=== PATIENT | female | born 1960 | race Caucasian/White ===

== ENCOUNTER 2016-07-31 13:51 | Observation (INO) | payer OTHER ==
[~2016-07-31] VITALS: Ht 160 cm; Wt 66.9 kg
[2016-07-31] MEDS ORDERED: SODIUM CHLORIDE 0.9% 1000ML 1,000 ML IV ONE (15:33)
[2016-07-31] MEDS ORDERED: [UNRECOGNIZED DRUG - CODE] TOP (15:42)
[2016-07-31] MEDS ORDERED: ESTVR2 VAGRING (15:42)
[2016-07-31] MEDS ORDERED: FLUO20CA35 PO (15:42)
[2016-07-31] MEDS ORDERED: ASTN (15:42)
[2016-07-31] MEDS ORDERED: SYN88 PO (15:42)
[2016-07-31] MEDS ORDERED: IBUP-1050 PO (15:42)
[2016-07-31] MEDS ORDERED: DIPH1TAB PO (15:43)
[2016-07-31 16:05] LABS: URINE APPEARANCE CLEAR (CLEAR); URINE BILIRUBIN NEG (NEG); URINE COLOR YELLOW; URINE NITRITE NEG (NEG); URINE PH 6.5 (4.5-7.5); URINE SPECIFIC GRAVITY 1.004 (1.000-1.030); UROBILINOGEN NEG (NEG); ZZUR CULT IF INDIC CLEAN CATCH NO
[2016-07-31 16:10] LABS: MANUAL MICROSCOPIC REQUIRED? NO; REVIEW REQ? YES
--- NOTE | 2016-07-31 16:16 | EMERGENCY ROOM VISIT NOTE ---
History Report prepared by Iraj: Arturo Washington Under the Supervision of: Dr. Denny Box D.O. First contact with patient: 15:24 Chief Complaint: FEVER Stated Complaint: FEVER THIS AM - PATIENT HAS NO SPLEEN History of Present Illness The patient is a 56 year old female who presents to the Emergency Room with complaints of an intermittent fever starting last night. 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 This morning, her highest temperature was 101.8. She also reports chills and diaphoresis. She took Motrin with some relief. For the past week, the patient has been having a cough, runny nose, and sore throat. She received a flu shot this year. The patient denies any lower extremity swelling/ erythema, urinary symptoms, diarrhea, or any other complaints. She has a history of Hodgkin's disease and hypothyroidism. She denies any history of cancer. Her daughter had a fever last week. Source of History: patient Onset: last night Position: other (global) Quality: other (fever) Modifying Factors (Relieving): other (Motrin with some relief) Associated Symptoms: + chills, + cough, + diaphoresis, + sorethroat, No diarrhea, No urinary symptoms Review of Systems See HPI for pertinent positives & negatives. A total of 10 systems reviewed and were otherwise negative. Past Medical & Surgical Medical Problems: (1) Anxiety (2) Chronic rhinitis (3) Hodgkin's disease (4) Hypothyroidism (5) Influenza A (6) Spleen absent Surgical Problems: (1) H/O mastectomy (2) H/O: hysterectomy (3) History of splenectomy (4) Hx of removal of ovary (5) S/P BSO (bilateral salpingo-oophorectomy) (6) S/P hysterectomy (7) S/P mastectomy, bilateral (8) S/P rhinoplasty (9) S/P splenectomy Family History Patient reports no known family medical history. Social History Smoking Status: Never Smoker Marital Status: Occupation Status: employed Current/Historical Medications Scheduled Azelastine Hcl (Astelin Nasal [place]), 2 SPRAYS NA BID Azithromycin (Azithromycin), 250 MG PO DAILY@2000 Clindamycin Hcl (Cleocin), 4 CAP PO UD Estradiol (Vivelle-Dot), 0.375 MG TOP DIRECTED Estradiol (Estring), 2 MG VAGRING [id number] Fluoxetine (Prozac), 20 MG PO QAM Levothyroxine Sodium (Synthroid), 88 MCG PO QAM Oseltamivir Phosphate (Tamiflu), 75 MG PO BID Scheduled PRN Diphenhydramine Hcl (Benadryl Allergy), 25 MG PO HS PRN for Sleep Ibuprofen (Advil), 200-600 MG PO Q4H PRN for Fever Lorazepam (Ativan), 0.5 MG PO BID PRN for Anxiety Allergies Coded Allergies: Penicillins (Verified Allergy, Mild, RASH, ITCHING, 07/31/16) Physical Exam Vital Signs Date Time Temp Pulse Resp B/P Pulse Ox O2 Delivery O2 Flow Rate FiO2 07/31/16 16:15 95 18 95/58 100 Room Air 07/31/16 16:06 100 Room Air 07/31/16 14:00 36.9 122 20 136/79 97 Room Air Physical Exam GENERAL: Patient is awake, alert, and in no acute distress. Patient is resting comfortably and showing no signs of anxiety EYES: Bilateral conjunctival injection noted. PERRL. EOMI. EARS, NOSE, MOUTH AND THROAT: The nose is without any evidence of any deformity. Mucous membranes are moist tongue is midline NECK: Left sided cervical adenopathy noted, no tenderness or firmness. RESPIRATORY: Normal respiratory effort is noted there is no evidence of wheezing rhonchi or rales CARDIOVASCULAR: Tachycardic rate and regular rhythm noted there no murmurs rubs or gallops normal S1 normal S2 GASTROINTESTINAL: The abdomen is soft. Bowel sounds are present in all quadrants. Abdomen is nontender MUSCULOSKELETAL/EXTREMITIES: There is no evidence of gross deformity full range of motion is noted in the hips and shoulders SKIN: There is no obvious evidence of any rash. There are no petechiae, pallor or cyanosis noted. NEUROLOGIC: Patient is awake alert and oriented x3 strength is symmetric patellar reflexes are 2+ bilaterally Medical Decision & Procedures ER Provider Diagnostic Interpretation: X-ray results as stated below per interpretation by me and the radiologist. CHEST ONE VIEW PORTABLE CLINICAL HISTORY: Sepsis FEVER COMPARISON STUDY: No previous studies for comparison. FINDINGS: There are surgical clips within the upper central abdomen and left upper quadrant. There are surgical clips project over the right breast and right axilla. Heart is normal in size. There is no failure. There are no pleural effusions. There is no focal pulmonary consolidation.[ Increased markings superior to the left aortic knob, likely representing a summation. IMPRESSION: AP portable study. No acute findings. Electronically signed by: Fredy Perry M.D. 07/31/2016 4:18 PM Dictated Date/Time: 07/31/2016 4:16 PM Laboratory Results Test 07/31/16 15:50 07/31/16 16:00 07/31/16 16:10 Urine Color YELLOW Urine Appearance CLEAR (CLEAR) Urine pH 6.5 (4.5-7.5) Urine Specific [place] 1.004 (1.000-1.030) Urine Protein NEG (NEG) Urine Glucose (UA) NEG (NEG) Urine Ketones NEG (NEG) Urine Occult Blood NEG (NEG) Urine Nitrite NEG (NEG) Urine Bilirubin NEG (NEG) Urine Urobilinogen NEG (NEG) Urine Leukocyte Esterase TRACE (NEG) Urine WBC (Auto) 1-5 /hpf (0-5) Urine RBC (Auto) 0-4 /hpf (0-4) Urine Hyaline Casts (Auto) 0 /lpf (0-5) Urine Epithelial Cells (Auto) >30 /lpf (0-5) Urine Bacteria (Auto) NEG (NEG) Influenza Type A (RT-PCR) POS for Influ A (NEG) Influenza Type A Antigen POS for Influ A (NEG) Influenza Type B Antigen Neg for Influ B (NEG) Influenza Type B (RT-PCR) Neg for Influ B (NEG) Immature Granulocyte % (Auto) 0.1 % White Blood Count 11.94 K/uL (4.8-10.8) Red Blood Count 4.90 M/uL (4.2-5.4) Hemoglobin 14.8 g/dL (12.0-16.0) Hematocrit 43.1 % (37-47) Mean Corpuscular Volume 88.0 fL (80-100) Mean Corpuscular Hemoglobin 30.2 pg (25-34) Mean Corpuscular Hemoglobin Concent 34.3 g/dl (32-36) Platelet Count 399 K/uL (130-400) Mean Platelet Volume 12.1 fL (7.4-10.4) Neutrophils (%) (Auto) 64.1 % Lymphocytes (%) (Auto) 13.8 % Monocytes (%) (Auto) 16.7 % Eosinophils (%) (Auto) 4.2 % Basophils (%) (Auto) 1.1 % Neutrophils # (Auto) 7.66 K/uL (1.4-6.5) Lymphocytes # (Auto) 1.65 K/uL (1.2-3.4) Monocytes # (Auto) 1.99 K/uL (0.11-0.59) Eosinophils # (Auto) 0.50 K/uL (0-0.5) Basophils # (Auto) 0.13 K/uL (0-0.2) Immature Granulocyte # (Auto) 0.01 K/uL (0.00-0.02) Erythrocyte Sedimentation Rate 21 mm/hr (0-21) Prothrombin Time 10.7 SECONDS (9.0-12.0) Prothromb Time International Ratio 1.0 (0.9-1.1) Activated Partial Thromboplast Time 32.0 SECONDS (21.0-31.0) Partial Thromboplastin Ratio 1.2 Magnesium Level 2.1 mg/dl (1.8-2.4) Total Bilirubin 0.3 mg/dl (0.2-1) Aspartate Amino Transf (AST/SGOT) 18 U/L (15-37) Alanine Aminotransferase (ALT/SGPT) 26 U/L (12-78) Alkaline Phosphatase 108 U/L (45-117) C-Reactive Protein 4.10 mg/dl (0-0.29) Total Protein 7.8 gm/dl (6.4-8.2) Albumin 3.8 gm/dl (3.4-5.0) Globulin 4.0 gm/dl (2.5-4.0) Albumin/Globulin Ratio 1.0 (0.9-2) Bedside Lactic Acid Venous 1.51 mmol/L (0.90-1.70) Laboratory results per my review. Medications Administered Medications (Trade) Dose Ordered Sig/Nannette Route Start Time Stop Time Status Last Admin Dose Admin Sodium Chloride 1,000 ml @ 999 mls/hr Q1H1M ONCE IV 07/31/16 15:33 07/31/16 16:33 DC 07/31/16 15:33 999 MLS/HR Sodium Chloride (Nss 1000ml) 1,000 ml @ 999 mls/hr Q1H1M STAT IV 07/31/16 16:36 07/31/16 17:36 DC 07/31/16 16:36 999 MLS/HR Oseltamivir Phosphate (Tamiflu Cap) 75 mg ONE STAT PO 07/31/16 16:36 07/31/16 16:37 DC 07/31/16 16:36 75 MG ED Course 1524: The patient was evaluated in room B11B. A complete history and physical examination were performed. 1533: Sodium Chloride 1000 ml @ 999 mls/hr IV 1636: Tamiflu Cap 75 mg PO, Sodium Chloride 1000 ml @ 999 mls/hr IV 1732: Upon reevaluation, the patient is resting comfortably. I discussed results and treatment plan with her. She verbalizes agreement and understanding. I spoke with Dr. [facility]. The patient will be evaluated for further management and care. Medical Decision Differential diagnosis: Etiologies such as viral syndrome, otitis, pharyngitis, pneumonia, influenza, meningitis, urinary tract infection, sepsis, bacteremia, as well as others were entertained. Nursing notes reviewed. The patient is a 56-year-old female who presented to the emergency department for an evaluation of fever. The patient's had fever as well as upper respiratory symptoms. Unfortunate patient has a history of splenectomy. She had very significant fever prior to arrival. She also had a few episodes of hypotension with responded nicely to IV hydration. I discussed the patient's laboratory radiographic studies with her. She was started on Tamiflu. Because of her history of having no spleen I also discussed his case with the on-call [facility] hospitalist group. They have agreed to evaluate the patient in the emergency apartment for further management and disposition. I will defer empiric antibiotic treatment to the admitting team. Consults Time Called: [phone] Consulting Physician: Dr. Campbell of the [facility] Hospitalist Service Returned Call: [phone] Campbell of the [facility]. Impression Primary Impression: Fever Additional Impressions: Influenza Transient hypotension Tachycardia History of splenectomy Scribe Attestation The scribe's documentation has been prepared under my direction and personally reviewed by me in its entirety. I confirm that the note above accurately reflects all work, treatment, procedures, and medical decision making performed by me. Departure Information Dispostion Being Evaluated By Hospitalist Prescriptions Oseltamivir Phosphate (Tamiflu) 75 Mg Cap 75 MG PO BID for 4 Days, #8 CAP take first dose at home 08/01 evening Prov: Santa Dinero CRNP 08/01/16 Azithromycin (Azithromycin) 250 Mg Tab 250 MG PO DAILY@1999 for 4 Days, #4 TAB take first dose at home on 08/01 evening Prov: Sanat Dinero CRNP 08/01/16 Referrals Bran Coughlin M.D.(JASON) (PCP) Patient Instructions My [facility] Problem Qualifiers
--- NOTE | 2016-07-31 16:19 | DIAGNOSTIC IMAGING REPORT ---
CHEST ONE VIEW PORTABLE CLINICAL HISTORY: Sepsis FEVER COMPARISON STUDY: No previous studies for comparison. FINDINGS: There are surgical clips within the upper central abdomen and left upper quadrant. There are surgical clips project over the right breast and right axilla. Heart is normal in size. There is no failure. There are no pleural effusions. There is no focal pulmonary consolidation.[ Increased markings superior to the left aortic knob, likely representing a summation. IMPRESSION: AP portable study. No acute findings. Electronically signed by: Fredy Perry M.D. 07/31/2016 4:18 PM Dictated Date/Time: 07/31/2016 4:16 PM
[2016-07-31 16:21] LABS: URINE EPITHELIAL CELL AUTO >30 /lpf (0-5)
[2016-07-31 16:22] LABS: BASO % 1.1 %; BASO ABS # 0.13 K/uL (0-0.2); COMPLETE YES; EOS % 4.2 %; HEMATOCRIT 43.1 % (37-47); IG% 0.1 %; LYMPH % 13.8 %; LYMPH ABS # 1.65 K/uL (1.2-3.4); MEAN CORPUSCULAR HEMOGLOBIN 30.2 pg (25-34); MEAN CORPUSCULAR HGB CONC 34.3 g/dl (32-36); MEAN PLATELET VOLUME 12.1 fL (7.4-10.4); MONO % 16.7 %; NEUT % 64.1 %; PLATELET COUNT 399 K/uL (130-400); WHITE BLOOD COUNT 11.94 K/uL (4.8-10.8)
[2016-07-31 16:31] LABS: PARTIAL THROMBOPLASTIN RATIO 1.2; PROTHROMBIN TIME (PATIENT) 10.7 SECONDS (9.0-12.0)
[2016-07-31] MEDS ORDERED: OSELTAMIVIR PHOSPHATE 75 MG CAP PO STA (16:36)
[2016-07-31] MEDS ORDERED: SODIUM CHLORIDE 0.9% 1000ML 1,000 ML IV STA (16:36)
[2016-07-31 16:47] LABS: BUN/CREATININE RATIO 14.2 (10-20); C-REACTIVE PROTEIN 4.1 mg/dl (0-0.29); MAGNESIUM 2.1 mg/dl (1.8-2.4); POTASSIUM 3.6 mmol/L (3.5-5.1)
[2016-07-31 17:50] LABS: INFLUENZA A PCR POS for Influ A (NEG); INFLUENZA B PCR Neg for Influ B (NEG)
[2016-07-31] MEDS ORDERED: LORAZEPAM 0.5 MG TAB PO PRN (18:00)
[2016-07-31] MEDS ORDERED: MAGNESIUM HYDROXIDE SUSP 30 ML UDC PO PRN (18:00)
[2016-07-31] MEDS ORDERED: ONDANSETRON INJ 2 MG/ML 2 ML VIAL IV PRN (18:00)
[2016-07-31] MEDS ORDERED: ESTRADIOL 2 MG VAGRING SCH (18:00)
[2016-07-31] MEDS ORDERED: POLYETHYLENE (MIRALAX) 17 GM PACK PO PRN (18:00)
[2016-07-31] MEDS ORDERED: IBUPROFEN 200 MG TAB PO PRN (18:00)
[2016-07-31] MEDS ORDERED: ALUMINUM/MAGNESIUM/SIMETH (MAALOX MAX) 30 ML UDC PO PRN (18:00)
[2016-07-31] MEDS ORDERED: ZOLPIDEM TARTRATE 5 MG TAB PO PRN (18:00)
[2016-07-31] MEDS ORDERED: LORA-741 PO (18:06)
[2016-07-31] MEDS ORDERED: CLIN150C PO (18:06)
--- NOTE | 2016-07-31 18:56 | History and Physical ---
History & Physical Date & Time of Service: Jul 31, 2016 at 18:07 Chief Complaint: Fever This Am - Patient Has No Spleen Primary Care Physician: Bran Coughlin M.D.(JASON) History of Present Illness Source: patient, spouse ( at bedside who is a physician), clinic records This is a 56 year old female with PMH of Hodgkin's disease s/p radiation and splenectomy, hypothyroidism, and other problems listed below who presents to the ED with fever. Patient states she became ill 5 days ago with laryngitis like symptoms with loss of her voice for a few days. Since that time she also has rhinorrhea and mildly productive cough, intermittent headache. Then yesterday she developed low grade fever of 99 F for which she took ibuprofen. She awoke with chills overnight and took another dose. Then at 10 am she was feeling feverish so took 400 mg of ibuprofen, but 1 hour later had fever of 101.8, so took additional 200 mg. In the ER she has been afebrile. She had appetite loss with her fever but now feels hungry again. She denies chest pain, SOB, abdominal pain, N/V/D, dysuria, myalgias. Patient's daughter was ill with fever last week. Patient had a seasonal influenza vaccine on 04/29/2016. Past Medical/Surgical History Medical Problems: (1) Chronic rhinitis Status: Chronic (2) Hodgkin's disease Permanent Comment: s/p radiation, in remission Status: Chronic (3) Spleen absent Status: Resolved Surgical Problems: (1) H/O mastectomy Status: Resolved (2) H/O: hysterectomy Status: Resolved (3) History of splenectomy Status: Chronic (4) Hx of removal of ovary Status: Resolved (5) S/P BSO (bilateral salpingo-oophorectomy) Status: Chronic (6) S/P hysterectomy Status: Chronic (7) S/P mastectomy, bilateral Status: Chronic (8) S/P rhinoplasty Status: Chronic (9) S/P splenectomy Status: Chronic Family History Cardiac disorder GRANDFATHER GRANDMOTHER Hypertension FATHER Social History Smoking Status: Never Smoker Alcohol Use: none Marital Status: Housing status: lives with family Immunizations History of Influenza Vaccine: Yes Influenza Vaccine Date: Apr 29, 2016 History of Tetanus Vaccine?: Unknown History of Pneumococcal: Unknown Multi-Drug Resistant Organisms History of MDRO: No Allergies Coded Allergies: Penicillins (Verified Allergy, Mild, RASH, ITCHING, 07/31/16) Home Medications Scheduled Azelastine Hcl (Astelin Nasal [place]), 2 SPRAYS NA BID Azithromycin (Azithromycin), 250 MG PO DAILY@2000 Clindamycin Hcl (Cleocin), 4 CAP PO UD Estradiol (Vivelle-Dot), 0.375 MG TOP DIRECTED Estradiol (Estring), 2 MG VAGRING [id number] Fluoxetine (Prozac), 20 MG PO QAM Levothyroxine Sodium (Synthroid), 88 MCG PO QAM Oseltamivir Phosphate (Tamiflu), 75 MG PO BID Scheduled PRN Diphenhydramine Hcl (Benadryl Allergy), 25 MG PO HS PRN for Sleep Ibuprofen (Advil), 200-600 MG PO Q4H PRN for Fever Lorazepam (Ativan), 0.5 MG PO BID PRN for Anxiety Review of Systems Ten point review of systems performed with pertinent positives and negatives noted in HPI. Physical Exam Vital Signs Date Time Temp Pulse Resp B/P Pulse Ox O2 Delivery O2 Flow Rate FiO2 07/31/16 17:57 36.2 07/31/16 16:15 95 18 95/58 100 Room Air 07/31/16 16:06 100 Room Air 07/31/16 14:00 36.9 122 20 136/79 97 Room Air General Appearance: WD/WN, no apparent distress, + pertinent finding (very pleasant 56 year old female, at bedside) Head: normocephalic, atraumatic Eyes: normal inspection, PERRL, EOMI, sclerae normal ENT: hearing grossly normal, TMs normal, pharynx normal, + nasal congestion Neck: supple, trachea midline Respiratory/Chest: lungs clear, normal breath sounds, no respiratory distress, no accessory muscle use Cardiovascular: regular rate, rhythm, no murmur Abdomen/GI: normal bowel sounds, non tender, soft Extremities/Musculoskelatal: normal inspection, no calf tenderness, no pedal edema Neurologic/Psych: alert, normal mood/affect, oriented x 3 Skin: normal color, warm/dry Diagnostics Laboratory Results Results Past 24 Hours Test 07/31/16 15:50 07/31/16 16:00 07/31/16 16:10 Range/Units Urine Color YELLOW Urine Appearance CLEAR CLEAR Urine pH 6.5 4.5-7.5 Urine Specific [place] 1.004 1.000-1.030 Urine Protein NEG NEG Urine Glucose (UA) NEG NEG Urine Ketones NEG NEG Urine Occult Blood NEG NEG Urine Nitrite NEG NEG Urine Bilirubin NEG NEG Urine Urobilinogen NEG NEG Urine Leukocyte Esterase TRACE NEG Urine WBC (Auto) 1-5 0-5 /hpf Urine RBC (Auto) 0-4 0-4 /hpf Urine Hyaline Casts (Auto) 0 0-5 /lpf Urine Epithelial Cells (Auto) >30 0-5 /lpf Urine Bacteria (Auto) NEG NEG Influenza Type A (RT-PCR) POS for Influ A NEG Influenza Type A Antigen POS for Influ A NEG Influenza Type B Antigen Neg for Influ B NEG Influenza Type B (RT-PCR) Neg for Influ B NEG White Blood Count 11.94 4.8-10.8 K/uL Red Blood Count 4.90 4.2-5.4 M/uL Hemoglobin 14.8 12.0-16.0 g/dL Hematocrit 43.1 37-47 % Mean Corpuscular Volume 88.0 80-100 fL Mean Corpuscular Hemoglobin 30.2 25-34 pg Mean Corpuscular Hemoglobin Concent 34.3 32-36 g/dl Platelet Count 399 130-400 K/uL Mean Platelet Volume 12.1 7.4-10.4 fL Neutrophils (%) (Auto) 64.1 % Lymphocytes (%) (Auto) 13.8 % Monocytes (%) (Auto) 16.7 % Eosinophils (%) (Auto) 4.2 % Basophils (%) (Auto) 1.1 % Neutrophils # (Auto) 7.66 1.4-6.5 K/uL Lymphocytes # (Auto) 1.65 1.2-3.4 K/uL Monocytes # (Auto) 1.99 0.11-0.59 K/uL Eosinophils # (Auto) 0.50 0-0.5 K/uL Basophils # (Auto) 0.13 0-0.2 K/uL RDW Standard Deviation 46.8 36.4-46.3 fL RDW Coefficient of Variation 14.5 11.5-14.5 % Immature Granulocyte % (Auto) 0.1 % Immature Granulocyte # (Auto) 0.01 0.00-0.02 K/uL Erythrocyte Sedimentation Rate 21 0-21 mm/hr Prothrombin Time 10.7 9.0-12.0 SECONDS Prothromb Time International Ratio 1.0 0.9-1.1 Activated Partial Thromboplast Time 32.0 21.0-31.0 SECONDS Partial Thromboplastin Ratio 1.2 Sodium Level 139 136-145 mmol/L Potassium Level 3.6 3.5-5.1 mmol/L Chloride Level 101 98-107 mmol/L Carbon Dioxide Level 29 21-32 mmol/L Anion Gap 9.0 3-11 mmol/L Blood Urea Nitrogen 14 7-18 mg/dl Creatinine 1.00 0.60-1.20 mg/dl Est Creatinine Clear Calc Drug Dose 57.7 ml/min Estimated GFR () 72.9 Estimated GFR (Non- 62.9 BUN/Creatinine Ratio 14.2 10-20 Random Glucose 80 70-99 mg/dl Calcium Level 9.0 8.5-10.1 mg/dl Magnesium Level 2.1 1.8-2.4 mg/dl Total Bilirubin 0.3 0.2-1 mg/dl Aspartate Amino Transf (AST/SGOT) 18 15-37 U/L Alanine Aminotransferase (ALT/SGPT) 26 12-78 U/L Alkaline Phosphatase 108 45-117 U/L C-Reactive Protein 4.10 0-0.29 mg/dl Total Protein 7.8 6.4-8.2 gm/dl Albumin 3.8 3.4-5.0 gm/dl Globulin 4.0 2.5-4.0 gm/dl Albumin/Globulin Ratio 1.0 0.9-2 Bedside Lactic Acid Venous 1.51 0.90-1.70 mmol/L Microbiology Results 07/31/16 Blood Culture, Received Pending 07/31/16 Blood Culture, Received Pending Diagnostic Radiology CHEST ONE VIEW PORTABLE CLINICAL HISTORY: Sepsis FEVER COMPARISON STUDY: No previous studies for comparison. FINDINGS: There are surgical clips within the upper central abdomen and left upper quadrant. There are surgical clips project over the right breast and right axilla. Heart is normal in size. There is no failure. There are no pleural effusions. There is no focal pulmonary consolidation.[ Increased markings superior to the left aortic knob, likely representing a summation. IMPRESSION: AP portable study. No acute findings. Impression Assessment and Plan UPPER RESPIRATORY INFECTION Afebrile; +leukocytosis (WBC 11.9); + tachycardia; BP 90s-100s/50's; lactic acid 1.5 Influenza A positive CXR- no infiltrate Blood cultures pending Given Tamiflu and IVF's in ER Continue Tamiflu Add azithromycin to cover for possible superimposed acute bacterial bronchitis Continue IV fluids, PRN antipyretics Droplet precautions HODGKIN'S DISEASE S/p radiation and splenectomy; in remission HYPOTHYROIDISM Continue levothyroxine ANXIETY Stable; continue fluoxetine and PRN lorazepam DVT PROPHYLAXIS SCD's DISPOSITION Observation to med/ surg Follows with Dr. Coughlin for primary care Patient seen in collaboration with Dr. Campbell. Please see her addendum. ATTENDING NOTE : pt seen and examined, in agreement with above H&P 56 yo F with past medical hx of NHL s/p splenectomy presented with fever , chills , URI symptom Influenza A + ve P/E: gen : no sign of distress HEENT: sclera nonicteric Lungs: CTA HT: regular S1/S2 abdomen; soft, non tender ext : no lower ext edema Neuro: no focal deficit A/P : Influenza A : no evidence of sepsis Tamiflu PO for 5 days UTI ; possible due to above will order empiric abx with Zithromax increased risk for superimposed bacterial infection due to immunocompromised status -s/p splenectomy VTE Prophylaxis VTE Risk Assessment Done? Y/N: Yes Risk Level: Moderate
[2016-07-31 19:15] VITALS: BP 134/78; PULSE 105; TEMP 37.6; O2SAT 96
[2016-07-31] MEDS ORDERED: AZITHROMYCIN 250 MG TAB PO ONE (20:00)
[2016-07-31] MEDS: SODIUM CHLORIDE 0.9% 1000ML 1,000 ML IV SCH (21:02)
[2016-07-31] MEDS: OSELTAMIVIR PHOSPHATE 75 MG CAP PO SCH (21:04)
[2016-07-31 21:57] VITALS: BP 134/78; PULSE 105; TEMP 37.6; O2SAT 96; Ht 160 cm; Wt 66.9 kg
[2016-07-31 23:59] VITALS: BP 106/63; PULSE 111; TEMP 38.7; O2SAT 93
[2016-08-01] MEDS: ACETAMINOPHEN 325 MG TAB PO PRN ×2 (00:01→09:07)
[2016-08-01 01:09] VITALS: TEMP 37.5
[2016-08-01] MEDS: SODIUM CHLORIDE 0.9% 1000ML 1,000 ML IV SCH (04:30)
[2016-08-01 04:33] VITALS: TEMP 36.7
[2016-08-01] MEDS ORDERED: LEVOTHYROXINE 88 MCG TAB PO SCH (06:30)
[2016-08-01 07:10] VITALS: BP 101/63; PULSE 84; TEMP 36.8; O2SAT 93
[2016-08-01 07:15] LABS: HEMATOCRIT 38.7 % (37-47); MEAN CORPUSCULAR HEMOGLOBIN 29.8 pg (25-34); MEAN CORPUSCULAR HGB CONC 33.9 g/dl (32-36); MEAN PLATELET VOLUME 11.8 fL (7.4-10.4); PLATELET COUNT 361 K/uL (130-400); WHITE BLOOD COUNT 8.35 K/uL (4.8-10.8)
[2016-08-01 07:39] LABS: BUN/CREATININE RATIO 13.1 (10-20); CALCIUM 8.3 mg/dl (8.5-10.1); CREATININE 0.85 mg/dl (0.60-1.20)
[2016-08-01 08:00] VITALS: O2SAT 93
[2016-08-01] MEDS ORDERED: FLUOXETINE HCL 20 MG CAP PO SCH (08:00)
[2016-08-01] MEDS ORDERED: PANTOprazole SOD 40 MG TAB PO SCH (08:00)
[2016-08-01] MEDS: OSELTAMIVIR PHOSPHATE 75 MG CAP PO SCH (09:02)
--- NOTE | 2016-08-01 10:58 | Hospitalist Progress Note ---
Hospitalist Progress Note Date of Service Aug 01, 2016. Subjective Patient seen and examined Feeling much better this AM Cough is productive at time, feels it is due to post nasal drip Afebrile overnight, denies feeling feverish or chills No chest pain, shortness of breath, abdominal pain, nausea, lightheadedness, or dizziness Objective Vital Signs Date Time Temp Pulse Resp B/P Pulse Ox O2 Delivery O2 Flow Rate FiO2 08/01/16 08:00 93 Room Air 08/01/16 07:10 36.8 84 18 101/63 93 Room Air 08/01/16 04:33 36.7 08/01/16 01:09 37.5 08/01/16 00:00 Room Air 07/31/16 23:59 38.7 111 20 106/63 93 Room Air 07/31/16 23:59 38.7 07/31/16 21:57 37.6 105 20 134/78 96 Room Air 07/31/16 19:15 37.6 105 20 134/78 96 Room Air 07/31/16 18:17 101 18 107/57 99 Room Air 07/31/16 17:57 36.2 07/31/16 16:15 95 18 95/58 100 Room Air 07/31/16 16:06 100 Room Air 07/31/16 14:00 36.9 122 20 136/79 97 Room Air Physical Exam General Appearance: no apparent distress Eyes: normal inspection ENT: hearing grossly normal Neck: supple, no JVD Respiratory/Chest: lungs clear, normal breath sounds, no respiratory distress Cardiovascular: regular rate, rhythm, no edema Abdomen: normal bowel sounds, non tender, soft Neurologic/Psychiatric: no motor/sensory deficits, alert, normal mood/affect, oriented x 3 Skin: normal color, warm/dry Laboratory Results Last 24 Hours Test 07/31/16 15:50 07/31/16 16:00 07/31/16 16:10 08/01/16 06:35 Urine Color YELLOW Urine Appearance CLEAR Urine pH 6.5 Urine Specific [place] 1.004 Urine Protein NEG Urine Glucose (UA) NEG Urine Ketones NEG Urine Occult Blood NEG Urine Nitrite NEG Urine Bilirubin NEG Urine Urobilinogen NEG Urine Leukocyte Esterase TRACE Urine WBC (Auto) 1-5 /hpf Urine RBC (Auto) 0-4 /hpf Urine Hyaline Casts (Auto) 0 /lpf Urine Epithelial Cells (Auto) >30 /lpf Urine Bacteria (Auto) NEG Influenza Type A (RT-PCR) POS for Influ A Influenza Type A Antigen POS for Influ A Influenza Type B Antigen Neg for Influ B Influenza Type B (RT-PCR) Neg for Influ B White Blood Count 11.94 K/uL 8.35 K/uL Red Blood Count 4.90 M/uL 4.40 M/uL Hemoglobin 14.8 g/dL 13.1 g/dL Hematocrit 43.1 % 38.7 % Mean Corpuscular Volume 88.0 fL 88.0 fL Mean Corpuscular Hemoglobin 30.2 pg 29.8 pg Mean Corpuscular Hemoglobin Concent 34.3 g/dl 33.9 g/dl Platelet Count 399 K/uL 361 K/uL Mean Platelet Volume 12.1 fL 11.8 fL Neutrophils (%) (Auto) 64.1 % Lymphocytes (%) (Auto) 13.8 % Monocytes (%) (Auto) 16.7 % Eosinophils (%) (Auto) 4.2 % Basophils (%) (Auto) 1.1 % Neutrophils # (Auto) 7.66 K/uL Lymphocytes # (Auto) 1.65 K/uL Monocytes # (Auto) 1.99 K/uL Eosinophils # (Auto) 0.50 K/uL Basophils # (Auto) 0.13 K/uL RDW Standard Deviation 46.8 fL 48.0 fL RDW Coefficient of Variation 14.5 % 14.9 % Immature Granulocyte % (Auto) 0.1 % Immature Granulocyte # (Auto) 0.01 K/uL Erythrocyte Sedimentation Rate 21 mm/hr Prothrombin Time 10.7 SECONDS Prothromb Time International Ratio 1.0 Activated Partial Thromboplast Time 32.0 SECONDS Partial Thromboplastin Ratio 1.2 Sodium Level 139 mmol/L 145 mmol/L Potassium Level 3.6 mmol/L 4.0 mmol/L Chloride Level 101 mmol/L 112 mmol/L Carbon Dioxide Level 29 mmol/L 23 mmol/L Anion Gap 9.0 mmol/L 10.0 mmol/L Blood Urea Nitrogen 14 mg/dl 11 mg/dl Creatinine 1.00 mg/dl 0.85 mg/dl Est Creatinine Clear Calc Drug Dose 57.7 ml/min 67.9 ml/min Estimated GFR () 72.9 88.8 Estimated GFR (Non- 62.9 76.6 BUN/Creatinine Ratio 14.2 13.1 Random Glucose 80 mg/dl 85 mg/dl Calcium Level 9.0 mg/dl 8.3 mg/dl Magnesium Level 2.1 mg/dl Total Bilirubin 0.3 mg/dl Aspartate Amino Transf (AST/SGOT) 18 U/L Alanine Aminotransferase (ALT/SGPT) 26 U/L Alkaline Phosphatase 108 U/L C-Reactive Protein 4.10 mg/dl Total Protein 7.8 gm/dl Albumin 3.8 gm/dl Globulin 4.0 gm/dl Albumin/Globulin Ratio 1.0 Bedside Lactic Acid Venous 1.51 mmol/L Assessment and Plan INFLUENZA A / URI - patient presenting with 5 days laryngitis and rhinorrhea, fever x 1 day - in the ER, patient afebrile with mild leukocytosis, tachycardia; BP stable, negative lactic acid - WBC normalized today - spiked fever last night around midnight - improved with Tylenol/Motrin - no further fevers - no infiltrate on CXR, blood cultures pending - continue Tamiflu - will d/c IVF today - PO intake is good - empiric azithromycin for possible superimposed bacterial bronchitis - noted patient immunocompromised due to hx splenectomy HODGKIN'S DISEASE - s/p radiation and splenectomy; in remission HYPOTHYROIDISM - continue levothyroxine ANXIETY - continue fluoxetine and PRN lorazepam DVT PROPHYLAXIS - SCD's DISPOSITION - possible d/c later today
[2016-08-01 14:47] VITALS: BP 101/65; PULSE 85; TEMP 37; O2SAT 96
[2016-08-01] MEDS ORDERED: TMF75 PO (14:55)
[2016-08-01] MEDS ORDERED: ZTHM250 PO (14:55)
--- NOTE | 2016-08-01 15:04 | Discharge Instructions ---
Discharge Instructions Admission Reason for Admission: Influenza A Discharge Discharge Diagnosis / Problem: Influenza, Upper Respiratory Infection Discharge Goals Goal(s): Decrease discomfort, Improve function Activity Recommendations Activity Limitations: resume your previous activity . Instructions / Follow-Up Instructions / Follow-Up Follow up with Dr. Coughlin on SundayAugust 07 at 9:10 You were admitted to the hospital for influenza A. You were started on an antiviral called Tamiflu. You will need to take this medicine twice a day for a total of 5 days - you received this medicine while you were in the hospital and will complete the course at home You will take your first home dose of Tamiflu tonight. 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 You were started on an antibiotic called Zithromax (azithromycin) to cover any possible bacterial infection as well. You will need to take this medicine daily for a total of 5 days - you received this medicine while you were in the hospital and will complete the course at home You will take your first home dose of Zithromax (azithromycin) tonight. Continue to take your other medicines as prescribed. Current Hospital Diet Patient's current hospital diet: Regular Diet Discharge Diet Recommended Diet: Regular Diet Pending Studies Studies pending at discharge: yes List of pending studies: blood cultures Medical Emergencies . Who to Call and When: Medical Emergencies: If at any time you feel your situation is an emergency, please call 911 immediately. . Non-Emergent Contact Non-Emergency issues call your: Primary Care Provider Call Non-Emergent contact if: you have a fever, your pain is worsening, you have any medication questions . . "Provider Documentation" section prepared by Santa Dinero. VTE Core Measure Inpt VTE Proph given/why not?: SCD's
[2016-08-01 15:55] VITALS: BP 101/65; PULSE 85; TEMP 37; O2SAT 96
--- NOTE | 2016-08-01 17:38 | Discharge Summary ---
Discharge Summary Admission Date: Jul 31, 2016 at 17:46 Discharge Date: Aug 01, 2016 Discharge Disposition: Home Principal Diagnosis: INFLUENZA A Secondary Diagnoses/Problems: HX HODGKIN'S DISEASE HYPOTHYROIDISM ANXIETY Procedures: CXR IMPRESSION: AP portable study. No acute findings. Pending Studies/Follow-Up: Blood Cultures pending Medication Reconciliation New Medications: Azithromycin (Azithromycin) 250 Mg Tab 250 MG PO DAILY@2000 for 4 Days, #4 TAB take first dose at home on 08/01 evening Oseltamivir Phosphate (Tamiflu) 75 Mg Cap 75 MG PO BID for 4 Days, #8 CAP take first dose at home 08/01 evening Continued Medications: Azelastine Hcl (Astelin Nasal Citronelle) 200 Sprays/30 Ml Citronelle 2 SPRAYS NA BID, BTL Clindamycin Hcl (Cleocin) 150 Mg Cap 4 CAP PO UD for 10 Days, CAP 4 capsules by mouth 1 hour prior to dental work Diphenhydramine Hcl (Benadryl Allergy) 25 Mg Tab 25 MG PO HS PRN for Sleep Estradiol (Vivelle-Dot) 1 Patch Tdsy 0.375 MG TOP DIRECTED CHANGE TWICE A WEEK Estradiol (Estring) 2 Mg Vagring 2 MG VAGRING [id number] Fluoxetine (Prozac) 20 Mg Cap 20 MG PO QAM, CAP Ibuprofen (Advil) 200 Mg Tab 200-600 MG PO Q4H PRN for Fever, TAB Levothyroxine Sodium (Synthroid) 88 Mcg Tab 88 MCG PO QAM Lorazepam (Ativan) 0.5 Mg Tab 0.5 MG PO BID PRN for Anxiety, TAB Admission Information HPI (per Admitting provider): This is a 56 year old female with PMH of Hodgkin's disease s/p radiation and splenectomy, hypothyroidism, and other problems listed below who presents to the ED with fever. Patient states she became ill 5 days ago with laryngitis like symptoms with loss of her voice for a few days. Since that time she also has rhinorrhea and mildly productive cough, intermittent headache. Then yesterday she developed low grade fever of 99 F for which she took ibuprofen. She awoke with chills overnight and took another dose. Then at 10 am she was feeling feverish so took 400 mg of ibuprofen, but 1 hour later had fever of 101.8, so took additional 200 mg. In the ER she has been afebrile. She had appetite loss with her fever but now feels hungry again. She denies chest pain, SOB, abdominal pain, N/V/D, dysuria, myalgias. Patient's daughter was ill with fever last week. Patient had a seasonal influenza vaccine on 04/29/2016. Physical Exam (per Admitting): General Appearance: WD/WN, no apparent distress, + pertinent finding Head: normocephalic, atraumatic Eyes: normal inspection, PERRL, EOMI, sclerae normal ENT: hearing grossly normal, TMs normal, pharynx normal, + nasal congestion Neck: supple, trachea midline Respiratory/Chest: lungs clear, normal breath sounds, no respiratory distress, no accessory muscle use Cardiovascular: regular rate, rhythm, no murmur Abdomen/GI: normal bowel sounds, non tender, soft Extremities/Musculoskelatal: normal inspection, no calf tenderness, no pedal edema Neurologic/Psych: alert, normal mood/affect, oriented x 3 Skin: normal color, warm/dry Hospital Course INFLUENZA A / URI - patient presenting with 5 days laryngitis and rhinorrhea, fever x 1 day - in the ER, patient afebrile with mild leukocytosis, tachycardia; BP stable, negative lactic acid - + influenza A - WBC normalized today - spiked fever x 1 while hospitalized - improved with Tylenol/Motrin - no infiltrate on CXR, blood cultures pending - continue Tamiflu to complete 5 day course - empiric azithromycin for possible superimposed bacterial bronchitis - to complete 5 day course - noted patient immunocompromised due to hx splenectomy HODGKIN'S DISEASE - s/p radiation and splenectomy; in remission HYPOTHYROIDISM - continue levothyroxine ANXIETY - continue fluoxetine and PRN lorazepam Total time spent on discharge = 30 minutes This includes examination of the patient, discharge planning, medication reconciliation, and communication with other providers. Discharge Instructions Discharge Instructions Admission Reason for Admission: Influenza A Discharge Discharge Diagnosis / Problem: Influenza, Upper Respiratory Infection Discharge Goals Goal(s): Decrease discomfort, Improve function Activity Recommendations Activity Limitations: resume your previous activity . Instructions / Follow-Up Instructions / Follow-Up Follow up with Dr. Coughlin on SundayAugust 07 at 9:10 You were admitted to the hospital for influenza A. You were started on an antiviral called Tamiflu. You will need to take this medicine twice a day for a total of 5 days - you received this medicine while you were in the hospital and will complete the course at home You will take your first home dose of Tamiflu tonight. 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 You were started on an antibiotic called Zithromax (azithromycin) to cover any possible bacterial infection as well. You will need to take this medicine daily for a total of 5 days - you received this medicine while you were in the hospital and will complete the course at home You will take your first home dose of Zithromax (azithromycin) tonight. Continue to take your other medicines as prescribed. Current Hospital Diet Patient's current hospital diet: Regular Diet Discharge Diet Recommended Diet: Regular Diet Pending Studies Studies pending at discharge: yes List of pending studies: blood cultures Medical Emergencies . Who to Call and When: Medical Emergencies: If at any time you feel your situation is an emergency, please call 911 immediately. . Non-Emergent Contact Non-Emergency issues call your: Primary Care Provider Call Non-Emergent contact if: you have a fever, your pain is worsening, you have any medication questions . . "Provider Documentation" section prepared by Santa Dinero. VTE Core Measure Inpt VTE Proph given/why not?: SCD's Additional Copies To Bran Coughlin M.D.(JASON)
[2016-08-01] MEDS ORDERED: AZITHROMYCIN 250 MG TAB PO SCH (20:00)
== END 2016-08-01 17:17 | disposition home or self-care (01) ==
LOC: ENRESERVTM → ENRESERVDT → C.EDB 13:54 → C.MS4W 17:46
PROVIDERS: ADMIT Hospitalist; ATTEND Internal Medicine
DX: J09.X2 Influenza due to identified novel influenza A virus with other respiratory manifestations (principal); J06.9 Acute upper respiratory infection, unspecified; E03.9 Hypothyroidism, unspecified; F41.9 Anxiety disorder, unspecified; Z92.3 Personal history of irradiation; Z85.71 Personal history of Hodgkin lymphoma; Z90.710 Acquired absence of both cervix and uterus; Z90.81 Acquired absence of spleen; Z90.721 Acquired absence of ovaries, unilateral; Z90.79 Acquired absence of other genital organ(s); Z90.13 Acquired absence of bilateral breasts and nipples; Z88.0 Allergy status to penicillin; Z82.49 Family history of ischemic heart disease and other diseases of the circulatory system; I95.9 Hypotension, unspecified

== ENCOUNTER → 2018-02-20 | Outpatient (CLI) | payer OTHER ==
[~2018-02-20] MED LIST: ASTN; AZIT-57 PO; CLIN150C PO; DIPH1TAB87 PO; ESTVR2 VAGRING; FLUO20CA35 PO; IBUP-1050 PO; LORA-741 PO; SYN88 PO; TMF75 PO; [UNRECOGNIZED DRUG - CODE] TOP
[2018-02-20 09:38] LABS: HEMATOCRIT 42.2 % (37-47); HEMOGLOBIN 14.2 g/dL (12.0-16.0); MEAN CELL VOLUME 89.4 fL (80-100); MEAN CORPUSCULAR HEMOGLOBIN 30.1 pg (25-34); MEAN CORPUSCULAR HGB CONC 33.6 g/dl (32-36); MEAN PLATELET VOLUME 12.1 fL (7.4-10.4); PLATELET COUNT 423 K/uL (130-400); RED CELL DISTRIBUTION WIDTH CV 14.8 % (11.5-14.5); RED CELL DISTRIBUTION WIDTH SD 48.1 fL (36.4-46.3); WHITE BLOOD COUNT 7.29 K/uL (4.8-10.8)
[2018-02-20 10:04] LABS: BLOOD UREA NITROGEN 23 mg/dl (7-18); CALCIUM 9.4 mg/dl (8.5-10.1); CARBON DIOXIDE 30 mmol/L (21-32); CHOLESTEROL 210 mg/dl (0-200); CREATININE 0.89 mg/dl (0.60-1.20); GLUCOSE 93 mg/dl (70-99); GLUCOSE,FASTING 93 mg/dl (70-99); LDL CHOLESTEROL CALCULATED 99 mg/dl; POTASSIUM 4.3 mmol/L (3.5-5.1); SODIUM 140 mmol/L (136-145)
== END | disposition home or self-care (01) ==
LOC: C.LAB 08:29
PROVIDERS: ATTEND Family Medicine
DX: Z00.00 Encounter for general adult medical examination without abnormal findings (principal); C81.10 Nodular sclerosis Hodgkin lymphoma, unspecified site; Z11.59 Encounter for screening for other viral diseases; E03.9 Hypothyroidism, unspecified

== ENCOUNTER 2023-05-26 21:53 | Inpatient (IN) ==
--- OUTSIDE RECORDS SUMMARY | 2023-05-26 22:06 | External Medical Summary | Summary of Care ---
Author Name Unknown Organization [facility] Address [address] [facility] [place] [address] Phone [phone] Care Team Providers Care Bilingual Inside Sales Representative Name Role Phone Edwin Dupont Primary Care Provider Reason for Visit * Reason Comments Nurse Documentation Encounter Details Date Type Department Care Team (Late st Contact Info) Description 05/25/2023 10:30 AM EST Immunization/I njection Ancillary [facility] [address] [place] [address] [facility] [address] [place] [address] Need for vaccination for zoster* Allergies Active Allergy Reactions Criticality Noted Date Comments Penicillins 08/02/2000 itching documented as of this encounter (statuses as of 05/25/2023) Medications Medication Sig Dispensed Refills Start Date End Date Status ASTELIN 137 MCG/SPRAY NA SOLN 2 sprays each nostril BID 1 5 12/26/2004 Active propranolol (INDERAL) 20 MG Tablet TAKE 1 TABLET TWICE A DAY NEEDED PALPITATIONS 12 09/03/2016 Active clindamycin (CLEOCIN) 150 MG CapsuleIndications :SBE (subacute bacterial endocarditis) prophylaxis candidate 4 capsules one hour prior to dental work. 4 Cap 0 02/10/2019 Active Additional Information Patient not taking.Reported on 10/10/2022 Albuterol Sulfate (VENTOLIN HFA) 108 (90 Base) MCG/ACT AERS Inhale 2 Puffs by mouth every 4 hours as needed for Wheezing. 18 g 3 02/12/2020 Active Vitamin B 12 500 MCG Oral Tablet Take by mouth as needed. 0 Active Polyethylene Glycol 3350 Powder Use 17 g as directed in the morning. 0 Active Estring 2 MG Vaginal Ring (Estradiol)Indicat ions:Postmenopausa l atrophic vaginitis change 2 months 3 Each 3 11/26/2020 Active Clindamycin HCl 300 MG Oral Capsule TAKE 2 CAPSULES BY MOUTH 1 HOUR PRIOR TO APPOINTMENT 0 08/18/2021 Active Vitamin D3 25 MCG (1000 UT) Oral Tablet Take 1 Tablet by mouth in the morning. 0 Active FLUoxetine HCl 20 MG Oral Capsule (PROzac)Indication s:Adjustment disorder with depressed mood TAKE 1 CAPSULE BY MOUTH IN THE MORNING 90 Capsule 3 11/07/2022 Active LORazepam 0.5 MG Oral Tablet (Ativan)Indication s:Insomnia, unspecified type Take 1 Tablet by mouth every 6 hours as needed for Insomnia. 30 Tablet 0 04/17/2023 Active Doxepin HCl 10 MG Oral Capsule (SINEquan)Indicati ons:Insomnia, unspecified type Take 1 Capsule by mouth at bedtime as needed for Insomnia. 30 Capsule 11 04/17/2023 Active Levothyroxine Sodium 88 MCG Oral Tablet (Levoxyl)Indicatio ns:Hypothyroidism, unspecified type TAKE 1 TABLET BY MOUTH DAILY WITH A GLASS OF WATER 90 Tablet 3 04/20/2023 Active documented as of this encounter (statuses as of 05/25/2023) Active Problems Problem Noted Date Diagnosed Date Somatic dysfunction of pelvic region 10/04/2021 Hypovitaminosis D 10/04/2021 History of splenectomy 08/07/2016 ADVANCE DIRECTIVE INFORMATION 06/06/2006 Overview: Yes-advised to bring copy in to be scanned into EMR. SBE (subacute bacterial endocarditis) prophylaxi s candidate 12/26/2004 HODG NODUL SCLERO -IA Mantle XRT 1981 06/09/2002 Overview: needs yearly CBC, platelets, ESR, BMP, TSH, mammogram, CXR for post cancer treatment surveillance. Needs pneumovax and meningitis vaccine every 5-7 years. needs yearly influenza vaccine. Cancer guidelines from www.nccn.org Http://www.nccn.org/professionals/physician_gls/PDF/hodgkins.pdf From Journal of National cancer institute, vol 97, no apr 05, 2005 pg 0235- 1439 Greater than 25% risk of breast cancer Chronic rhinitis 06/09/2002 Hypothyroidism 06/09/2002 BENIGN NEOPLASM SKIN -Dysplastic nevi 06/09/2002 documented as of this encounter (statuses as of 05/25/2023) Resolved Problems Problem Noted Date Diagnosed Date Resolved Date H/O splenomegaly 09/17/2015 10/04/2021 Uterine leiomyoma 02/21/2005 07/12/2006 Excessive menstruation 02/21/200507/12 documented as of this encounter (statuses as of 05/25/2023) Immunizations Name Administration Dates Next Due COVID-19 mRNA, LNP-s, No Pre serve, 2-Dose Series (Haofangtong) 04/13/2021,08/26/2020,08/05/2020 COVID-19, LNP-s, No Preserve , Wallace-sucrose, Ages 12+ (Haofangtong) 11/04/2021 COVID-19, MRNA-LNP, 23-24, P F, 30 MCG/0.3 mL, 12 YRS AND ABOVE, IM (Bellco-Comirnaty) 04/19/2023 Covid-19, Mrna, Lnp-s, Pf, B ivalent, 30 Mcg, IM, 12 yrs and above (Haofangtong) 04/25/2022 HIB PRP-OMP, 3 dose (Pedvax) 09/27/2016 Meningococcal B, 2/3-Dose Se johnie (TRUMENBA) 09/13/2020,02/12/2020 Meningococcal Conjugate Vacc ine (Menactra/Menveo) 08/07/2016,08/31/2008 Pneumococcal Conjugate Vacc, 13 Valent (Prevnar) 09/27/2016 Pneumococcal Conjugate Vacci ne, 7 Valent 08/28/2007 Pneumococcal Polysaccharide PPV23 (Pneumovax) 04/13/2022,08/07/2016 SEASONAL INFLUENZA, PF, 6 M & Above, IM , (FLULAVAL or FLUZONE) 04/07/2023,04/08/2022,03/19/2021,03/12,05/01/2019,05/02/2018,04/02/2017 Seasonal Influenza, Quadriva lent, No Preserve, IM 04/29/2016,04/07/2015 Seasonal Influenza, Split, I IV3, With Preserve, Inj 04/02/2014,04/16/2013,05/10/2012,03/29 TDAP (age 10 and older)(Boostrix) 02/10/2019 TDAP (age 11 and older)(Adacel) 01/29/2008 Zoster Vaccine Recombinant (Shingrix) 05/25/2023 ,10/10/2022 documented as of this encounter Social History Tobacco Use Types Packs/Day Years Used Date Smoking Tobacco: Never Passive Smoke Exposure: Never Smokeless Tobacco: Never Comments:no passive smoke Alcohol Use Standard Drinks/Week Comments Yes 0 (1 standard drink = 0.6 oz pur e alcohol) occ wine PHQ-2 Answer Date Recorded PHQ Adult Total Score 0 04/17/2023 Hunger Vital Sign Answer Date Recorded Within the past 12 months, y ou worried that your food would run out before you got the money to buy more. Never true 04/17/20 23 Within the past 12 months, t he food you bought just didn't last and you didn't have money to get more. Never true 04/17/2023 Sex and Gender Information Value Date Recorded Sex Assigned at Female 04/10/2022 7:23 PM EDT Gender Identity Female 04/10/2022 7:23 PM EDT Sexual Orientation Straight 04/10/2022 7: 23 PM EDT Job Start Date Occupation Industry Not on file Not on file Not on file documented as of this encounter Plan of Treatment Upcoming Encounters Date Type Department Care Team (Late st Contact Info) Description 10/08/2023 10:45 AM EDT Office Visit Dermatology [facility] [place] [address] [place] [address] Augie Loredo MD [address] [place] [address] 10/24/2023 9:40 AM EDT Office Visit Family Practice [facility] [address] [place] [id number] Edwin Dupont DO [address] [place] [address] Scheduled Procedures Name Priority Associated Diagnoses Date/Ti me COLONOSCOPY FLEXIBLE PROXIMAL DIAGNOSTIC Recall Screen for colon cancer Health Maintenance Due Date Last Done Comments Cologuard 01/12/2005 Fecal Occult Blood Test 01/12/2005 09/09/2001 Sigmoidoscopy 01/12/2005 MENINGOCOCCAL (MENACTRA/MENVEO) (3 - Risk 2-dose series) 08/07/2021 08/07/2016, 08/31/2008, 07/29/2001 Meningitis B Vaccine (Bexsero/Trumemba) (3 of 4 - Increased Risk Trumenba 3-dose series) 09/13/2021 09/13/2020, 02/12/2020 TSH 12/03/2022 12/03/2021, 03/2021, 04/09/2021, Additional history exists Depression Screening 04/17/2024 04/17/2023 Diabetes Screening 12/03/2024 12/03/2021, 0 12/03/2021, 04/09/2021, Additional history exists Lipid Panel 12/03/2026 12/03/2021, 03/2021, 04/09/2021, Additional history exists Pneumococcal Vaccine: Pediatrics (0 to 5 Years) and At-Risk Patients (6 to 64 Years) (4 - PPSV23 or PCV20) 04/13/2027 04/13/2022, 09/27/2016, 08/07/2016 DTaP,Tdap,and Td Vaccines (3 - Td or Tdap) 02/10/2029 02/10/2019, 01/29/2008 Colonoscopy 11/12/2030 11/12/2020, 10/30, 01/10/2011 Colorectal Cancer Screening 11/12/2030 Influenza Vaccine (FLU shot) Completed 12/2022, 04/08/2022, 03/19/2021, Additional history exists COVID-19 Vaccine Completed 04/19/2023, , 11/04/2021, Additional history exists Zoster Vaccines Completed 05/25/2023, 10/10/2022 GARDASIL-HPV IMMUNIZATION SERIES Aged Out No longer eligible based on patient's age to complete this topic Hepatitis B Aged Out No longer eligi ble based on patient's age to complete this topic documented as of this encounter Medical Devices Not on filedocumented as of this encounter Visit Diagnoses Diagnosis Need for vaccination for zoster- Primary Need for prophylactic vaccination and inoculation against other viral diseases documented in this encounter Additional Health Concerns Infection Onset Date Last Indicated Resolved Time COVID-19 (confirmed) 11/14/2021 11/14/2021 documented as of this encounter Care Teams Bilingual Inside Sales Representative Relationship Specialty Start Date End Date Edwin Dupont DO [address] [place] [address] PCP - General Family Medicine 10/14/20 documented as of this encounter
--- OUTSIDE RECORDS SUMMARY | 2023-05-26 22:06 | External Medical Summary | Summary of Care ---
Author Name Unknown Organization [facility] Address [address] [place] [address] Phone [phone] Care Team Providers Care Acoustics Teacher Name Role Phone Edwin Dupont DO Primary Care Provider Encounter Details Date Type Department Care Team Description 01/01/2023 Orders Only Outcomes Research Department [address] [place] [address] Omaira Boucher CHRA [employer] Other*[id number] Allergies Active Allergy Reactions Severity Noted Date Comments Penicillins 08/02/2000 itching documented as of this encounter (statuses as of 01/01/2023) Medications Medication Sig Dispensed Refills Start Date [...] for Wheezing. 18 g 3 02/12/2020 Active Hydrocortisone Acetate 25 MG Rectal Suppository (Anusol HC) PLACE 1 SUPPOSITORY RECTALLY TWICE A DAY DIRECTED 0 08/21/2020 Active Vitamin B 12 500 MCG Oral [...] D3 25 MCG (1000 UT) Oral Tablet (Vitamin D3) Take 1 Tablet by mouth in the morning. 0 Active LORazepam 0.5 MG Oral Tablet (Ativan)Indication s:Insomnia, unspecified type Take 1 Tablet by mouth every 6 hours as needed for Insomnia. 30 Tablet 0 10/10/2022 Active Levothyroxine Sodium 88 MCG Oral Tablet (Levoxyl)Indicatio ns:Hypothyroidism, unspecified type TAKE 1 TABLET BY MOUTH DAILY WITH A GLASS OF WATER 90 Tablet 1 10/28/2022 Active FLUoxetine HCl 20 MG Oral Capsule (PROzac)Indication s:Adjustment disorder with depressed mood TAKE 1 CAPSULE BY MOUTH IN THE MORNING 90 Capsule 3 11/07/2022 Active documented as of this encounter (statuses as of 01/01/2023) Active Problems Problem Noted Date Somatic dysfunction of pelvic region 10/2021 Hypovitaminosis D 10/04/2021 History of splenectomy 08/07/2016 ADVANCE DIRECTIVE INFORMATION 06/06/2006 Overview: Yes-advised to bring copy in to be scanned into EMR. SBE (subacute bacterial endocarditis) pr ophylaxis candidate 12/26/2004 HODG NODUL SCLERO -IA Mantle XRT 1981 Overview: needs yearly CBC, platelets, ESR, BMP, TSH, mammogram, CXR for post cancer treatment surveillance. Needs pneumovax and meningitis vaccine every 5-7 years. needs yearly influenza vaccine. Cancer guidelines from www.nccn.org Http://www.nccn.org/professionals/physician_gls/PDF/hodgkins.pdf From Journal of National cancer institute, vol 97, no apr 05, 2005 pg 1421- 143 Greater than 25% risk of breast cancer Chronic rhinitis 06/09/2002 Hypothyroidism 06/09/2002 BENIGN NEOPLASM SKIN -Dysplastic nevi documented as of this encounter (statuses as of 01/01/2023) Resolved Problems Problem Noted Date Resolved Date H/O splenomegaly 09/17/2015 10/04/2021 Uterine leiomyoma 02/21/2005 07/12/2006 Excessive menstruation 02/21/2005 7 documented as of this encounter (statuses as of 01/01/2023) Immunizations Name Administration Dates Next Due COVID-19 mRNA, LNP-s, No Pre serve, 2-Dose Series (Agitar) 04/13/2021,08/26/2020,08/05/2020 COVID-19, LNP-s, No Preserve , Wallace-sucrose, Ages 12+ (Pfizer) 11/04/2021 Covid-19, Mrna, Lnp-s, Pf, B ivalent, 30 Mcg, IM, 12 yrs and above (Pfizer) 04/25/2022 HIB 3 dose (Pedvax) 09/27/2016 Meningococcal B, 2/3-Dose Se johnie (TRUMENBA) 09/13/2020,02/12/2020 Meningococcal Conjugate Vacc ine (Menactra/Menveo) 08/07/2016,08/31/2008 Pneumococcal Conjugate Vacc, 13 Valent (Prevnar) 09/27/2016 Pneumococcal Conjugate Vacci ne, 7 Valent 08/28/2007 Pneumococcal Polysaccharide PPV23 (Pneumovax) 04/13/2022,08/07/2016 Seasonal Influenza, Quadriva lent, No Preserve, 6 Mons & Above, IM 04/08/2022,03/19/2021,03/12/2020,05/01,05/02/2018,04/02/2017 Seasonal Influenza, Quadriva lent, No Preserve, IM 04/29/2016,04/07/2015 Seasonal Influenza, Split, I IV3, With Preserve, Inj 04/02/2014,04/16/2013,05/10/2012,03/29 TDAP (age 10 and older)(Boostrix) 02/10/2019 TDAP (age 11 and older)(Adacel) 01/29/2008 Zoster Vaccine Recombinant (Shingrix) 10/10/2022 documented as of this encounter Social History Tobacco Use Types Packs/Day Years Used Date Smoking Tobacco: Never Passive Smoke Exposure: Never Smokeless Tobacco: Never Comments:no passive smoke Alcohol Use Standard Drinks/Week Comments Yes 0 (1 standard drink = 0.6 oz pur e alcohol) occ wine Food Insecurity Answer Date Recorded Within the past 12 months, y ou worried that your food would run out before you got money to buy more. Never true 04/10/2022 Within the past 12 months, t he food you bought just didn't last and you didn't have money to get more. Never true 04/10/2022 Sex Assigned at Date Recorded Female 04/10/2022 7:23 PM E DT Job Start Date Occupation Industry Not on file Not on file Not on file documented as of this encounter Plan of Treatment Upcoming Encounters Date Type Specialty Care Team Description 04/17/2023 Office Visit Family Medicine Edwin Dupont, [address] [place] [address] 10/03/2023 Office Visit Dermatology Korina Acuna MD Scheduled Orders Name Type Priority Associated Diagnoses Orde r Schedule MYCODE INITIAL ADULT Lab Routine [employer] Other*[id number] Expected: 01/01/2023 (Approximate), Expires: 01/21/2024 Scheduled Procedures Name Priority Associated Diagnoses Date/Ti me COLONOSCOPY FLEXIBLE PROXIMAL DIAGNOSTIC Recall Screen for colon cancer Health Maintenance Due Date Last Done Comments Cologuard 01/12/2005 Fecal Occult Blood Test 01/12/2005 09/09/2001 Sigmoidoscopy 01/12/2005 MENINGOCOCCAL (MENACTRA/MENVEO) (3 - Risk 2-dose series) 08/07/2021 08/07/2016, 08/31/2008, 07/29/2001 Meningitis B Vaccine (Bexsero/Trumemba) (3 of 4 - Increased Risk Trumenba 3-dose series) 09/13/2021 09/13/2020, 02/12/2020 Depression Screening, Annual for Pts 12 and Over 10/04/2022 10/04/2021 TSH 12/03/2022 12/03/2021, 10/0 03/2021, 04/09/2021, Additional history exists Zoster Vaccines (2 of 2) 12/05/2022 10/10/2022 Diabetes Screening 12/03/2024 12/03/2021, 0 12/03/2021, 04/09/2021, Additional history exists Lipid Panel 12/03/2026 12/03/2021, 03/2021, 04/09/2021, Additional history exists Pneumococcal Vaccine: Pediatrics (0 to 5 Years) and At-Risk Patients (6 to 64 Years) (4 - PPSV23 if available, else PCV20) 04/13/2027 04/13/2022, 09/27/2016, 08/07/2016 DTaP,Tdap,and Td Vaccines (3 - Td or Tdap) 02/10/2029 02/10/2019, 01/29/2008 Colonoscopy 11/12/2030 11/12/2020, 10/30, 01/10/2011 Colorectal Cancer Screening 11/12/2030 Influenza Vaccine (FLU shot) Completed 01/2022, 03/19/2021, 03/12/2020, Additional history exists COVID-19 Vaccine Completed 04/25/2022, 11/2021, 04/13/2021, Additional history exists GARDASIL-HPV IMMUNIZATION SERIES Aged Out No longer eligible based on patient's age to complete this topic Hepatitis B Aged Out No longer eligi ble based on patient's age to complete this topic documented as of this encounter Medical Devices Not on filedocumented as of this encounter Visit Diagnoses Diagnosis [employer] Other*[id number] documented in this encounter Additional Health Concerns Infection Onset Date Last Indicated Resolved Time COVID-19 (confirmed) 11/14/2021 11/14/2021 documented as of this encounter Care Teams Acoustics Teacher Relationship Specialty Start Date End Date Edwin Dupont DO [address] [place] [address] PCP - General Family Medicine 10/14/20 documented as of this encounter
--- OUTSIDE RECORDS SUMMARY | 2023-05-26 22:06 | External Medical Summary | Summary of Care ---
Author Name Unknown Organization [facility] Address [address] [facility] [place] [address] Phone [phone] Care Team Providers Care Endoscope Technician Name Role Phone Edwin Dupont DO Primary Care Provider Reason for Visit * Reason Comments Return Visit Pt here for 6 mo ret urn. Discuss stress echo results from 06/2022. Encounter Details Date Type Department Care Team Description 04/17/2023 Office Visit [facility] [address] [facility] [address] [facility] [place] [address] Hypothyroidism, unspecified type*; Encounter for long-term (current) use of medications; History of radiation exposure; Hypovitaminosis D; Dyslipidemia, goal LDL below 130; Insomnia, unspecified type Allergies Active Allergy Reactions Severity Noted Date Comments Penicillins 08/02/2000 itching documented as of this encounter (statuses as of 04/17/2023) Medications Medication Sig Dispensed Refills Start Date End Date Status ASTELIN 137 MCG/SPRAY NA SOLN 2 sprays each nostril BID 1 5 12/26/2004 Active propranolol (INDERAL) 20 MG Tablet TAKE 1 TABLET TWICE A DAY NEEDED PALPITATIONS 12 09/03/2016 Active clindamycin (CLEOCIN) 150 MG CapsuleIndication s:SBE (subacute bacterial endocarditis) prophylaxis candidate 4 capsules [...] 0 Active Estring 2 MG Vaginal Ring (Estradiol)Indica tions:Postmenopau shant atrophic vaginitis change 2 months 3 Each 3 11/26/2020 Active Clindamycin HCl 300 MG Oral Capsule TAKE 2 CAPSULES BY MOUTH 1 HOUR PRIOR TO APPOINTMENT 0 08/18/2021 Active Vitamin D3 25 MCG (1000 UT) Oral Tablet Take 1 Tablet by mouth in the morning. 0 Active Levothyroxine Sodium 88 MCG Oral Tablet (Levoxyl)Indicati ons:Hypothyroidis m, unspecified type TAKE 1 TABLET BY MOUTH DAILY WITH A GLASS OF WATER 90 Tablet 1 10/28/2022 Active FLUoxetine HCl 20 MG Oral Capsule (PROzac)Indicatio ns:Adjustment disorder with depressed mood TAKE 1 CAPSULE BY MOUTH IN THE MORNING 90 Capsule 3 11/07/2022 Active LORazepam 0.5 MG Oral Tablet (Ativan)Indicatio ns:Insomnia, unspecified type Take 1 Tablet by mouth every 6 hours as needed for Insomnia. 30 Tablet 0 04/17/2023 Active Doxepin HCl 10 MG Oral Capsule (SINEquan)Indicat ions:Insomnia, unspecified type Take 1 Capsule by mouth at bedtime as needed for Insomnia. 30 Capsule 11 04/17/2023 Active Hydrocortisone Acetate 25 MG Rectal Suppository (Anusol HC) PLACE 1 SUPPOSITORY RECTALLY TWICE A DAY DIRECTED 0 08/21/2020 3 Discontinue d(Medicatio n List Clean Up) LORazepam 0.5 MG Oral Tablet (Ativan)Indicatio ns:Insomnia, unspecified type Take 1 Tablet by mouth every 6 hours as needed for Insomnia. 30 Tablet 0 10/10/2022 3 Discontinue d(Refill) documented as of this encounter (statuses as of 04/17/2023) Active Problems Problem Noted Date Somatic dysfunction [...] of National cancer institute, vol 97, no 19 apr 05, 2005 pg 8338- 7694 Greater than 25% risk of breast cancer Chronic rhinitis 06/09/2002 Hypothyroidism 06/09/2002 BENIGN NEOPLASM SKIN -Dysplastic nevi documented as of this encounter (statuses as of 04/17/2023) Resolved Problems Problem Noted Date Resolved Date H/O splenomegaly 09/17/2015 10/04/2021 Uterine leiomyoma 02/21/2005 07/12/2006 Excessive menstruation 02/21/2005 7 documented as of this encounter (statuses as of 04/17/2023) Immunizations Name Administration Dates Next Due COVID-19 mRNA, LNP-s, No Pre serve, 2-Dose Series ([employer]) 04/13/2021,08/26/2020,08/05/2020 COVID-19, LNP-s, No Preserve , Wallace-sucrose, Ages 12+ ([employer]) 11/04/2021 Covid-19, Mrna, Lnp-s, Pf, B ivalent, 30 Mcg, IM, 12 yrs and above ([employer]) 04/25/2022 HIB PRP-OMP, 3 dose (Pedvax) 09/27/2016 Meningococcal B, 2/3-Dose Se johnie (TRUMENBA) 09/13/2020,02/12/2020 Meningococcal Conjugate Vaccine 07/29/2001 Meningococcal Conjugate Vacc ine (Menactra/Menveo) 08/07/2016,08/31/2008 Pneumococcal Conjugate Vacc, 13 Valent (Prevnar) 09/27/2016 Pneumococcal Conjugate Vacci ne, 7 Valent 08/28/2007,09/08/2000 Pneumococcal Polysaccharide PPV23 (Pneumovax) 04/13/2022,08/07/2016 SEASONAL INFLUENZA, PF, 6 M & Above, IM , (FLULAVAL or FLUZONE) 04/07/2023,04/08/2022,03/19/2021,03/12,05/01/2019,05/02/2018,04/02/2017 Seasonal Influenza, Quadriva lent, No Preserve, IM 04/29/2016,04/07/2015 Seasonal Influenza, Split, I IV3, With Preserve, Inj 04/02/2014,04/16/2013,05/10/2012,03/29,06/14/2005,07/17/2001 TDAP (age 10 and older)(Boostrix) 02/10/2019 TDAP [...] got money to buy more. Never true 04/17/2023 Within the past 12 months, t he food you bought just didn't last and you didn't have money to get more. Never true 04/17/2023 Sex Assigned at Date Recorded Female 04/10/2022 7:23 PM E DT Job Start Date Occupation Industry Not on file Not on file Not on file documented as of this encounter Last Filed Vital Signs Vital Sign Reading Time Taken Comments Blood Pressure 134/74 04/17/2023 9:43 AM EDT Pulse 79 04/17/2023 9:43 AM EDT Temperature 36.4 C (97.5 F) 04/17/2023 9:43 AM ED T Respiratory Rate 16 04/17/2023 9:43 AM EDT Oxygen Saturation 97% 04/17/2023 9:43 AM EDT Inhaled Oxygen Concentration - - Weight 69.5 kg (153 lb 3 oz) 04/17/2023 9:43 AM EDT Height - - Body Mass Index 27.14 10/10/2022 11:48 AM EDT documented in this encounter Progress Notes * Edwin Dupont DO - 04/17/2023 9:45 AM EDT Images from the original note were not included. Assessment and Plan Hypothyroidism, unspecified type TSH stable Will recheck again this year Encounter for long-term (current) use of medications - CBC WITH WBC DIFFERENTIAL - HEMOGLOBIN A1C History of radiation exposure - CT CHEST WO CONTRAST Hypovitaminosis D - 25-HYDROXY VITAMIN D Dyslipidemia, goal LDL below 130 - COMPREHENSIVE METABOLIC PANEL - LIPID PANEL WITH DIRECT LDL IF TG IS HIGH Insomnia, unspecified type Will trial on doxepin instead of ativan Use PRN - LORazepam 0.5 MG Oral Tablet (Ativan); Take 1 Tablet by mouth every 6 hours as needed for Insomnia. - Doxepin HCl 10 MG Oral Capsule (SINEquan); Take 1 Capsule by mouth at bedtime as needed for Insomnia. History of Present Illness Barbara Aguilera is a 63 year old female that presents for Return Visit (Pt here for 6 mo return. Discuss stress echo results from 06/2022.) Physical Exam Vitals: 04/17/23 0943 Temp: 36.4 C (97.5 F) Pulse: 79 Resp: 16 SpO2: 97% BP: 134/74 Wrap-Up Follow Up: Return in about 1 year (around 04/17/2024). Time: Total time today was 28 minutes excluding any time spent in the performance of separately billed services. documented in this encounter Plan of Treatment Upcoming Encounters Date Type Specialty Care Team Description 04/19/2023 Immunization Pace, Covid19 Vaccine [facility] [address] [place] [address] 10/03/2023 Office Visit Dermatology Korina Acuna MD 10/24/2023 Office Visit Family Medicine Edwin Dupont DO [address] [place] [address] Scheduled Orders Name Type Priority Associated Diagnoses Orde r Schedule CT CHEST WO CONTRAST Medical Imaging Routine History of radiation exposure Ordered: 04/17/2023 CBC WITH WBC DIFFERENTIAL Lab Routine Encounter for long-term (current) use of medications Ordered: 04/17/2023 COMPREHENSIVE METABOLIC PANEL Lab Routine Dyslipidemia, goal LDL below 130 Ordered: 04/17/2023 HEMOGLOBIN A1C Lab Routine Encounter for long-term (current) use of medications Ordered: 04/17/2023 LIPID PANEL WITH DIRECT LDL IF TG IS HIGH Lab Routine Dyslipidemia, goal LDL below 130 Ordered: 04/17/2023 25-HYDROXY VITAMIN D Lab Routine Hypovitaminosis D Ordered: 04/17/2023 Scheduled Procedures Name Priority Associated Diagnoses Date/Ti me COLONOSCOPY FLEXIBLE PROXIMAL DIAGNOSTIC Recall Screen for colon cancer Health Maintenance Due Date Last Done Comments Cologuard 01/12/2005 Fecal Occult Blood Test 01/12/2005 09/09/2001 Sigmoidoscopy 01/12/2005 MENINGOCOCCAL (MENACTRA/MENVEO) (3 - Risk 2-dose series) 08/07/2021 08/07/2016, 08/31/2008, 07/29/2001 Meningitis B Vaccine (Bexsero/Trumemba) (3 of 4 - Increased Risk Trumenba 3-dose series) 09/13/2021 09/13/2020, 02/12/2020 Depression Screening 10/04/2022 10/04/2021 TSH 12/03/2022 12/03/2021, 03/2021, 04/09/2021, Additional history exists Zoster Vaccines (2 of 2) 12/05/2022 10/10/2022 COVID-19 Vaccine ( season) 2023 04/25/2022, 11/04/2021, 04/13/2021, Additional history exists Diabetes Screening 12/03/2024 12/03/2021, 0 12/03/2021, 04/09/2021, [...] Completed 12/2022, 04/08/2022, 03/19/2021, Additional history exists GARDASIL-HPV IMMUNIZATION SERIES Aged Out No longer eligible based on patient's age to complete this topic Hepatitis B Aged Out No longer eligi ble based on patient's age to complete this topic documented as of this encounter Medical Devices Not on filedocumented as of this encounter Visit Diagnoses Diagnosis Hypothyroidism, unspecified type- Primary Encounter for long-term (current) use of medications Encounter for long-term (current) use of other medications History of radiation exposure Personal history of irradiation, presenting hazards to health Hypovitaminosis D Unspecified vitamin D deficiency Dyslipidemia, goal LDL below 130 Other and unspecified hyperlipidemia Insomnia, unspecified type documented in this encounter Additional Health Concerns Infection Onset Date Last Indicated Resolved Time COVID-19 (confirmed) 11/14/2021 11/14/2021 documented as of this encounter Care Teams Endoscope Technician Relationship Specialty Start Date End Date Edwin Dupont, [address] [place] [address] PCP - General Family Medicine 10/14/20 documented as of this encounter
--- OUTSIDE RECORDS SUMMARY | 2023-05-26 22:06 | External Medical Summary | Summary of Care ---
Author Name Unknown Organization [facility] Address [address] [place] [address] Phone [phone] Care Team Providers Care Loftsman/Woman Name Role Phone Cresencio Edwin Arauzrizwan Primary Care Provider Encounter Details Date Type Department Care Team Description 04/07/2023 Immunization Ancillary [facility] [address] [place] [address] [facility] [address] [place] [address] Arrived Allergies Active Allergy Reactions Severity Noted Date Comments Penicillins 08/02/2000 itching documented as of this encounter (statuses as of 04/07/2023) Medications Medication Sig Dispensed Refills Start Date [...] as of this encounter (statuses as of 04/07/2023) Active Problems Problem Noted Date Somatic dysfunction [...] 97, no 19 apr 05, 2005 pg 0404- 5555 Greater than 25% risk of breast cancer Chronic rhinitis 06/09/2002 Hypothyroidism 06/09/2002 BENIGN NEOPLASM SKIN -Dysplastic nevi documented as of this encounter (statuses as of 04/07/2023) Resolved Problems Problem Noted Date Resolved Date H/O splenomegaly 09/17/2015 10/04/2021 Uterine leiomyoma 02/21/2005 07/12/2006 Excessive menstruation 02/21/2005 7 documented as of this encounter (statuses as of 04/07/2023) Immunizations Name Administration Dates Next Due COVID-19 mRNA, LNP-s, No Pre serve, 2-Dose Series ([employer]) 04/13/2021,08/26/2020,08/05/2020 COVID-19, LNP-s, No Preserve , Wallace-sucrose, Ages 12+ ([employer]) 11/04/2021 Covid-19, Mrna, Lnp-s, Pf, B ivalent, 30 Mcg, IM, 12 yrs and above ([employer]) 04/25/2022 HIB PRP-OMP, 3 dose (Pedvax) 09/27/2016 [...] Description 04/17/2023 Office Visit Family Medicine Edwin Dupont DO [address] [place] [address] 10/03/2023 Office Visit Dermatology Korina Acuna MD Scheduled Procedures Name Priority Associated Diagnoses Date/Ti [...] Depression Screening 10/04/2022 10/04/2021 TSH 12/03/2022 12/03/2021, 1003/2021, 04/09/2021, Additional history exists Zoster Vaccines (2 of 2) 12/05/2022 10/10/2022 COVID-19 Vaccine ( season) 2023 04/25/2022, 11/04/2021, 04/13/2021, Additional history exists Influenza Vaccine (FLU shot) (#1) 2023 04/07/2023, 04/08/2022, 03/19/2021, Additional history exists Diabetes Screening 12/03/2024 12/03/2021, [...] 11/12/2020, 10/30, 01/10/2011 Colorectal Cancer Screening 11/12/2030 GARDASIL-HPV IMMUNIZATION SERIES Aged Out No longer eligible based on patient's age to complete this topic Hepatitis B Aged Out No longer eligi ble based on patient's age to complete this topic documented as of this encounter Medical Devices Not on filedocumented as of this encounter Additional Health Concerns Infection Onset Date Last Indicated Resolved Time COVID-19 (confirmed) 11/14/2021 11/14/2021 documented as of this encounter Care Teams Loftsman/Woman Relationship Specialty Start Date End Date Edwin Dupont DO [address] [place] [address] PCP - General Family Medicine 10/14/20 documented as of this encounter
--- OUTSIDE RECORDS SUMMARY | 2023-05-26 22:06 | External Medical Summary | Summary of Care ---
Author Name Unknown Organization [facility] Address [address] [facility] [address] Phone [phone] Care Team Providers Care Molecular Physicist Name Role Phone Edwin Dupont DO Primary Care Provider Reason for Visit * Reason Comments Return Visit Pt here for 6 mo ret urn. Discuss stress echo results from 06/2022. Encounter Details Date Type Department Care Team Description 04/17/2023 Office Visit [facility] [address] [facility] [address] [facility] [place] [address] Hypothyroidism, unspecified type*; Encounter [...] 97, no 19 apr 05, 2005 pg 8485- [phone] Greater than 25% risk of breast cancer [...] mRNA, LNP-s, No Pre serve, 2-Dose Series ([employer]) 04/13/2021,08/26/2020,08/05/2020 COVID-19, LNP-s, No Preserve , Wallace-sucrose, Ages 12+ ([employer]) 11/04/2021 Covid-19, Mrna, Lnp-s, Pf, B ivalent, 30 Mcg, IM, 12 yrs and above ([employer]) 04/25/2022 HIB PRP-OMP, 3 dose (Pedvax) 09/27/2016 [...] IF TG IS HIGH Insomnia, unspecified type - LORazepam 0.5 MG Oral Tablet (Ativan); [...] Covid19 Vaccine [facility] [address] [place] [address] 10/03/2023 Office Visit Dermatology Korina Acuna MD 10/24/2023 Office Visit Family Medicine Edwin Dupont DO [address] [place] [address] Scheduled Orders Name Type Priority Associated Diagnoses [...] documented as of this encounter Care Teams Molecular Physicist Relationship Specialty Start Date End Date Edwin Dupont DO [address] [place] [address] PCP - General Family Medicine 10/14/20 documented as of this encounter
--- OUTSIDE RECORDS SUMMARY | 2023-05-26 22:06 | External Medical Summary | Summary of Care ---
Author Name Unknown Organization [facility] Address [address] [facility] [place] [address] Phone [phone] Care Team Providers Care Nurse Infection Control Name Role Phone Lauren Dupont DO Primary Care Provider Reason for Visit * Reason Comments eRx-Medication Refill Encounter Details Date Type Department Care Team Description 04/20/2023 Refill Family Practice [facility] [address] [place] [id number] Lauren Dupont DO [address] [place] [address] Hypothyroidism, unspecified type Allergies Active Allergy Reactions Severity Noted Date Comments Penicillins 08/02/2000 itching documented as of this encounter (statuses as of 04/20/2023) Medications Medication Sig Dispensed Refills Start Date End Date Status ASTELIN 137 MCG/SPRAY NA SOLN 2 sprays each nostril BID 1 5 12/26/2004 Active propranolol (INDERAL) 20 MG Tablet TAKE 1 TABLET TWICE A DAY NEEDED PALPITATIONS 12 09/03/2016 Active clindamycin (CLEOCIN) 150 MG CapsuleIndicatio ns:SBE (subacute bacterial endocarditis) prophylaxis candidate 4 capsules [...] 0 Active Estring 2 MG Vaginal Ring (Estradiol)Indic ations:Postmenop ausal atrophic vaginitis change 2 months 3 Each 3 11/26/2020 Active Clindamycin HCl 300 MG Oral Capsule TAKE 2 CAPSULES BY MOUTH 1 HOUR PRIOR TO APPOINTMENT 0 08/18/2021 Active Vitamin D3 25 MCG (1000 UT) Oral Tablet Take 1 Tablet by mouth in the morning. 0 Active FLUoxetine HCl 20 MG Oral Capsule (PROzac)Indicati ons:Adjustment disorder with depressed mood TAKE 1 CAPSULE BY MOUTH IN THE MORNING 90 Capsule 3 11/07/2022 Active LORazepam 0.5 MG Oral Tablet (Ativan)Indicati ons:Insomnia, unspecified type Take 1 Tablet by mouth every 6 hours as needed for Insomnia. 30 Tablet 0 04/17/2023 Active Doxepin HCl 10 MG Oral Capsule (SINEquan)Indica tions:Insomnia, unspecified type Take 1 Capsule by mouth at bedtime as needed for Insomnia. 30 Capsule 11 04/17/2023 Active Levothyroxine Sodium 88 MCG Oral Tablet (Levoxyl)Indicat ions:Hypothyroid ism, unspecified type TAKE 1 TABLET BY MOUTH DAILY WITH A GLASS OF WATER 90 Tablet 3 04/20/2023 Active Levothyroxine Sodium 88 MCG Oral Tablet (Levoxyl)Indicat ions:Hypothyroid ism, unspecified type TAKE 1 TABLET BY MOUTH DAILY WITH A GLASS OF WATER 90 Tablet 1 10/28/2022 04/20/20 23 Discontinued documented as of this encounter (statuses as of 04/20/2023) Active Problems Problem Noted Date Somatic dysfunction [...] vol 97, no apr 05, 2005 pg 1423- 1435 Greater than 25% risk of breast cancer Chronic rhinitis 06/09/2002 Hypothyroidism 06/09/2002 BENIGN NEOPLASM SKIN -Dysplastic nevi documented as of this encounter (statuses as of 04/20/2023) Resolved Problems Problem Noted Date Resolved Date H/O splenomegaly 09/17/2015 10/04/2021 Uterine leiomyoma 02/21/2005 07/12/2006 Excessive menstruation 02/21/2005 7 documented as of this encounter (statuses as of 04/20/2023) Immunizations Name Administration Dates Next Due COVID-19 mRNA, LNP-s, No Pre serve, 2-Dose Series ([employer]) 04/13/2021,08/26/2020,08/05/2020 COVID-19, LNP-s, No Preserve , Wallace-sucrose, Ages 12+ ([employer]) 11/04/2021 COVID-19, MRNA-LNP, 23-24, P F, 30 MCG/0.3 mL, 12 YRS AND ABOVE, IM ([facility] 04/19/2023 Covid-19, Mrna, Lnp-s, Pf, B ivalent, 30 Mcg, IM, 12 yrs and above ([employer]) 04/25/2022 HIB PRP-OMP, 3 dose (Pedvax) 09/27/2016 [...] on file documented as of this encounter Miscellaneous Notes * Telephone Encounter - Kenny Hernandez RPh - 04/20/2023 10:44 AM EDT Signed Prescriptions: Disp Refills Levothyroxine Sodium 88 MCG Oral Tablet (L*90 Tab*3 Sig: TAKE 1 TABLET BY MOUTH DAILY WITH A GLASS OF WATERAuthorizing Provider: LAUREN DUPONT User: KENNY HERNANDEZ documented in this encounter Plan of Treatment Upcoming Encounters Date Type Specialty Care Team Description 10/08/2023 Office Visit Dermatology Augie Loredo MD [address] [place] [place] [address] 10/24/2023 Office Visit Family Medicine Lauren Dupont DO [address] [place] [address] Scheduled Procedures Name Priority Associated Diagnoses Date/Ti [...] Zoster Vaccines (2 of 2) 12/05/2022 10/10/2022 Depression Screening 04/17/2024 04/17/2023 Diabetes Screening 12/03/2024 12/03/2021, 0 12/03/2021, 04/09/2021, Additional history exists Lipid Panel 12/03/2026 12/03/2021, 100 03/2021, 04/09/2021, Additional history exists Pneumococcal Vaccine: [...] Completed 04/19/2023, , 11/04/2021, Additional history exists GARDASIL-HPV IMMUNIZATION SERIES Aged Out No longer eligible based on patient's age to complete this topic Hepatitis B Aged Out No longer eligi ble based on patient's age to complete this topic documented as of this encounter Medical Devices Not on filedocumented as of this encounter Visit Diagnoses Diagnosis Hypothyroidism, unspecified type documented in this encounter Additional Health Concerns Infection Onset Date Last Indicated Resolved Time COVID-19 (confirmed) 11/14/2021 11/14/2021 documented as of this encounter Care Teams Nurse Infection Control Relationship Specialty Start Date End Date Lauren Dupont DO [address] [place] [address] PCP - General Family Medicine 10/14/20 documented as of this encounter
[2023-05-26] MEDS ORDERED: cefTRIAXone SODIUM 2,000 MG/50 ML BAG IV STA (22:13)
[2023-05-26] MEDS ORDERED: SODIUM CHLORIDE 0.9% 1,000 ML IV SCH (22:15)
--- NOTE | 2023-05-26 22:26 | Emergency Department Note ---
History of Present Illness General Chief complaint: Fever Stated complaint: FEVER (HX SPLENECTOMY) Time Seen by Provider: 05/26/23 22:13 History of Present Illness Maximum Pain Intensity: 2 This 63-year-old female had a splenectomy back in the 80s from Hodgkin's disease presents the ER for fever for the past 24 hours. Patient had her second shingles vaccine yesterday. She took Tylenol prior to arrival. Tmax 102. Patient complains of fever, chills, body aches and pains and a headache. Patient denies chest pain, dyspnea, abdominal pain, sore throat, cough, congestion, vomiting, diarrhea, urinary symptoms. Patient was concerned about the fever and not having a spleen so came in. Patient recently had shockwave therapy to her right foot. No signs of infection. Home Medications Medication Instructions Recorded Confirmed Type fluoxetine 20 mg capsule 20 mg PO DAILY 02/08/21 05/27/23 History lorazepam 0.5 mg tablet 0.5 mg PO DAILY PRN Anxiety 02/08/21 05/27/23 History clindamycin HCl 300 mg capsule 600 mg (2 x 300 mg) PO ONCE PRN 11/11/21 05/27/23 Rx prophylaxis #14 caps propranolol 20 mg tablet 20 mg PO TID PRN palpitations #60 03/28/22 05/27/23 Rx tabs azelastine 137 mcg (0.1 %) nasal 2 spray intranasal BID #90 mL 07/18/22 05/27/23 Rx spray aerosol Estring 2 mg (7.5 mcg/24 hour) 1 vag ring vaginal Q90D #1 ea 03/06/23 05/27/23 Rx vaginal ring (estradiol) cholecalciferol (vitamin D3) 25 25 mcg PO DAILY 05/27/23 05/27/23 History mcg (1,000 unit) tablet levothyroxine 88 mcg tablet 88 mcg PO DAILYBB 05/27/23 05/27/23 History Allergies Allergy/AdvReac Type Severity Reaction Status Date / Time Penicillins Allergy Mild RASH, Verified 05/27/23 01:09 ITCHING Past Med/Surg History Medical History COVID-19 (~12/2021) Hypothyroidism Anxiety Influenza A Hodgkin's disease "s/p radiation, in remission" Surgical History S/P rhinoplasty S/P mastectomy, bilateral S/P BSO (bilateral salpingo-oophorectomy) S/P hysterectomy supracervical hyst for fibroids S/P splenectomy Family History Other Hypertension Osteoporosis Denies family history of Ovarian cancer Breast cancer Colorectal cancer Uterine cancer Social History Smoking Status: Never smoker Do You Dip or Chew Tobacco: No; Hx Alcohol Use: Yes Hx Substance Use: No Preferred Language: Zimbabwean marital status: Current Living Situation: Spouse 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 How many Children do You have: 2 How many Children do You have Comment: son autistic - kicked out of [employer] now at home Feels Safe at Home: Yes Diet: regular Review of Systems A total of 10 systems reviewed and were otherwise negative Physical Exam Vital Signs Vital Signs - 24 hr 05/26/23 21:57 05/26/23 23:39 05/26/23 23:39 Temperature 37.4 C 37.2 C Temperature Source Oral Oral Pulse Rate 136 H 98 H Pulse Rate [Right Finger] 98 H Pulse Rhythm Regular Pulse Rhythm [Right Finger] Regular Pulse Strength [Right Finger] Normal Respiratory Rate 18 16 16 Respiratory Effort / Characteristics Non-Labored Spontaneous Respiratory Depth Normal Respiratory Pattern Regular Blood Pressure 111/61 Blood Pressure [Right Arm] 131/77 Blood Pressure Mean 77 Blood Pressure Mean [Right Arm] 95 Blood Pressure Position [Right Arm] Lying Pulse Oximetry 94 95 96 Oxygen Delivery Method Room Air Room Air Room Air Sepsis Recent Fever Within 48 Hours Yes Sepsis New/Unexplained Change in Mental Status No Sepsis Action Taken by Nursing No Action Required VITALS: Vitals are noted on the nurse's note and reviewed by myself. Vital signs stable. GENERAL: Pleasant female, in no acute distress, nondiaphoretic, well-developed well-nourished. SKIN: The skin was without rashes, erythema, edema, or bruising. There is no tenting of the skin. Capillary reflex less than 2 seconds. HEAD: Normocephalic atraumatic. EARS: External auditory canals clear, tympanic membranes pearly petersen without erythema or effusion bilaterally. EYES: Pupils equal round and reactive to light and accommodation. Conjunctivae without injection, sclerae without icterus. Extraocular movements intact. NOSE: Patent, turbinates without inflammation or discharge. No sinus tenderness. MOUTH: Mucous membranes moist. Pharynx without erythema or exudate. Uvula midline. Airway patent. Tongue does not deviate. NECK: Supple without nuchal rigidity. No lymphadenopathy. No thyromegaly. Cervical spine is nontender. No JVD. HEART: Regular rate and rhythm LUNGS: Clear to auscultation bilaterally without wheezes, rales or rhonchi. No retractions or accessory muscle use. ABDOMEN: Positive bowel sounds x 4. Normal tympanic percussion. Soft, nontender, without masses or organomegaly. Major sign negative. No guarding or rebound tenderness. No CVA tenderness MUSCULOSKELETAL: No muscle atrophy, erythema, or edema noted. NEURO: Patient was alert and oriented to person place and time. Normal sensation to light and sharp touch. No focal neurological deficits. Course Administered Medications Discontinued Medications Sodium Chloride (Nss) 1,000 mls @ 999 mls/hr IV .Q1H1M KARSTEN Stop: 05/26/23 23:15 Last Infusion: 05/26/23 23:48 Dose: Infused Documented By: Admin: 05/26/23 22:38 Dose: 999 mls/hr Documented By: VIN Ceftriaxone Sodium (Rocephin) 2,000 mg in 50 mls @ 100 mls/hr IV NOW STA Stop: 05/26/23 22:42 Last Infusion: 05/27/23 01:00 Dose: Infused Documented By: Admin: 05/27/23 00:25 Dose: 100 mls/hr Documented By: RAMOS Medical Decision Making Medical Records Attestation: I reviewed the patient's medical records. Home Medications Current Medication List: was personally reviewed by me Laboratory Data Attestation: I reviewed the patient's lab results. 05/26/23 22:40 05/26/23 22:40 Lab Results 05/26/23 05/26/23 Range/Units 22:40 23:47 WBC 15.41 H (4.8-10.8) K/ul RBC 4.94 (4.20-5.40) M/uL Hgb 14.5 (12.0-16.0) g/dl Hct 42.0 (37.0-47.0) % MCV 85.0 (80.0-100.0) fL MCH 29.4 (25.0-34.0) pg MCHC 34.5 (32.0-36.0) g/dL RDW Std Deviation 46.4 H (36.4-46.3) fL RDW Coeff of Cathy 14.8 H (11.5-14.5) % Plt Count 545 H (130-400) K/uL MPV 11.0 (9.4-12.4) fL Immature Gran % (Auto) 0.6 % Neut % (Auto) 62.1 % Lymph % (Auto) 21.5 % [place] % (Auto) 12.9 % Eos % (Auto) 2.1 % Baso % (Auto) 0.8 % Neut # (Auto) 9.57 H (1.40-6.50) K/uL Lymph # (Auto) 3.31 (1.20-3.40) K/uL [place] # (Auto) 1.99 H (0.11-0.59) K/uL Eos # (Auto) 0.32 (0.00-0.50) K/uL Baso # (Auto) 0.13 (0.00-0.20) K/uL Immature Gran # (Auto) 0.09 (0.01-0.20) K/uL PT 10.4 (9.0-12.0) Seconds INR 0.9 (0.9-1.1) APTT 30.5 (21.0-31.0) Seconds PTT Ratio 1.1 Sodium 132 L (136-145) mmol/L Potassium 3.7 (3.5-5.1) mmol/L Chloride 99 (98-107) mmol/L Carbon Dioxide 24 (21-32) mmol/L Anion Gap 9 (3-11) BUN 18 (6-23) mg/dl Creatinine 0.88 (0.6-1.2) mg/dl Est Cr Clr Drug Dosing 60.9 ml/min Est GFR ( Amer) 81.0 ml/min Est GFR (Non-Af Amer) 69.9 ml/min BUN/Creatinine Ratio 20.5 H (10-20) Glucose 117 H (70-99(Fasting)) mg/dl Lactate 1.1 (0.4-2.0) mmol/L Calcium 9.6 (8.6-10.3) mg/dl Magnesium 1.7 (1.7-2.4) mg/dl Total Bilirubin 0.3 (0.2-1.0) mg/dl Direct Bilirubin 0.0 (0-0.2) mg/dl AST 21 (13-39) U/L ALT 17 (7-52) U/L Alkaline Phosphatase 101 (34-104) U/L Troponin I High Sens 21.4 H (0-14) pg/ml Total Protein 7.7 (6.0-8.3) gm/dl Albumin 4.2 (3.4-5.0) gm/dl Procalcitonin 0.30 (0-0.5) ng/ml Urine Color Yellow Urine Appearance Clear (Clear) Urine pH 6.5 (4.5-7.5) Ur Specific [place] 1.005 (1.000-1.030) Urine Protein Negative (Negative) Urine Glucose (UA) Negative (Negative) Urine Ketones Negative (Negative) Urine Blood Negative (Negative) Urine Nitrite Negative (Negative) Urine Bilirubin Negative (Negative) Urine Urobilinogen Negative (Negative) Ur Leukocyte Esterase 2+ H (Negative) Urine WBC (Auto) 10-30 H (0-5) /hpf Urine RBC (Auto) 0-4 (0-4) /hpf U Hyaline Cast (Auto) 1-5 (0-5) /lpf U Epithel Cells (Auto) 20-30 H (0-5) /lpf Urine Bacteria (Auto) Negative (Negative) Adenovirus (PCR) Not Detected (NotDetected) B. pertussis DNA (PCR) Not Detected (NotDetected) B.parapertussis DNA PCR Not Detected (NotDetected) C. pneumoniae DNA (PCR) Not Detected (NotDetected) Coronavirus OC43 (PCR) Not Detected (NotDetected) Coronavirus HKU1 (PCR) Not Detected (NotDetected) Coronavirus 229E (PCR) Not Detected (NotDetected) SARS-CoV-2 (PCR) Not Detected (NotDetected) Coronavirus NL63 (PCR) Not Detected (NotDetected) Human Metapneumovir PCR Not Detected (NotDetected) Influenza Type A (PCR) Not Detected (NotDetected) Influenza Type B (PCR) Not Detected (NotDetected) M. pneumoniae (PCR) Not Detected (NotDetected) Parainfluenza 1 (PCR) Not Detected (NotDetected) Parainfluenza 2 (PCR) Not Detected (NotDetected) Parainfluenza 3 (PCR) Not Detected (NotDetected) Parainfluenza 4 (PCR) Not Detected (NotDetected) RSV (PCR) Not Detected (NotDetected) Entero/Rhino (PCR) Not Detected (NotDetected) Imaging Data Attestation: I personally reviewed and interpreted this imaging study as follows: MDM Narrative Prior records/ancillary studies reviewed. Triage Nursing notes reviewed. Additional history obtained from nursing. The patient's history was concerning for fever and an asplenic patient. Differential diagnosis: Etiologies such as side effect of the shingles vaccine, viral syndrome, otitis, pharyngitis, pneumonia, influenza, meningitis, urinary tract infection, sepsis, bacteremia, as well as others were entertained. Physical examination: Patient is well-appearing ER treatment provided: An order was placed for continuous cardiac monitoring. The monitor shows a rate of 60-1 40 with a sinus rhythm per my interpretation. IV fluids, Rocephin On reassessment the patient felt better. Diagnostics interpreted by me: ECG: Ordered for tachycardia EKG: Normal sinus, normal intervals, no acute ST-T wave changes. Impression sinus tachycardia rate of 100 independently interpreted by myself I think arrhythmia is unlikely. EKG shows normal sinus rhythm with no interval abnormalities such as QT prolongation or WPW. There are no findings to suggest Brugada syndrome. Cardiac monitoring in the emergency department reveals no tachycardic or bradycardic dysrhythmia. Hypertrophic cardiomyopathy was considered but there are no clear historical elements pointing toward this. EKG is not suggestive. The QRS voltage is not extremely large and there are no suggestive Q waves. The labs Independently Interpreted by myself revealed leukocytosis, negative lactic Blood cultures pending Negative urine Minimally elevated troponin. Nonischemic EKG. negative [employer] Imaging studies: Chest x-ray with no acute consolidation, pneumothorax or free air per my independent or potation Consultation: A consultation was placed with hospitalist. The case was discussed and diagnostics were reviewed. The patient was evaluated in the ER for further treatment. This appears to be consistent with asplenic fever. Patient did have a moderate white count. No obvious source of infection. This could be related to your recent second shingles vaccine though. Patient was started on antibiotics. Medicine was consulted blood cultures are pending. Patient is agreeable treatment plan of admission.. By the evaluation outlined above emergent etiologies such as otitis, pharyngitis, pneumonia, meningitis, urinary tract infection, as well as others were deemed relatively unlikely. The pt informed about the findings as listed above. All questions were answered and pleased with the treatment. The chart was completed utilizing [employer] Speech voice recognition software. Grammatical errors, random word insertions, pronoun errors, and incomplete sentences are an occassional consequence of this system due to software limitations, ambient noise, and hardware issues. Any formal questions or concerns about the content, text, or information contained within the body of this dictation should be directly addressed to the physician technical services assistant for clarification. Impression & Plan Asplenia, Fever, Leukocytosis Discharge Plan Visit Data Chief Complaint: Fever Stated Complaint: FEVER (HX SPLENECTOMY) ED Provider: Ej Cervantes ED Midlevel Provider: Omaira Larios Discharge Problem: Asplenia, Fever, Leukocytosis Patient Disposition: Admitted As Inpatient Condition: Good Forms Stand Alone Forms: [employer] Prescriptions Prescriptions: No Action clindamycin HCl 300 mg capsule 600 mg PO ONCE PRN (Reason: prophylaxis) Qty: 14 6RF Rx Instructions: Take 1 hour prior to dental procedure propranolol 20 mg tablet 20 mg PO TID PRN (Reason: palpitations) Qty: 60 6RF azelastine 137 mcg (0.1 %) aerosol,spray 2 spray intranasal BID Qty: 90 6RF Rx Instructions: 2 sprays each nostril twice daily fluoxetine 20 mg capsule 20 mg PO DAILY lorazepam 0.5 mg tablet 0.5 mg PO DAILY PRN (Reason: Anxiety) Estring 2 mg (7.5 mcg /24 hour) ring 1 vag ring vaginal Q90D Qty: 1 3RF levothyroxine 88 mcg tablet 88 mcg PO DAILYBB cholecalciferol (vitamin D3) 25 mcg (1,000 unit) Tablet 25 mcg PO DAILY Referrals Referrals: Ewdin Dupont, [Primary Care Provider] -
[2023-05-26 22:55] LABS: Basophils # (auto) 0.13 K/uL (0.00-0.20); Basophils % (auto) 0.8 %; Eosinophils # (auto) 0.32 K/uL (0.00-0.50); Eosinophils % (auto) 2.1 %; Hemoglobin 14.5 g/dl (12.0-16.0); Immature Granulocytes # (auto) 0.09 K/uL (0.01-0.20); Immature Granulocytes % (auto) 0.6 %; Lymphocytes # (auto) 3.31 K/uL (1.20-3.40); Lymphocytes % (auto) 21.5 %; Mean Corpuscular Hemoglobin 29.4 pg (25.0-34.0); Mean Corpuscular Hgb Conc 34.5 g/dL (32.0-36.0); Monocytes # (auto) 1.99 K/uL (0.11-0.59); Monocytes % (auto) 12.9 %; Neutrophils # (auto) 9.57 K/uL (1.40-6.50); Neutrophils % (auto) 62.1 %; Platelet Count 545 K/uL (130-400); RDW Coefficient of Variation 14.8 % (11.5-14.5); RDW Standard Deviation 46.4 fL (36.4-46.3); Red Blood Count 4.94 M/uL (4.20-5.40); White Blood Count 15.41 K/ul (4.8-10.8)
[2023-05-26 23:12] LABS: Albumin Level 4.2 gm/dl (3.4-5.0); BUN Creatinine Ratio 20.5 (10-20); Bilirubin,Total 0.3 mg/dl (0.2-1.0); Calcium 9.6 mg/dl (8.6-10.3); Creatinine Clr Calc Pharmacy 60.9 ml/min; Est GFR (Non-African American) 69.9 ml/min; Magnesium 1.7 mg/dl (1.7-2.4); Potassium 3.7 mmol/L (3.5-5.1); Total Protein 7.7 gm/dl (6.0-8.3)
[2023-05-26 23:20] LABS: Troponin I High Sensitivity 21.4 pg/ml (0-14)
[2023-05-26 23:26] LABS: INR 0.9 (0.9-1.1); Partial Thromboplastin Ratio 1.1; Partial Thromboplastin Time 30.5 Seconds (21.0-31.0); Prothrombin Time 10.4 Seconds (9.0-12.0)
[2023-05-27 00:04] LABS: Appearance Urine Clear (Clear); Bacteria Urine Automated Negative (Negative); Bilirubin Urine Negative (Negative); Blood Urine Negative (Negative); Color Urine Yellow; Epithelial Cell Urine Auto 20-30 /lpf (0-5); Glucose Urine UA Negative (Negative); Ketones Urine Negative (Negative); Leukocyte Esterase Urine 2+ (Negative); Nitrite Urine Negative (Negative); Protein Urine Negative (Negative); RBC Urine Automated 0-4 /hpf (0-4); Specific Gravity Urine 1.005 (1.000-1.030); Urobilinogen Urine Negative (Negative); pH Urine 6.5 (4.5-7.5)
--- NOTE | 2023-05-27 00:42 | Emergency Department Note ---
ED Visit Note I have personally evaluated this patient examined her and reviewed the pertinent labs and data. I have discussed the case with Lashell Larios the physician preschool assistant director and agree with the plan. Please refer to the PA note. This patient had the shingles vaccine yesterday and was feeling ill she then spiked a temperature 102 she has had a headache earlier but now has minimal symptoms and feels great. Her labs came back with a white count of 15, lactic acid was normal. Her initial troponin was minimally elevated and is being repeated she has no chest pain or shortness of breath. On my exam she is asymptomatic and looks great. My concern is that she is asplenic and has a fever and a white count I do think needs to be admitted/observed for IV an tibiotics .she has been given IV Rocephin and IV fluids and will be admitted to the hospitalist service .
[2023-05-27 01:02] LABS: Adenovirus PCR Not Detected (NotDetected); Bordetella parapertussis PCR Not Detected (NotDetected); Bordetella pertussis PCR Not Detected (NotDetected); Chlamydia pneumoniae PCR Not Detected (NotDetected); Coronavirus 229E PCR Not Detected (NotDetected); Coronavirus CoV-2 (COVID19)PCR Not Detected (NotDetected); Coronavirus HKU1 PCR Not Detected (NotDetected); Coronavirus NL63 PCR Not Detected (NotDetected); Coronavirus OC43PCR Not Detected (NotDetected); Human Metapneumovirus PCR Not Detected (NotDetected); Influenza A PCR Not Detected (NotDetected); Influenza B PCR Not Detected (NotDetected); Mycoplasma pneumoniae PCR Not Detected (NotDetected); Parainfluenza Virus 1 PCR Not Detected (NotDetected); Parainfluenza Virus 2 PCR Not Detected (NotDetected); Parainfluenza Virus 3 PCR Not Detected (NotDetected); Parainfluenza Virus 4 PCR Not Detected (NotDetected); Respiratory Syncytial VirusPCR Not Detected (NotDetected); Rhinovirus/Enterovirus PCR Not Detected (NotDetected)
--- NOTE | 2023-05-27 04:49 | History & Physical Report ---
Date of Service May 27, 2023 Assessment & Plan (1) Fever: Plan: 63-year-old female with past med history significant for hypothyroidism, chronic rhinitis, hypovitaminosis D, history of Hodgkin's disease in 1980, history of splenectomy for Hodgkin's disease presents with fevers after second shingles vaccines yesterday. Fever was 102 degrees. Because of splenectomy patient came to the ER. Fevers After second dose of shingles vaccine History of splenectomy Leukocytosis Possible UTI Respiratory bio fire negative Empirically started Rocephin Will follow cultures Gentle fluids Medical floor Hypothyroidism On Synthyroid DVT prophylaxis Lovenox Disposition Medical floor Full code History of Present Illness Chief Complaint: Fevers Primary Care Provider: Edwin Dupont DO 63-year-old female with past med history significant for hypothyroidism, chronic rhinitis, hypovitaminosis D, history of Hodgkin's disease in 1980, history of splenectomy for Hodgkin's disease presents with fevers after second shingles vaccines yesterday. Fever was 102 degrees. Because of splenectomy patient came to the ER. Currently resting comfortably in bed and hemodynamically stable. Denies any headache. No neck pain. No runny nose. No sore throat. No cough. No chest pain or shortness of breath. No nausea or vomiting. No abdominal pain. Normal bowel and bladder movements. Past medical history. As mentioned above Past surgical history. Colonoscopy. EGD. Laparotomy with splenectomy. Rhinoplasty. Bilateral simple mastectomy. Total abdominal hysterectomy with removal of abdominal tubes. Social history. . No smoking. Alcohol occasional wine. No drug use. Family history. Father had basal cell skin cancer. Hypertension. Mother has hypothyroidism, osteoporosis. Maternal grandfather had heart disorder. Maternal grandmother had heart disorder. Paternal grandmother had heart disorder. Allergies Allergy/AdvReac Type Severity Reaction Status Date / Time Penicillins Allergy Mild RASH, Verified 05/27/23 01:09 ITCHING Home Medications Medication Instructions Recorded Confirmed Type fluoxetine 20 mg capsule 20 mg PO DAILY 02/08/21 05/27/23 History lorazepam 0.5 mg tablet 0.5 mg PO DAILY PRN Anxiety 02/08/21 05/27/23 History clindamycin HCl 300 mg capsule 600 mg (2 x 300 mg) PO ONCE PRN 11/11/21 05/27/23 Rx prophylaxis #14 caps propranolol 20 mg tablet 20 mg PO TID PRN palpitations #60 03/28/22 05/27/23 Rx tabs azelastine 137 mcg (0.1 %) nasal 2 spray intranasal BID #90 mL 07/18/22 05/27/23 Rx spray aerosol Estring 2 mg (7.5 mcg/24 hour) 1 vag ring vaginal Q90D #1 ea 03/06/23 05/27/23 Rx vaginal ring (estradiol) cholecalciferol (vitamin D3) 25 25 mcg PO DAILY 05/27/23 05/27/23 History mcg (1,000 unit) tablet levothyroxine 88 mcg tablet 88 mcg PO DAILYBB 05/27/23 05/27/23 History Past Med/Surg History Medical History COVID-19 (~12/2021) Hypothyroidism Anxiety Influenza A Hodgkin's disease "s/p radiation, in remission" Surgical History S/P rhinoplasty S/P mastectomy, bilateral S/P BSO (bilateral salpingo-oophorectomy) S/P hysterectomy supracervical hyst for fibroids S/P splenectomy Family History Other Hypertension Osteoporosis Denies family history of Ovarian cancer Breast cancer Colorectal cancer Uterine cancer Social History Smoking Status: Never smoker Do You Dip or Chew Tobacco: No; Hx Alcohol Use: Yes Hx Substance Use: No Preferred Language: Liberian marital status: Current Living Situation: Spouse 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 ENT- oropharynx clear Neck- supple, no JVD. Lungs- clear to auscultation , no wheezing or crackles. Heart- regular rhythm; no murmur, no gallop. Abdomen- normal bowel sounds, soft, nontender, no distension. Extremities- no pretibial edema, no erythema seen. Neuro- alert, oriented x 3; PERRL, no facial palsy; no dysarthria; moves extremities. Skin- warm & dry Results & Data Results & Data Vital Signs (Past 12 Hours) Vital Signs Temp Pulse Pulse Resp BP BP Pulse Ox 05/27/23 04:00 37.5 C 92 H 15 125/68 92 05/27/23 02:50 95 H 16 100/64 94 05/27/23 00:54 97 H 05/26/23 23:39 98 H 16 96 05/26/23 23:39 37.2 C 98 H 16 131/77 95 05/26/23 21:57 37.4 C 136 H 18 111/61 94 O2 Del Method 05/27/23 04:00 Room Air 05/27/23 02:50 Room Air 05/27/23 00:54 05/26/23 23:39 Room Air 05/26/23 23:39 Room Air 05/26/23 21:57 Room Air Diagnostic Findings Laboratory Results WBC 15.41 K/ul (4.8-10.8) H 05/26/23 22:40 RBC 4.94 M/uL (4.20-5.40) 05/26/23 22:40 Hgb 14.5 g/dl (12.0-16.0) 05/26/23 22:40 Hct 42.0 % (37.0-47.0) 05/26/23 22:40 MCV 85.0 fL (80.0-100.0) 05/26/23 22:40 MCH 29.4 pg (25.0-34.0) 05/26/23 22:40 MCHC 34.5 g/dL (32.0-36.0) 05/26/23 22:40 RDW Std Deviation 46.4 fL (36.4-46.3) H 05/26/23 22:40 RDW Coeff of Cathy 14.8 % (11.5-14.5) H 05/26/23 22:40 Plt Count 545 K/uL (130-400) H 05/26/23 22:40 MPV 11.0 fL (9.4-12.4) 05/26/23 22:40 Immature Gran % (Auto) 0.6 % 05/26/23 22:40 Neut % (Auto) 62.1 % 05/26/23 22:40 Lymph % (Auto) 21.5 % 05/26/23 22:40 [place] % (Auto) 12.9 % 05/26/23 22:40 Eos % (Auto) 2.1 % 05/26/23 22:40 Baso % (Auto) 0.8 % 05/26/23 22:40 Neut # (Auto) 9.57 K/uL (1.40-6.50) H 05/26/23 22:40 Lymph # (Auto) 3.31 K/uL (1.20-3.40) 05/26/23 22:40 [place] # (Auto) 1.99 K/uL (0.11-0.59) H 05/26/23 22:40 Eos # (Auto) 0.32 K/uL (0.00-0.50) 05/26/23 22:40 Baso # (Auto) 0.13 K/uL (0.00-0.20) 05/26/23 22:40 Immature Gran # (Auto) 0.09 K/uL (0.01-0.20) 05/26/23 22:40 PT 10.4 Seconds (9.0-12.0) 05/26/23 22:40 INR 0.9 (0.9-1.1) 05/26/23 22:40 APTT 30.5 Seconds (21.0-31.0) 05/26/23 22:40 PTT Ratio 1.1 05/26/23 22:40 Sodium 132 mmol/L (136-145) L 05/26/23 22:40 Potassium 3.7 mmol/L (3.5-5.1) 05/26/23 22:40 Chloride 99 mmol/L (98-107) 05/26/23 22:40 Carbon Dioxide 24 mmol/L (21-32) 05/26/23 22:40 Anion Gap 9 (3-11) 05/26/23 22:40 BUN 18 mg/dl (6-23) 05/26/23 22:40 Creatinine 0.88 mg/dl (0.6-1.2) 05/26/23 22:40 Est Cr Clr Drug Dosing 60.9 ml/min 05/26/23 22:40 Est GFR ( Amer) 81.0 ml/min 05/26/23 22:40 Est GFR (Non-Af Amer) 69.9 ml/min 05/26/23 22:40 BUN/Creatinine Ratio 20.5 (10-20) H 05/26/23 22:40 Glucose 117 mg/dl (70-99(Fasting)) H 05/26/23 22:40 Lactate 1.1 mmol/L (0.4-2.0) 05/26/23 22:40 Calcium 9.6 mg/dl (8.6-10.3) 05/26/23 22:40 Magnesium 1.7 mg/dl (1.7-2.4) 05/26/23 22:40 Total Bilirubin 0.3 mg/dl (0.2-1.0) 05/26/23 22:40 Direct Bilirubin 0.0 mg/dl (0-0.2) 05/26/23 22:40 AST 21 U/L (13-39) 05/26/23 22:40 ALT 17 U/L (7-52) 05/26/23 22:40 Alkaline Phosphatase 101 U/L (34-104) 05/26/23 22:40 Troponin I High Sens 21.1 pg/ml (0-14) H 05/27/23 01:31 Total Protein 7.7 gm/dl (6.0-8.3) 05/26/23 22:40 Albumin 4.2 gm/dl (3.4-5.0) 05/26/23 22:40 Procalcitonin 0.30 ng/ml (0-0.5) 05/26/23 22:40 Urine Color Yellow 05/26/23 23:47 Urine Appearance Clear (Clear) 05/26/23 23:47 Urine pH 6.5 (4.5-7.5) 05/26/23 23:47 Ur Specific [place] 1.005 (1.000-1.030) 05/26/23 23:47 Urine Protein Negative (Negative) 05/26/23 23:47 Urine Glucose (UA) Negative (Negative) 05/26/23 23:47 Urine Ketones Negative (Negative) 05/26/23 23:47 Urine Blood Negative (Negative) 05/26/23 23:47 Urine Nitrite Negative (Negative) 05/26/23 23:47 Urine Bilirubin Negative (Negative) 05/26/23 23:47 Urine Urobilinogen Negative (Negative) 05/26/23 23:47 Ur Leukocyte Esterase 2+ (Negative) H 05/26/23 23:47 Urine WBC (Auto) 10-30 /hpf (0-5) H 05/26/23 23:47 Urine RBC (Auto) 0-4 /hpf (0-4) 05/26/23 23:47 U Hyaline Cast (Auto) 1-5 /lpf (0-5) 05/26/23 23:47 U Epithel Cells (Auto) 20-30 /lpf (0-5) H 05/26/23 23:47 Urine Bacteria (Auto) Negative (Negative) 05/26/23 23:47 Adenovirus (PCR) Not Detected (NotDetected) 05/26/23 23:47 B. pertussis DNA (PCR) Not Detected (NotDetected) 05/26/23 23:47 B.parapertussis DNA PCR Not Detected (NotDetected) 05/26/23 23:47 C. pneumoniae DNA (PCR) Not Detected (NotDetected) 05/26/23 23:47 Coronavirus OC43 (PCR) Not Detected (NotDetected) 05/26/23 23:47 Coronavirus HKU1 (PCR) Not Detected (NotDetected) 05/26/23 23:47 Coronavirus 229E (PCR) Not Detected (NotDetected) 05/26/23 23:47 SARS-CoV-2 (PCR) Not Detected (NotDetected) 05/26/23 23:47 Coronavirus NL63 (PCR) Not Detected (NotDetected) 05/26/23 23:47 Human Metapneumovir PCR Not Detected (NotDetected) 05/26/23 23:47 Influenza Type A (PCR) Not Detected (NotDetected) 05/26/23 23:47 Influenza Type B (PCR) Not Detected (NotDetected) 05/26/23 23:47 M. pneumoniae (PCR) Not Detected (NotDetected) 05/26/23 23:47 Parainfluenza 1 (PCR) Not Detected (NotDetected) 05/26/23 23:47 Parainfluenza 2 (PCR) Not Detected (NotDetected) 05/26/23 23:47 Parainfluenza 3 (PCR) Not Detected (NotDetected) 05/26/23 23:47 Parainfluenza 4 (PCR) Not Detected (NotDetected) 05/26/23 23:47 RSV (PCR) Not Detected (NotDetected) 05/26/23 23:47 Entero/Rhino (PCR) Not Detected (NotDetected) 05/26/23 23:47 ECG Additional Comments: ECG. Normal sinus rhythm rate of 100. No acute ST changes seen. Code Status & VTE Plan VTE Prophylaxis Plan VTE Prophylaxis will be ordered: Yes
[2023-05-27] MEDS ORDERED: POLYETHYLENE (MIRALAX) 17 GM PACK PO PRN (06:20)
[2023-05-27] MEDS ORDERED: SODIUM CHLORIDE 0.9% 1,000 ML IV SCH (06:20)
[2023-05-27] MEDS ORDERED: ACETAMINOPHEN 325 MG TAB PO PRN (06:20)
[2023-05-27] MEDS ORDERED: LORazepam 0.5 MG TAB PO PRN ×2 (06:20→19:29)
[2023-05-27] MEDS ORDERED: PROPRANOLOL HCL 20 MG TAB PO PRN (06:20)
[2023-05-27 07:08] LABS: Basophils # (auto) 0.12 K/uL (0.00-0.20); Eosinophils # (auto) 0.53 K/uL (0.00-0.50); Eosinophils % (auto) 4.4 %; Hematocrit (blood only) 42.4 % (37.0-47.0); Immature Granulocytes # (auto) 0.05 K/uL (0.01-0.20); Immature Granulocytes % (auto) 0.4 %; Lymphocytes # (auto) 3.45 K/uL (1.20-3.40); Lymphocytes % (auto) 28.4 %; Mean Corpuscular Hemoglobin 29.3 pg (25.0-34.0); Mean Corpuscular Volume 88.7 fL (80.0-100.0); Mean Platelet Volume 10.5 fL (9.4-12.4); Monocytes # (auto) 2.19 K/uL (0.11-0.59); Monocytes % (auto) 18.1 %; Neutrophils # (auto) 5.79 K/uL (1.40-6.50); Neutrophils % (auto) 47.7 %; Platelet Count 523 K/uL (130-400); RDW Standard Deviation 48.6 fL (36.4-46.3); Red Blood Count 4.78 M/uL (4.20-5.40); White Blood Count 12.13 K/ul (4.8-10.8)
[2023-05-27 07:28] LABS: BUN Creatinine Ratio 19.3 (10-20); Calcium 9.3 mg/dl (8.6-10.3); Creatinine Clr Calc Pharmacy 66.8 ml/min; Potassium 4.2 mmol/L (3.5-5.1)
--- NOTE | 2023-05-27 08:06 | Electrocardiogram Report ---
Test Reason : Blood Pressure : / mmHG Vent. Rate : 100 BPM Atrial Rate : 100 BPM P-R Int : 142 ms QRS Dur : 076 ms QT Int : 346 ms P-R-T Axes : 067 004 052 degrees QTc Int : 446 ms Normal sinus rhythm Low voltage QRS Borderline ECG When compared with ECG of 20-JAN-2005 13:42, No significant change Confirmed by Vinay Morrissey ([id number]) on 05/27/2023 8:06:05 AM Referred By: NO PCP Confirmed By:Vinay Morrissey
[2023-05-27] MEDS: CHOLECALCIFEROL 1,000 UNITS 25 MCG TAB PO SCH (09:08)
[2023-05-27] MEDS: LEVOTHYROXINE SODIUM 88 MCG TABLET PO SCH (09:08)
[2023-05-27] MEDS: ENOXAPARIN INJ 40 MG/0.4 ML SYR SQ SCH (09:09)
[2023-05-27] MEDS: FLUoxetine HCL 20 MG CAP PO SCH (09:09)
[2023-05-27] MEDS: AZELASTINE HCL 0.1% NASAL 200 SPRAYS/27,400 MCG BTL SCH ×2 (09:11→21:35)
--- NOTE | 2023-05-27 09:57 | XRay Report ---
XR chest 1V portable CLINICAL HISTORY: Sepsis TECHNIQUE: Single frontal radiograph of the chest was obtained. Comparison: Comparison is made to chest radiograph 07/31/2016 FINDINGS: No lines and tubes are seen. Calcified aortic knob is seen. The lungs are clear. No evidence of pleur al effusion or pneumothorax. IMPRESSION: No acute abnormalities and in particular no radiographic evidence of pneumonia. ACT 112: Negative or not required by law. Electronically signed by: Asif Muniz M.D. 05/27/2023 9:55 AM
--- NOTE | 2023-05-27 16:27 | Communication Note ---
Date of Service: May 27, 2023 The patient was seen and examined in medical floor. 63-year-old female was admitted with fever 24 hours following shots for shingles. Associated with h eadache and chills following Tylenol and denies any other symptoms. Has been put on ceftriaxone empirically. She has been feeling much better and full progress note will be done tomorrow. Dr Seth Emanuel
[2023-05-27] MEDS ORDERED: cefTRIAXone SODIUM 2,000 MG in DEXTROSE 5 % MINI-B 50 ML IV SCH (21:00)
[2023-05-28] MEDS: LEVOTHYROXINE SODIUM 88 MCG TABLET PO SCH (05:32)
[2023-05-28 07:30] LABS: Basophils # (auto) 0.13 K/uL (0.00-0.20); Basophils % (auto) 1.1 %; Eosinophils # (auto) 0.74 K/uL (0.00-0.50); Eosinophils % (auto) 6.1 %; Hematocrit (blood only) 41.3 % (37.0-47.0); Hemoglobin 14.1 g/dl (12.0-16.0); Immature Granulocytes # (auto) 0.03 K/uL (0.01-0.20); Immature Granulocytes % (auto) 0.2 %; Lymphocytes # (auto) 3.44 K/uL (1.20-3.40); Lymphocytes % (auto) 28.2 %; Mean Corpuscular Hgb Conc 34.1 g/dL (32.0-36.0); Mean Platelet Volume 10.8 fL (9.4-12.4); Monocytes # (auto) 2.06 K/uL (0.11-0.59); Monocytes % (auto) 16.9 %; Neutrophils % (auto) 47.5 %; Platelet Count 562 K/uL (130-400); RDW Coefficient of Variation 14.8 % (11.5-14.5); Red Blood Count 4.86 M/uL (4.20-5.40)
[2023-05-28 07:54] LABS: BUN Creatinine Ratio 20.8 (10-20); Calcium 9.7 mg/dl (8.6-10.3); Est GFR (African American) 95.2 ml/min; Est GFR (Non-African American) 82.2 ml/min
[2023-05-28] MEDS: AZELASTINE HCL 0.1% NASAL 200 SPRAYS/27,400 MCG BTL SCH (08:23)
[2023-05-28] MEDS: ENOXAPARIN INJ 40 MG/0.4 ML SYR SQ SCH (08:23)
[2023-05-28] MEDS: CHOLECALCIFEROL 1,000 UNITS 25 MCG TAB PO SCH (08:23)
[2023-05-28] MEDS: FLUoxetine HCL 20 MG CAP PO SCH (08:23)
--- NOTE | 2023-05-28 14:00 | Hospitalist Progress Note ---
Date of Service May 28, 2023 Assessment & Plan (1) Fever: Plan: 63-year-old female with past med history significant for hypothyroidism, chronic rhinitis, hypovitaminosis D, history of Hodgkin's disease in 1980, history of splenectomy for Hodgkin's disease presents with fevers after second shingles vaccines yesterday. Fever was 102 degrees. Because of splenectomy patient came to the ER. Fevers After second dose of shingles vaccine History of splenectomy Could be secondary to reaction to the vaccine Except fever no other significant symptoms Leukocytosis-likely secondary to reaction to the vaccine Possible UTI-urine culture have been negative Respiratory bio fire negative Empirically started Rocephin-we will stop antibiotic Blood cultures have been negative The patient has been feeling much better remains free of any symptoms, no more fever, no urological symptoms and no other infection Hypothyroidism On Synthyroid DVT prophylaxis Lovenox Disposition Medical floor Full code He will be discharged home this afternoon Admission and Anticipated Discharge Date Admission Date: May 27, 2023 Subjective 05/28/2023 The patient was seen and examined in medical floor She has been feeling much better and denies any symptoms No dysuria or frequency, no abdominal pain, nausea or vomiting, no fever and or chills Her cultures have been negative She will be discharged home this afternoon Review of Systems Review of Systems: All systems reviewed and are unremarkable except as noted below Physical Exam Physical Exam: Lying in bed comfortably Constitutional: well developed and well nourished; not ill appearing Eyes: PERRL, conjunctivae normal, anicteric sclerae ENMT: external ear and nose normal, oropharynx normal Neck: trachea midline, no thyromegaly Respiratory: no respiratory distress Auscultation: lungs clear to auscultation bilaterally Cardiovascular: Rate/Rhythm: regular rate and regular rhythm; not tachycardic Heart Sounds: normal S1 and normal S2; no murmur Extremities: no edema Gastrointestinal (Abdomen): Inspection/Auscultation: normal bowel sounds; abdomen not distended Percussion/Palpation: abdomen soft; abdomen nontender Musculoskeletal: No acute arthritis involving any joint Neurologic: Alert, awake and oriented x 3. No focal sensory and/or motor deficit identified Lymphatic: no cervical or axillary lymphadenopathy Results & Data Results & Data Vital Signs (Past 12 Hours) Vital Signs Temp Pulse Resp BP Pulse Ox O2 Del Method 05/28/23 08:10 36.9 C 88 16 103/66 91 Room Air Laboratory Results Short CBC 05/28/23 Range/Units 07:04 WBC 12.20 H (4.8-10.8) K/ul Hgb 14.1 (12.0-16.0) g/dl Hct 41.3 (37.0-47.0) % Plt Count 562 H (130-400) K/uL BMP 05/28/23 07:03 Sodium 138 Potassium 4.0 Chloride 104 Carbon Dioxide 27 BUN 16 Creatinine 0.77 Glucose 107 H Calcium 9.7 Medications Administered Current Inpatient Medications Acetaminophen (Acetaminophen 325 Mg Tab) 650 mg PO Q4H PRN PRN Reason: pain/fever Stop: 06/26/23 06:19 Azelastine HCl (Azelastine Hcl 0.1% Nasal 200 Sprays/27,400 Mcg Btl) 2 sprays NA BID KARSTEN Stop: 06/26/23 08:59 Last Admin: 05/28/23 08:23 Dose: 2 sprays Enoxaparin Sodium (Enoxaparin Inj 40 Mg/0.4 Ml Syr) 40 mg SQ Q24H KARSTEN Stop: 06/26/23 08:59 Last Admin: 05/28/23 08:23 Dose: Not Given Fluoxetine HCl (Fluoxetine Hcl 20 Mg Cap) 20 mg PO DAILY KARSTEN Stop: 06/26/23 08:59 Last Admin: 05/28/23 08:23 Dose: 20 mg Ceftriaxone Sodium 2,000 mg/ (Dextrose) 50 mls @ 100 mls/hr IV Q24H KARSTEN; Protocol Stop: 05/29/23 20:59 Last Infusion: 05/27/23 21:21 Dose: Infused Levothyroxine Sodium (Levothyroxine Sodium 88 Mcg Tablet) 88 mcg PO DAILYBB KARSTEN Stop: 06/26/23 06:29 Last Admin: 05/28/23 05:32 Dose: 88 mcg Lorazepam (Lorazepam 0.5 Mg Tab) 0.5 mg PO HS PRN PRN Reason: Anxiety Stop: 06/26/23 06:19 Last Admin: 05/27/23 21:20 Dose: 0.5 mg Polyethylene Glycol (Polyethylene (Miralax) 17 Gm Pack) 17 gm PO DAILY PRN PRN Reason: Constipation Stop: 06/26/23 06:19 Propranolol HCl (Propranolol Hcl 20 Mg Tab) 20 mg PO TID PRN PRN Reason: palpitations Stop: 06/26/23 06:19 Vitamin D (Cholecalciferol 1,000 Units 25 Mcg Tab) 1,000 units PO DAILY KARSTEN Stop: 06/26/23 08:59 Last Admin: 05/28/23 08:23 Dose: 1,000 units
[2023-05-28] MEDS ORDERED: cefTRIAXone SODIUM 1,000 MG in DEXTROSE 5 % MINI-B 50 ML IV ONE (16:00)
--- NOTE | 2023-05-29 09:01 | Discharge Summary ---
Date of Service May 28, 2023 Admission HPI Per Admitting Provider 63-year-old female with past med history significant for hypothyroidism, chronic rhinitis, hypovitaminosis D, history of Hodgkin's disease in 1980, history of splenectomy for Hodgkin's disease presents with fevers after second shingles vaccines yesterday. Fever was 102 degrees. Because of splenectomy patient came to the ER. Currently resting comfortably in bed and hemodynamically stable. Denies any headache. No neck pain. No runny nose. No sore throat. No cough. No chest pain or shortness of breath. No nausea or vomiting. No abdominal pain. Normal bowel and bladder movements. Past medical history. As mentioned above Past surgical history. Colonoscopy. EGD. Laparotomy with splenectomy. Rhinoplasty. Bilateral simple mastectomy. Total abdominal hysterectomy with removal of abdominal tubes. Social history. . No smoking. Alcohol occasional wine. No drug use. Family history. Father had basal cell skin cancer. Hypertension. Mother has hypothyroidism, osteoporosis. Maternal grandfather had heart disorder. Maternal grandmother had heart disorder. Paternal grandmother had heart disorder. Admission Exam Per Admitting Provider Physical Exam: General- Not in distress Head- atraumatic Eyes- PERRL. ENT- oropharynx clear Neck- supple, no JVD. Lungs- clear to auscultation , no wheezing or crackles. Heart- regular rhythm; no murmur, no gallop. Abdomen- normal bowel sounds, soft, nontender, no distension. Extremities- no pretibial edema, no erythema seen. Neuro- alert, oriented x 3; PERRL, no facial palsy; no dysarthria; moves extremities. Skin- warm & dry Principal Diagnosis Fever following shingles shot-resolved, no infections found Discharge Exam Lying in bed comfortably Constitutional well developed and well nourished; not ill appearing Eyes PERRL, conjunctivae normal, anicteric sclerae ENMT external ear and nose normal, oropharynx normal Neck trachea midline, no thyromegaly Respiratory no respiratory distress Auscultation: lungs clear to auscultation bilaterally Cardiovascular Rate/Rhythm: regular rate and regular rhythm; not tachycardic Heart Sounds: normal S1 and normal S2; no murmur Extremities: no edema Gastrointestinal (Abdomen) Inspection/Auscultation: normal bowel sounds; abdomen not distended Percussion/Palpation: abdomen soft; abdomen nontender Lymphatic no cervical or axillary lymphadenopathy Discharge Data Allergies Allergy/AdvReac Type Severity Reaction Status Date / Time Penicillins Allergy Mild RASH, Verified 05/27/23 01:09 ITCHING Consultations 05/27/23 00:12 ED Decision to Admit Stat Hospital Course (1) Fever: 63-year-old female with past med history significant for hypothyroidism, chronic rhinitis, hypovitaminosis D, history of Hodgkin's disease in 1980, history of splenectomy for Hodgkin's disease presents with fevers after second shingles vaccines yesterday. Fever was 102 degrees. Because of splenectomy patient came to the ER. Fevers After second dose of shingles vaccine History of splenectomy Could be secondary to reaction to the vaccine Except fever no other significant symptoms Leukocytosis-likely secondary to reaction to the vaccine Possible UTI-urine culture have been negative Respiratory bio fire negative Empirically started Rocephin-we will stop antibiotic Blood cultures have been negative The patient has been feeling much better remains free of any symptoms, no more fever, no urological symptoms and no other infection Hypothyroidism On Synthyroid DVT prophylaxis Lovenox Disposition Medical floor Full code He will be discharged home this afternoon Total Time Total Time Spent Total Time Spent (In Minutes): 35 minutes Discharge Plan Discharge Items Patient Disposition: Home - Self-Care Reason For Visit: FEVERS Discharge Diagnosis: Fever following shingles shot-resolved, no infections found Condition on Discharge: Good Activity: Resume your previous activity Non-emergency contact: Primary Care Provider Call non-emergency contact if: you have any medication questions and your symptoms worsen Follow-up/Referrals: Edwin Dupont DO [Primary Care Provider] - Diet: Regular Addtl Attending Provider Instructions: Please take precautions to avoid fall Try to drink more fluid Take your medications as advised Pending Studies at Discharge: No Stand-Alone Forms: My [facility] [employer], Smoking Cessation Medications and DC Order Prescriptions: Continued clindamycin HCl 300 mg capsule 600 mg PO ONCE PRN (Reason: prophylaxis) Qty: 14 6RF Rx Instructions: Take 1 hour prior to dental procedure propranolol 20 mg tablet 20 mg PO TID PRN (Reason: palpitations) Qty: 60 6RF azelastine 137 mcg (0.1 %) aerosol,spray 2 spray intranasal BID Qty: 90 6RF Rx Instructions: 2 sprays each nostril twice daily fluoxetine 20 mg capsule 20 mg PO DAILY lorazepam 0.5 mg tablet 0.5 mg PO DAILY PRN (Reason: Anxiety) Estring 2 mg (7.5 mcg /24 hour) ring 1 vag ring vaginal Q90D Qty: 1 3RF levothyroxine 88 mcg tablet 88 mcg PO DAILYBB cholecalciferol (vitamin D3) 25 mcg (1,000 unit) Tablet 25 mcg PO DAILY Discharge Orders: Discharge Order (Routine); Ordered 05/28/23 Ordered By: Yovana Emanuel Admission Data Admit Date/Time: 05/27/23 04:39 Attending Provider: Yovana Emanuel Admit Provider: Luis Jovel Primary Care Provider: Edwin Dupont Other Providers: Luis Jovel Other Interventions: Discharge Summary Assessment (RN) Last Done: 05/28/23 15:18
== END 2023-05-28 16:45 | disposition home or self-care (01) | DRG 864 ==
LOC: ED 21:53 → EDINP 05-27 04:39 → 3E 05-27 15:16

== ENCOUNTER 2024-06-12 20:59 | Inpatient (IN) ==
[2024-06-12 21:59] LABS: Appearance Urine Clear (Clear); Bacteria Urine Automated None Seen (None Seen); Bilirubin Urine Negative (Negative); Blood Urine Negative (Negative); Cast Urine Automated 0-2 /lpf (0-2); Color Urine Yellow; Epithelial Cell Urine Auto 0-2 /hpf (0-2); Glucose Urine UA Negative (Negative); Ketones Urine Negative (Negative); Leukocyte Esterase Urine 1+ (Negative); Nitrite Urine Negative (Negative); Protein Urine Trace (Negative); Specific Gravity Urine 1.022 (1.000-1.030); Urobilinogen Urine Negative (Negative); WBC Urine Automated 0-5 /hpf (0-5); pH Urine 6.5 (4.5-7.5)
[2024-06-12 22:14] LABS: Basophils # (auto) 0.03 K/uL (0.00-0.20); Basophils % (auto) 0.4 %; Eosinophils # (auto) 0.06 K/uL (0.00-0.50); Eosinophils % (auto) 0.7 %; Hematocrit (blood only) 39.8 % (37.0-47.0); Hemoglobin 13.3 g/dl (12.0-16.0); Immature Granulocytes # (auto) 0.04 K/uL (0.01-0.20); Immature Granulocytes % (auto) 0.5 %; Lymphocytes % (auto) 9.5 %; Mean Corpuscular Hemoglobin 29.5 pg (25.0-34.0); Mean Corpuscular Hgb Conc 33.4 g/dL (32.0-36.0); Mean Corpuscular Volume 88.2 fL (80.0-100.0); Mean Platelet Volume 11.8 fL (9.4-12.4); Monocytes # (auto) 0.93 K/uL (0.11-0.59); Neutrophils % (auto) 77.9 %; Platelet Count 405 K/uL (130-400); RDW Standard Deviation 48.7 fL (36.4-46.3); Red Blood Count 4.51 M/uL (4.20-5.40); White Blood Count 8.46 K/ul (4.8-10.8)
[2024-06-12 22:30] LABS: Albumin Globulin Ratio 1.4 (0.9-2); Albumin Level 3.9 gm/dl (3.4-5.0); BUN Creatinine Ratio 29.1 (10-20); Bilirubin,Total 0.6 mg/dl (0.2-1.0); Calcium 8.5 mg/dl (8.6-10.3); Creatinine Clr Calc Pharmacy 60.5 ml/min; Globulin 2.7 gm/dl (2.5-4.0); Potassium 3.6 mmol/L (3.5-5.1); Total Protein 6.6 gm/dl (6.0-8.3)
[2024-06-12 22:37] LABS: Troponin I High Sensitivity 3.9 pg/ml (0-14)
[2024-06-12 22:43] LABS: Adenovirus PCR Not Detected (NotDetected); Bordetella parapertussis PCR Not Detected (NotDetected); Bordetella pertussis PCR Not Detected (NotDetected); Chlamydia pneumoniae PCR Not Detected (NotDetected); Coronavirus 229E PCR Not Detected (NotDetected); Coronavirus CoV-2 (COVID19)PCR DETECTED (NotDetected); Coronavirus HKU1 PCR Not Detected (NotDetected); Coronavirus NL63 PCR Not Detected (NotDetected); Coronavirus OC43PCR Not Detected (NotDetected); Human Metapneumovirus PCR Not Detected (NotDetected); Influenza A PCR Not Detected (NotDetected); Influenza B PCR Not Detected (NotDetected); Mycoplasma pneumoniae PCR Not Detected (NotDetected); Parainfluenza Virus 1 PCR Not Detected (NotDetected); Parainfluenza Virus 2 PCR Not Detected (NotDetected); Parainfluenza Virus 3 PCR Not Detected (NotDetected); Parainfluenza Virus 4 PCR Not Detected (NotDetected); Respiratory Syncytial VirusPCR Not Detected (NotDetected); Rhinovirus/Enterovirus PCR Not Detected (NotDetected)
[2024-06-12] MEDS: cefTRIAXone SODIUM 2,000 MG/50 ML BAG IV STA (23:22)
--- NOTE | 2024-06-12 23:37 | Emergency Department Note ---
History of Present Illness General Chief Complaint: Fever Stated Complaint: FEVER, VOMITING, HEADACHE, Time Seen by Provider: 06/12/24 23:03 History of Present Illness Provider Complaint: + fever Onset (ago): 2 day(s) Duration: + intermittent Severity: moderate Maximum Pain Intensity: 2 Relieved By: + other (Tylenol) Exacerbated By: + nothing Able to tolerate fluids by mouth: Yes Context: + sick contacts Associated symptoms: + fever (Tmax 101), + headache, + nausea and + vomiting; no chest pain or no shortness of breath Home Medications Medication Instructions Recorded Confirmed Type fluoxetine 20 mg capsule 20 mg PO DAILY 02/08/21 06/12/24 History lorazepam 0.5 mg tablet 0.5 mg PO HS PRN Insomnia 02/08/21 06/12/24 History clindamycin HCl 300 mg capsule 600 mg (2 x 300 mg) PO ONCE PRN 11/11/21 06/12/24 Rx prophylaxis #14 caps cholecalciferol (vitamin D3) 25 25 mcg PO DAILY 05/27/23 06/12/24 History mcg (1,000 unit) tablet levothyroxine 88 mcg tablet 88 mcg PO DAILYBB 05/27/23 06/12/24 History propranolol 20 mg tablet 20 mg PO TID PRN palpitations #60 06/19/23 06/12/24 Rx tabs azelastine 137 mcg (0.1 %) nasal 2 spray intranasal BID #90 mL 10/15/23 06/12/24 Rx spray Estring 2 mg (7.5 mcg/24 hour) 1 vag ring vaginal Q90D #1 ea 03/18/24 06/12/24 Rx vaginal ring (estradiol) spironolactone 50 mg tablet mg PO 03/18/24 03/18/24 History albuterol sulfate 90 mcg/actuation 2 puff inhalation Q4 PRN WHEEZE 06/12/24 06/12/24 History aerosol inhaler finasteride 5 mg tablet 1.25 mg PO DAILY 06/12/24 06/12/24 History Allergies Allergy/AdvReac Type Severity Reaction Status Date / Time Penicillins Allergy Mild RASH, Verified 03/18/24 10:30 ITCHING Past Med/Surg History Problem List (Updated 06/12/24 @ 23:37 by Giovanni Solares MD) Elevated procalcitonin (Acute) Fever (Acute) Asplenia (Acute) COVID-19 (Acute) Leukocytosis (Acute) Fever (Acute) Asplenia (Acute) Hypothyroidism (Chronic) Chronic rhinitis (Chronic) History of radiation therapy Overweight (BMI 25.0-29.9) History of Hodgkin's disease (~1980) Medical History Early menopause Uveitis (2023) COVID-19 (~12/2021) Anxiety Influenza A Hodgkin's disease "s/p radiation, in remission" Surgical History S/P splenectomy S/P rhinoplasty S/P mastectomy, bilateral S/P BSO (bilateral salpingo-oophorectomy) S/P hysterectomy supracervical hyst for fibroids Family History Other Hypertension Osteoporosis Denies family history of Ovarian cancer Breast cancer Colorectal cancer Uterine cancer Social History Smoking Status: Never smoker Do You Dip or Chew Tobacco: No; Hx Alcohol Use: Yes Alcohol type: wine Hx Substance Use: No Preferred Language: Dominican Communication Ability: Effective Martial Arts Instructor Required: No Beliefs That Will Affect Care: None marital status: Current Living Situation: Spouse 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 How many Children do You have: 2 How many Children do You have Comment: son autistic - kicked out of [employer] school, now at home Feels Safe at Home: Yes Diet: regular Physical Exam 2 Vital Signs: Vital Signs - 24 hr 06/12/24 21:00 06/12/24 22:20 06/12/24 22:21 Temperature 36.3 C L Temperature Source Temporal Artery Sc an Pulse Rate 128 H 95 H 95 H Pulse Rate from Sp O2 Sensor 96 H Respiratory Rate 18 15 Respiratory Effort / Characteristics Non-Labored Sponta neous Respiratory Depth Normal Respiratory Patter n Regular Blood Pressure 107/64 113/57 L Blood Pressure Anamaria n 78 75 Pulse Oximetry 95 93 Oxygen Delivery Me thod Room Air Sepsis Recent Feve r Within 48 Hours Yes Sepsis New/Unexpla ined Change in Men mariano Status N/A Sepsis Action Take n by Nursing No Action Required 06/12/24 22:24 06/12/24 22:45 Temperature Temperature Source Pulse Rate 94 H 92 H Pulse Rate from Sp O2 Sensor 96 H 93 H Respiratory Rate 18 14 Respiratory Effort / Characteristics Respiratory Depth Respiratory Patter n Blood Pressure 119/58 L Blood Pressure Anamaria n 78 Pulse Oximetry 93 93 Oxygen Delivery Me thod Sepsis Recent Feve r Within 48 Hours Sepsis New/Unexpla ined Change in Men mariano Status Sepsis Action Take n by Nursing Physical Exam: Physical Exam GENERAL: She is oriented to person, place, and time. She appears well-developed and well-nourished. She does not appear distressed. HENT: Exam performed. -Head: Normocephalic and atraumatic. -Right Ear: External ear normal. No mastoid erythema -Left Ear: External ear normal. No mastoid erythema -Mouth/Throat: The oropharynx is clear and moist. No trismus in the jaw. No dental abscesses or uvula swelling. No oropharyngeal exudate or tonsillar abscesses. EYES: Conjunctivae and EOM are normal. Right eye exhibits no discharge. Left eye exhibits no discharge. No scleral icterus. NECK: Normal range of motion. Neck supple. No rigidity. No tracheal deviation and normal range of motion present. CV: Normal rate, regular rhythm, normal heart sounds and intact distal pulses. There is no peripheral edema. Palpable radial pulses bue. PULM/CHEST: Effort normal and breath sounds normal. No respiratory distress. No stridor. She has no wheezes. She has no rales. ABD: The abdomen is soft. There is no tenderness. There is no rebound, no guarding MUSC/SKEL: Normal range of motion. There is no peripheral edema, tenderness or deformity. LYMPH: No cervical adenopathy. NEURO: She is alert and oriented to person, place, and time. She has normal strength. No cranial nerve deficit or sensory deficit. Coordination and gait normal. GCS eye subscore is 4. GCS verbal subscore is 5. GCS motor subscore is 6. Cerebellar tests wnl. Course Course 2302: The patient was evaluated in room C8. A complete history and physical exam was performed Administered Medications Ceftriaxone Sodium (Rocephin) 2,000 mg in 50 mls @ 100 mls/hr IV NOW STA Stop: 06/12/24 23:40 Last Admin: 06/12/24 23:22 Dose: 100 mls/hr Documented By: KENZIE Medical Decision Making Laboratory Data Attestation: I reviewed the patient's lab results. 06/12/24 21:55 06/12/24 21:55 Lab Results 06/12/24 06/12/24 06/12/24 Range/Units 21:15 21:18 21:55 WBC 8.46 (4.8-10.8) K/ul RBC 4.51 (4.20-5.40) M/uL Hgb 13.3 (12.0-16.0) g/dl Hct 39.8 (37.0-47.0) % MCV 88.2 (80.0-100.0) fL MCH 29.5 (25.0-34.0) pg MCHC 33.4 (32.0-36.0) g/dL RDW Std Deviation 48.7 H (36.4-46.3) fL RDW Coeff of Cathy 15.0 H (11.5-14.5) % Plt Count 405 H (130-400) K/uL MPV 11.8 (9.4-12.4) fL Immature Gran % (Auto) 0.5 % Neut % (Auto) 77.9 % Lymph % (Auto) 9.5 % [place] % (Auto) 11.0 % Eos % (Auto) 0.7 % Baso % (Auto) 0.4 % Neut # (Auto) 6.60 H (1.40-6.50) K/uL Lymph # (Auto) 0.80 L (1.20-3.40) K/uL [place] # (Auto) 0.93 H (0.11-0.59) K/uL Eos # (Auto) 0.06 (0.00-0.50) K/uL Baso # (Auto) 0.03 (0.00-0.20) K/uL Immature Gran # (Auto) 0.04 (0.01-0.20) K/uL Sodium 136 (136-145) mmol/L Potassium 3.6 (3.5-5.1) mmol/L Chloride 102 (98-107) mmol/L Carbon Dioxide 27 (21-32) mmol/L Anion Gap 7 (3-11) BUN 25 H (6-23) mg/dl Creatinine 0.86 (0.6-1.2) mg/dl Est Cr Clr Drug Dosing 60.5 ml/min eGFR 75.39 BUN/Creatinine Ratio 29.1 H (10-20) Glucose 116 H (70-99(Fasting)) mg/dl Lactate 1.8 (0.4-2.0) mmol/L Calcium 8.5 L (8.6-10.3) mg/dl Total Bilirubin 0.6 (0.2-1.0) mg/dl AST 22 (13-39) U/L ALT 18 (7-52) U/L Alkaline Phosphatase 82 (34-104) U/L Troponin I High Sens 3.9 (0-14) pg/ml Total Protein 6.6 (6.0-8.3) gm/dl Albumin 3.9 (3.4-5.0) gm/dl Globulin 2.7 (2.5-4.0) gm/dl Albumin/Globulin Ratio 1.4 (0.9-2) Procalcitonin 0.87 H (0-0.5) ng/ml Urine Color Yellow Urine Appearance Clear (Clear) Urine pH 6.5 (4.5-7.5) Ur Specific [place] 1.022 (1.000-1.030) Urine Protein Trace H (Negative) Urine Glucose (UA) Negative (Negative) Urine Ketones Negative (Negative) Urine Blood Negative (Negative) Urine Nitrite Negative (Negative) Urine Bilirubin Negative (Negative) Urine Urobilinogen Negative (Negative) Ur Leukocyte Esterase 1+ H (Negative) Urine WBC (Auto) 0-5 (0-5) /hpf Urine RBC (Auto) 3-5 H (0-2) /hpf U Hyaline Cast (Auto) 0-2 (0-2) /lpf U Epithel Cells (Auto) 0-2 (0-2) /hpf Urine Bacteria (Auto) None Seen (None Seen) Adenovirus (PCR) Not Detected (NotDetected) B. pertussis DNA (PCR) Not Detected (NotDetected) B.parapertussis DNA PCR Not Detected (NotDetected) C. pneumoniae DNA (PCR) Not Detected (NotDetected) Coronavirus OC43 (PCR) Not Detected (NotDetected) Coronavirus HKU1 (PCR) Not Detected (NotDetected) Coronavirus 229E (PCR) Not Detected (NotDetected) SARS-CoV-2 (PCR) DETECTED A (NotDetected) Coronavirus NL63 (PCR) Not Detected (NotDetected) Human Metapneumovir PCR Not Detected (NotDetected) Influenza Type A (PCR) Not Detected (NotDetected) Influenza Type B (PCR) Not Detected (NotDetected) M. pneumoniae (PCR) Not Detected (NotDetected) Parainfluenza 1 (PCR) Not Detected (NotDetected) Parainfluenza 2 (PCR) Not Detected (NotDetected) Parainfluenza 3 (PCR) Not Detected (NotDetected) Parainfluenza 4 (PCR) Not Detected (NotDetected) RSV (PCR) Not Detected (NotDetected) Entero/Rhino (PCR) Not Detected (NotDetected) Imaging Data Attestation: I personally reviewed and interpreted this imaging study as follows: My Impression: Chest x-ray negative. Airway clear. No pneumothorax. No consolidation. No cardiomegaly or cephalization.. No free air under the diaphragm. No fractures of the skeletal structures. MDM Narrative Cardiac monitoring: An order was placed for continuous cardiac monitoring. The monitor shows a rate of 90 with sinus rhythm interpreted by me Patient was seen during a time of extreme volume and extreme acuity in the emergency department. Nursing triage protocols were initiated and labs were drawn by protocol in the triage area. Labs are unremarkable with the exception of a mildly elevated procalcitonin level of 0.87. Patient is COVID-positive. Chest x-ray negative. Given the patient's mildly elevated procalcitonin, her history of asplenia, and her reported fever, patient would be treated with Rocephin [facility] Blood cultures are pending. Impression & Plan COVID-19, Asplenia, Fever, Elevated procalcitonin Discharge Plan Visit Data Chief Complaint: Fever Stated Complaint: FEVER, VOMITING, HEADACHE, ED Provider: Giovanni Solares Discharge Problem: COVID-19, Asplenia, Fever, Elevated procalcitonin Patient Disposition: Admitted As Inpatient Forms Stand Alone Forms: My [facility] Prescriptions Prescriptions: No Action clindamycin HCl 300 mg capsule 600 mg PO ONCE PRN (Reason: prophylaxis) Qty: 14 6RF Rx Instructions: Take 1 hour prior to dental procedure propranolol 20 mg tablet 20 mg PO TID PRN (Reason: palpitations) Qty: 60 6RF azelastine 137 mcg (0.1 %) aerosol,spray 2 spray intranasal BID Qty: 90 12RF Rx Instructions: 2 sprays each nostril twice daily fluoxetine 20 mg capsule 20 mg PO DAILY lorazepam 0.5 mg tablet 0.5 mg PO HS PRN (Reason: Insomnia) spironolactone 50 mg tablet PO Estring 2 mg (7.5 mcg /24 hour) ring 1 vag ring vaginal Q90D Qty: 1 3RF levothyroxine 88 mcg tablet 88 mcg PO DAILYBB cholecalciferol (vitamin D3) 25 mcg (1,000 unit) Tablet 25 mcg PO DAILY finasteride 5 mg tablet 1.25 mg PO DAILY Rx Instructions: 1/4 TABLET DOSE albuterol sulfate 90 mcg/actuation HFA aerosol inhaler 2 puff INHALATION Q4 PRN (Reason: WHEEZE) Referrals Referrals: Edwin Dupont DO [Primary Care Provider] -
--- NOTE | 2024-06-12 23:59 | History & Physical Report ---
Date of Service June 12, 2024 Assessment & Plan (1) Sepsis: Plan: Possible sepsis from bacterial source given elevated procalcitonin SIRS criteria met, temperature elevation at home plus tachycardia on arrival at the ER Immunocompromised patient given asplenia COVID-19 illness ? Complicated UTI valvular heart disease (mild AR/TR, TTE 2021) Hodgkin's disease status post splenectomy status post radiation status post prophylactic bilateral mastectomy, cured as per remote outpatient [facility]ology note from 2013 hypothyroidism, euthyroid as of recent outpatient TSH Hyperglycemia rule out DM Admit to medical CS, Ceftriaxone CT abdomen pelvis Check hemoglobin A1c DVT prophylaxis per Lovenox subcu Full code Text document was generated using [employer] voice recognition software. It may contain grammatical or spelling errors. Kindly contact undersigned for clarification of any documentation item in question. History of Present Illness Chief Complaint: Fever, chills Primary Care Provider: Edwin Dupont DO History obtained from patient and records. Medical history significant for valvular heart disease (mild AR/TR, TTE 2021), Hodgkin's disease status post splenectomy status post radiation status post prophylactic bilateral mastectomy, hypothyroidism. Last confinement May 2023 for fever following shingles vaccination. Patient woke up early this morning not feeling well. Fever, chills, later followed by achy headache, upper abdominal pain, nausea, vomiting symptoms. Denies chest pain, cough, SOB. Denies diarrhea/dysuria symptoms. Possible sick contacts at work. Worsening symptoms later in the day. Temperature elevation of 101 at home. Patient took naproxen prior to coming to ER. IV ceftriaxone administered at the ER. 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 Allergies Allergy/AdvReac Type Severity Reaction Status Date / Time Penicillins Allergy Mild RASH, Verified 06/12/24 23:38 ITCHING Home Medications Medication Instructions Recorded Confirmed Type fluoxetine 20 mg capsule 20 mg PO DAILY 02/08/21 06/12/24 History lorazepam 0.5 mg tablet 0.5 mg PO HS PRN Insomnia 02/08/21 06/12/24 History clindamycin HCl 300 mg capsule 600 mg (2 x 300 mg) PO ONCE PRN 11/11/21 06/12/24 Rx prophylaxis #14 caps cholecalciferol (vitamin D3) 25 25 mcg PO DAILY 05/27/23 06/12/24 History mcg (1,000 unit) tablet levothyroxine 88 mcg tablet 88 mcg PO DAILYBB 05/27/23 06/12/24 History propranolol 20 mg tablet 20 mg PO TID PRN palpitations #60 06/19/23 06/12/24 Rx tabs azelastine 137 mcg (0.1 %) nasal 2 spray intranasal BID #90 mL 10/15/23 06/12/24 Rx spray Estring 2 mg (7.5 mcg/24 hour) 1 vag ring vaginal Q90D #1 ea 03/18/24 06/12/24 Rx vaginal ring (estradiol) albuterol sulfate 90 mcg/actuation 2 puff inhalation Q4 PRN WHEEZE 06/12/24 06/12/24 History aerosol inhaler finasteride 5 mg tablet 1.25 mg PO DAILY 06/12/24 06/12/24 History Past Med/Surg History Problem List (Updated 06/13/24 @ 06:07 by Alonzo Brown MD) Sepsis Elevated procalcitonin (Acute) Fever (Acute) Asplenia (Acute) COVID-19 (Acute) Leukocytosis (Acute) Fever (Acute) Asplenia (Acute) Hypothyroidism (Chronic) Chronic rhinitis (Chronic) History of radiation therapy Overweight (BMI 25.0-29.9) History of Hodgkin's disease (~1980) Medical History Early menopause Uveitis (2023) COVID-19 (~12/2021) Anxiety Influenza A Hodgkin's disease "s/p radiation, in remission" Surgical History S/P splenectomy S/P rhinoplasty S/P mastectomy, bilateral S/P BSO (bilateral salpingo-oophorectomy) S/P hysterectomy supracervical hyst for fibroids Family History Other Hypertension Osteoporosis Denies family history of Ovarian cancer Breast cancer Colorectal cancer Uterine cancer Social History Smoking Status: Never smoker Do You Dip or Chew Tobacco: No; Hx Alcohol Use: No Hx Substance Use: No Preferred Language: Maltese Communication Ability: Effective Process Server Required: No Beliefs That Will Affect Care: None marital status: Current Living Situation: Spouse 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 How many Children do You have: 2 How many Children do You have Comment: son autistic - kicked out of [email or web address] school, now at home Feels Safe at Home: Yes Diet: regular Assistive Devices: Glasses Review of Systems Review of Systems: As per HPI, all other systems reviewed and negative Physical Exam Physical Exam: GENERAL: Comfortable, pleasant, no respiratory distress SKIN: Normal color, warm HEENT: Bespectacled, [place] palpebral conjunctivae, no ptosis, dry buccal mucosa NECK : Supple, no tenderness CHEST : CTA, no tenderness HEART : RRR, systolic murmur ABDOMEN: Some distention, nontender EXTREMITIES : No LE swelling/tenderness, no other conspicuous deformities noted NEUROLOGIC : Coherent, no facial asymmetry, no other gross focality Results & Data Results & Data Vital Signs (Past 12 Hours) Vital Signs Temp Pulse Resp BP Pulse Ox O2 Del Method 06/12/24 22:45 92 H 14 119/58 L 93 06/12/24 22:24 94 H 18 93 06/12/24 22:21 95 H 15 113/57 L 93 06/12/24 22:20 95 H 06/12/24 21:00 36.3 C L 128 H 18 107/64 95 Room Air Laboratory Results Laboratory Results WBC 8.46 K/ul (4.8-10.8) 06/12/24 21:55 RBC 4.51 M/uL (4.20-5.40) 06/12/24 21:55 Hgb 13.3 g/dl (12.0-16.0) 06/12/24 21:55 Hct 39.8 % (37.0-47.0) 06/12/24 21:55 MCV 88.2 fL (80.0-100.0) 06/12/24 21:55 MCH 29.5 pg (25.0-34.0) 06/12/24 21:55 MCHC 33.4 g/dL (32.0-36.0) 06/12/24 21:55 RDW Std Deviation 48.7 fL (36.4-46.3) H 06/12/24 21:55 RDW Coeff of Cathy 15.0 % (11.5-14.5) H 06/12/24 21:55 Plt Count 405 K/uL (130-400) H 06/12/24 21:55 MPV 11.8 fL (9.4-12.4) 06/12/24 21:55 Immature Gran % (Auto) 0.5 % 06/12/24 21:55 Neut % (Auto) 77.9 % 06/12/24 21:55 Lymph % (Auto) 9.5 % 06/12/24 21:55 [place] % (Auto) 11.0 % 06/12/24 21:55 Eos % (Auto) 0.7 % 06/12/24 21:55 Baso % (Auto) 0.4 % 06/12/24 21:55 Neut # (Auto) 6.60 K/uL (1.40-6.50) H 06/12/24 21:55 Lymph # (Auto) 0.80 K/uL (1.20-3.40) L 06/12/24 21:55 [place] # (Auto) 0.93 K/uL (0.11-0.59) H 06/12/24 21:55 Eos # (Auto) 0.06 K/uL (0.00-0.50) 06/12/24 21:55 Baso # (Auto) 0.03 K/uL (0.00-0.20) 06/12/24 21:55 Immature Gran # (Auto) 0.04 K/uL (0.01-0.20) 06/12/24 21:55 Sodium 136 mmol/L (136-145) 06/12/24 21:55 Potassium 3.6 mmol/L (3.5-5.1) 06/12/24 21:55 Chloride 102 mmol/L (98-107) 06/12/24 21:55 Carbon Dioxide 27 mmol/L (21-32) 06/12/24 21:55 Anion Gap 7 (3-11) 06/12/24 21:55 BUN 25 mg/dl (6-23) H 06/12/24 21:55 Creatinine 0.86 mg/dl (0.6-1.2) 06/12/24 21:55 Est Cr Clr Drug Dosing 60.5 ml/min 06/12/24 21:55 eGFR 75.39 06/12/24 21:55 BUN/Creatinine Ratio 29.1 (10-20) H 06/12/24 21:55 Glucose 116 mg/dl (70-99(Fasting)) H 06/12/24 21:55 Lactate 1.8 mmol/L (0.4-2.0) 06/12/24 21:55 Calcium 8.5 mg/dl (8.6-10.3) L 06/12/24 21:55 Total Bilirubin 0.6 mg/dl (0.2-1.0) 06/12/24 21:55 AST 22 U/L (13-39) 06/12/24 21:55 ALT 18 U/L (7-52) 06/12/24 21:55 Alkaline Phosphatase 82 U/L (34-104) 06/12/24 21:55 Troponin I High Sens 3.9 pg/ml (0-14) 06/12/24 21:55 Total Protein 6.6 gm/dl (6.0-8.3) 06/12/24 21:55 Albumin 3.9 gm/dl (3.4-5.0) 06/12/24 21:55 Globulin 2.7 gm/dl (2.5-4.0) 06/12/24 21:55 Albumin/Globulin Ratio 1.4 (0.9-2) 06/12/24 21:55 Procalcitonin 0.87 ng/ml (0-0.5) H 06/12/24 21:55 Urine Color Yellow 06/12/24 21:15 Urine Appearance Clear (Clear) 06/12/24 21:15 Urine pH 6.5 (4.5-7.5) 06/12/24 21:15 Ur Specific [place] 1.022 (1.000-1.030) 06/12/24 21:15 Urine Protein Trace (Negative) H 06/12/24 21:15 Urine Glucose (UA) Negative (Negative) 06/12/24 21:15 Urine Ketones Negative (Negative) 06/12/24 21:15 Urine Blood Negative (Negative) 06/12/24 21:15 Urine Nitrite Negative (Negative) 06/12/24 21:15 Urine Bilirubin Negative (Negative) 06/12/24 21:15 Urine Urobilinogen Negative (Negative) 06/12/24 21:15 Ur Leukocyte Esterase 1+ (Negative) H 06/12/24 21:15 Urine WBC (Auto) 0-5 /hpf (0-5) 06/12/24 21:15 Urine RBC (Auto) 3-5 /hpf (0-2) H 06/12/24 21:15 U Hyaline Cast (Auto) 0-2 /lpf (0-2) 06/12/24 21:15 U Epithel Cells (Auto) 0-2 /hpf (0-2) 06/12/24 21:15 Urine Bacteria (Auto) None Seen (None Seen) 06/12/24 21:15 Adenovirus (PCR) Not Detected (NotDetected) 06/12/24 21:18 B. pertussis DNA (PCR) Not Detected (NotDetected) 06/12/24 21:18 B.parapertussis DNA PCR Not Detected (NotDetected) 06/12/24 21:18 C. pneumoniae DNA (PCR) Not Detected (NotDetected) 06/12/24 21:18 Coronavirus OC43 (PCR) Not Detected (NotDetected) 06/12/24 21:18 Coronavirus HKU1 (PCR) Not Detected (NotDetected) 06/12/24 21:18 Coronavirus 229E (PCR) Not Detected (NotDetected) 06/12/24 21:18 SARS-CoV-2 (PCR) DETECTED (NotDetected) A 06/12/24 21:18 Coronavirus NL63 (PCR) Not Detected (NotDetected) 06/12/24 21:18 Human Metapneumovir PCR Not Detected (NotDetected) 06/12/24 21:18 Influenza Type A (PCR) Not Detected (NotDetected) 06/12/24 21:18 Influenza Type B (PCR) Not Detected (NotDetected) 06/12/24 21:18 M. pneumoniae (PCR) Not Detected (NotDetected) 06/12/24 21:18 Parainfluenza 1 (PCR) Not Detected (NotDetected) 06/12/24 21:18 Parainfluenza 2 (PCR) Not Detected (NotDetected) 06/12/24 21:18 Parainfluenza 3 (PCR) Not Detected (NotDetected) 06/12/24 21:18 Parainfluenza 4 (PCR) Not Detected (NotDetected) 06/12/24 21:18 RSV (PCR) Not Detected (NotDetected) 06/12/24 21:18 Entero/Rhino (PCR) Not Detected (NotDetected) 06/12/24 21:18 Diagnostic Findings Chest x-ray as per my interpretation no congestion or infiltrate
[2024-06-13 00:27] LABS: Magnesium 1.7 mg/dl (1.7-2.4)
[2024-06-13] MEDS: SODIUM CHLORIDE 0.9% 1,000 ML IV STA (00:57)
[2024-06-13] MEDS ORDERED: ACETAMINOPHEN 325 MG TAB PO PRN (01:29)
[2024-06-13] MEDS: OPTIRAY 320 100ml IV ONE (01:39)
--- NOTE | 2024-06-13 02:48 | XRay Report ---
Exam(s): XR CXR 1 VIEW EXAM: XR Chest, 1 View CLINICAL HISTORY: fever. TECHNIQUE: Frontal view of the chest. COMPARISON: Chest 2 views dated 08/24/2023 FINDINGS: Lungs: Unremarkable. No consolidation. The pulmonary vasculature demonstrates no significant radiographic abnormality. Pleural space: Unremarkable. No pneumothorax. No large pleural effusion. Heart: Unremarkable. No cardiomegaly. Mediastinum: The mediastinal contours are stable and unremarkable. The trachea is midline. Bones/joints: Unremarkable. No acute fracture. Soft tissues: Stable postsurgical clips noted overlying the anterior chest wall bilaterally. Upper abdomen: Stable postsurgical changes in the midline and epigastrium and left upper quadrant. IMPRESSION: No acute cardiopulmonary process or significant alteration from the prior examination. Electronically signed by: Viet Alba MD 06/13/24 02:46 AM
--- NOTE | 2024-06-13 03:05 | CT Scan Report ---
EXAM: CT abd pelvis IV con only CLINICAL HISTORY: Abd pain, sepsis, pt covid +ve, spleen removed, known cyst left kidney. TECHNIQUE: Contiguous axial images were obtained from the level of the diaphragm to the pubic symphysis with the administration of 93 ml optiray 320 intravenous contrast. Coronal and sagittal reconstructions were likewise performed and indicated to increase the sensitivity for detecting clinically relevant pathology. If IV contrast material had not been administered, the likelihood of detecting abnormalities relevant to the patient's condition would have been substantially decreased. CT scan was performed according to ALARA (as low as reasonable achievable). COMPARISON: None. FINDINGS: The visualized lung bases are clear. The liver is normal in size and attenuation. No focal liver lesions are seen. There is no intra or extrahepatic biliary ductal dilatation. Hepatic vasculature is patent. The gallbladder is present. The pancreas, and adrenal glands are unremarkable. The kidneys are normal in size and attenuation. There is no hydronephrosis or perinephric fat stranding. No renal calculi or renal masses are identified. Approx. 25 x 25 mm sized cyst with wall cacification is noted in upper pole of left kidney. The ureters are normal in caliber and no ureteral calculi are seen. The bladder is normal in contour. Pelvic viscera are unremarkable. No focal or diffuse bowel wall thickening or evidence of bowel obstruction is identified. The appendix is visualized in the right lower quadrant and appears within normal limits. Abdominal and pelvic vasculature is patent. No adenopathy or fluid collections are seen. No aggressive appearing osseous lesions are identified. Multiple subcentimeter sized to mildly enlarged lymph nodes are noted at root of mesentery and along the superior mesenteric vessels. Diffuse fat stranding seen in mesentry in upper and mid abdomen. IMPRESSION: 1. Multiple subcentimeter sized to mildly enlarged lymph nodes are noted at root of mesentery and along the superior mesenteric vessels with mild adjacent fat stranding - suggestive of mesenteric adenitis/mesentric panniculitis. Advised clinical correlation and follow up. 2. A small, well-defined cyst with wall cacification is noted in upper pole of left kidney. Electronically signed by Jesse Watson 06-13-2024 03:04 AM
[2024-06-13 06:03] LABS: Basophils # (auto) 0.05 K/uL (0.00-0.20); Basophils % (auto) 0.7 %; Eosinophils # (auto) 0.09 K/uL (0.00-0.50); Eosinophils % (auto) 1.2 %; Hematocrit (blood only) 39.2 % (37.0-47.0); Hemoglobin 13.2 g/dl (12.0-16.0); Immature Granulocytes # (auto) 0.02 K/uL (0.01-0.20); Immature Granulocytes % (auto) 0.3 %; Lymphocytes # (auto) 1.84 K/uL (1.20-3.40); Lymphocytes % (auto) 24.6 %; Mean Corpuscular Hemoglobin 30.1 pg (25.0-34.0); Mean Corpuscular Hgb Conc 33.7 g/dL (32.0-36.0); Mean Corpuscular Volume 89.3 fL (80.0-100.0); Mean Platelet Volume 11.8 fL (9.4-12.4); Monocytes # (auto) 1.27 K/uL (0.11-0.59); Neutrophils % (auto) 56.2 %; Platelet Count 402 K/uL (130-400); RDW Standard Deviation 49.1 fL (36.4-46.3); Red Blood Count 4.39 M/uL (4.20-5.40); White Blood Count 7.47 K/ul (4.8-10.8)
[2024-06-13 06:09] LABS: BUN Creatinine Ratio 25.3 (10-20); Calcium 8.5 mg/dl (8.6-10.3); Creatinine Clr Calc Pharmacy 65.8 ml/min; Potassium 3.6 mmol/L (3.5-5.1)
[2024-06-13] MEDS: LEVOTHYROXINE SODIUM 88 MCG TABLET PO SCH (06:18)
[2024-06-13 07:41] LABS: Estimated Average Glucose 114 mg/dl; Hemoglobin A1C 5.6 % (4.5-5.6)
--- NOTE | 2024-06-13 08:22 | Hospitalist Progress Note ---
Date of Service June 13, 2024 Assessment & Plan (1) Sepsis due to COVID-19: (2) Mesenteric adenitis: (3) Hodgkin's disease: (4) Asplenia: (5) Hypothyroidism: Plan Patient presents with fever and a mesenteric adenitis most likely due to COVID- 19 infection. Preliminary presentation consistent with sepsis. Patient has never required oxygen here in the emergency department, however patient is high risk for severe disease due to her history of Hodgkin's disease and asplenia. Patient would be a candidate for treatment with remdesivir, discussed this with the patient. Patient is agreeable Start remdesivir Urinalysis shows no bacteria the low suspicion for urinary tract infection, procalcitonin only mildly elevated and seen very commonly with COVID infections. No evidence of other bacterial infection. Discontinue antibiotics/ceftriaxone Monitor cultures Suspect patient's symptoms are all related to COVID-19. Recommend 3-day treatment of remdesivir due to her high risk. Monitor LFTs Admission and Anticipated Discharge Date Admission Date: June 12, 2024 Subjective Patient reports feeling better. Started to have a bit of appetite. No chest pain or shortness of breath. Reports that she never required oxygen here in the ED. Physical Exam Physical Exam: Constitutional: Alert, nontoxic in appearance HEENT: Mucous membranes moist. Lungs: Clear to auscultation, decreased, no wheezes rales or rhonchi CV: S1-S2, regular Abdomen: Soft, nontender, nondistended Extremities: No significant edema Neuro: No focal deficits Psych: Cooperative, normal mood Results & Data Results & Data Vital Signs (Past 12 Hours) Vital Signs Temp Pulse Resp BP Pulse Ox Pulse Ox O2 Del Method 06/13/24 08:00 82 14 106/57 L 95 Room Air 06/13/24 06:57 84 06/13/24 06:00 82 18 106/55 L 95 06/13/24 04:05 80 18 101/53 L 95 06/13/24 04:03 82 17 101/53 L 94 06/13/24 01:40 95 06/13/24 01:30 87 16 114/59 L 93 06/13/24 01:00 89 16 122/60 93 06/13/24 00:30 90 16 128/63 94 06/12/24 23:30 93 H 18 118/65 94 06/12/24 22:45 92 H 14 119/58 L 93 06/12/24 22:24 94 H 18 93 06/12/24 22:21 95 H 15 113/57 L 93 06/12/24 22:20 95 H 06/12/24 21:00 36.3 C L 128 H 18 107/64 95 Room Air O2 Del Method O2 Flow Rate 06/13/24 08:00 06/13/24 06:57 06/13/24 06:00 06/13/24 04:05 06/13/24 04:03 06/13/24 01:40 Nasal Cannula 3 06/13/24 01:30 06/13/24 01:00 06/13/24 00:30 06/12/24 23:30 06/12/24 22:45 06/12/24 22:24 06/12/24 22:21 06/12/24 22:20 06/12/24 21:00 Diagnostic Findings Reviewed imaging, laboratory and diagnostic studies. Pertinent findings as below. WBCs 7.47 Hemoglobin 13.2 Potassium 3.6 Hemoglobin A1c 5.6% Creatinine 0.79 LFTs stable Troponins negative Urinalysis no evidence of any bacteria Respiratory viral panel positive for COVID Personally reviewed chest x-ray, no focal infiltrates Reviewed CT abdomen report some mildly enlarged lymph nodes consistent with possible mesenteric adenitis
[2024-06-13] MEDS: AZELASTINE HCL 0.1% NASAL 200 SPRAYS/27,400 MCG BTL SCH (08:44)
[2024-06-13] MEDS: ENOXAPARIN INJ 40 MG/0.4 ML SYR SQ SCH (08:45)
[2024-06-13] MEDS: FINASTERIDE 5 MG TAB PO SCH (08:45)
[2024-06-13] MEDS: FLUoxetine HCL 20 MG CAP PO SCH (08:45)
[2024-06-13] MEDS: REMDESIVIR 200 MG in SODIUM CHLORIDE 0.9% 210 ML IV STA (09:19)
[2024-06-13] MEDS: POTASSIUM CHLORIDE CRTAB 20 MEQ TABCR PO STA (09:19)
[2024-06-13] MEDS: ACETAMINOPHEN 325 MG TAB PO PRN (14:46)
[2024-06-13] MEDS: POLYETHYLENE (MIRALAX) 17 GM PACK PO SCH (16:11)
[2024-06-13] MEDS: PROMETHAZINE 6.25 MG/50.25 ML BAG IV PRN (19:20)
[2024-06-13] MEDS: LORazepam 0.5 MG TAB PO PRN (21:17)
[2024-06-13] MEDS ORDERED: cefTRIAXone SODIUM 2,000 MG/50 ML BAG IV SCH (23:00)
[2024-06-14 07:29] LABS: Hematocrit (blood only) 41.3 % (37.0-47.0); Hemoglobin 13.5 g/dl (12.0-16.0); Mean Corpuscular Hemoglobin 29.3 pg (25.0-34.0); Mean Corpuscular Hgb Conc 32.7 g/dL (32.0-36.0); Mean Corpuscular Volume 89.8 fL (80.0-100.0); Platelet Count 409 K/uL (130-400); RDW Coefficient of Variation 15.2 % (11.5-14.5); RDW Standard Deviation 49.4 fL (36.4-46.3); White Blood Count 6.66 K/ul (4.8-10.8)
[2024-06-14 08:07] LABS: BUN Creatinine Ratio 24.3 (10-20); Calcium 8.7 mg/dl (8.6-10.3); Creatinine Clr Calc Pharmacy 70.3 ml/min; Potassium 3.9 mmol/L (3.5-5.1)
[2024-06-14] MEDS: REMDESIVIR 100 MG in SODIUM CHLORIDE 0.9% 230 ML IV SCH (12:38)
[2024-06-14] MEDS ORDERED: ONDANSETRON 4 MG OD TAB PO PRN (13:15)
--- NOTE | 2024-06-14 13:18 | Hospitalist Progress Note ---
Date of Service June 14, 2024 Assessment & Plan (1) Sepsis due to COVID-19: (2) Mesenteric adenitis: (3) Hodgkin's disease: (4) Asplenia: (5) Hypothyroidism: Plan Patient with acute sepsis with GI symptoms as her main manifestations. Slowly improving Encourage patient to take fluids and do small frequent feedings. Replace some additional potassium Trial of Zofran for her nausea To complete a 3-day course of remdesivir for high risk for severe disease. Patient is doing very well. Anticipate possible discharge tomorrow if able to tolerate diet. Admission and Anticipated Discharge Date Admission Date: June 12, 2024 Subjective Patient is feeling much improved still little nauseated with meals. No shortness of breath, no cough. Reports her started with vomiting last night 2. However he did test negative for COVID Physical Exam Physical Exam: Constitutional: Alert, nontoxic, no acute distress HEENT: Mucous membranes moist. Lungs: Clear to auscultation, decreased, no wheezes rales or rhonchi CV: S1-S2, regular Abdomen: Soft, nontender, nondistended Extremities: No significant edema Neuro: No focal deficits Psych: Cooperative, normal mood Results & Data Results & Data Vital Signs (Past 12 Hours) Vital Signs Temp Pulse Resp BP Pulse Ox O2 Del Method 06/14/24 07:49 36.8 C 89 17 115/65 95 Room Air Diagnostic Findings Reviewed imaging, laboratory and diagnostic studies. Pertinent findings as below. CBC stable Potassium 3.9
--- OUTSIDE RECORDS SUMMARY | 2024-06-14 13:36 | External Medical Summary | Summary of Care ---
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 Name Role Phone Edwin Dupont DO Primary Care Provider Reason for Referral * Evaluate & Treat - Unlimited Visits (Within 3 days (urgent)) - Authorized Specialty Diagnoses / Procedures Referred By Mine richards Referred To Contact Sports Medicine / Orthopedics Diagnoses Chronic pain of right ankle Edwin Dupont DO [address] [place] [address] Phone: tel: fax: Ag Arellano DO [address] [place] [address] Phone: tel: fax: Referral ID Status Reason Start Date Expiration Date Visits Requested Visits Authorized [id number] Authorized Specialty Services Required 06/03/2024 999 [id number] Question Answer Referral Priority Within 3 days (urgent) Where should this appointment be scheduled? [facility] What body part is the patient being seen for? Foot/Ankle/Calf What condition is the patient being seen for? Sprain/Strain/Tear/Other Reason for Visit * Reason Comments Return Visit Pt here for 6 mo ret urn visit. Discuss low dose CT to r/o lung cancer, states she will pay out of pocket if she needs to. Having L ankle pain past on/off for years. Worse since hike approx 1.5 years ago. Denies swelling. Recently saw Rheumatoid/Dr. Chapman who states she has "Cervical instability", had x-rays done, wanted to refer to Orthopaedic surgeon per Adela, wants your opinion, since no neck pain present. Encounter Details Date Type Department Care Team (Late st Contact Info) Description 06/03/2024 9:40 AM EST Office Visit [facility] [address] [place] [address] Edwin Dupont, [address] [place] [id number] Hypothyroidism, unspecified type*; Insomnia, unspecified type; Cervical spine instability; Acquired hypothyroidism; Dyslipidemia, goal LDL below 130; Elevated fasting blood sugar; Chronic pain of right ankle Allergies Active Allergy Reactions Criticality Noted Date Comments Penicillins 08/02/2000 itching Zoster Vac Recomb Adjuvanted Fever 024 Elevated fever documented as of this encounter (statuses as of 06/03/2024) Medications ASTELIN 137 MCG/SPRAY NA SOLN 2 sprays each nostril BID 1 5 12/27/19 05 Active propranolol (INDERAL) 20 MG Tablet TAKE 1 TABLET TWICE A DAY NEEDED PALPITATIONS 12 09/04/19 17 Active Vitamin B 12 500 MCG Oral Tablet Take by mouth as needed. Active Polyethylene Glycol 3350 Powder Use 17 g as directed in the morning. Active Estring 2 MG Vaginal Ring (Estradiol)Mona cations:Postmen opausal atrophic vaginitis change 2 months 3 Each 3 11/27/19 21 Active Additional Information Patient taking differently: change 3 months, Reported on 06/03/2024 Clindamycin HCl 300 MG Oral Capsule Prior to dental procedures 08/18/19 22 Active Vitamin D3 25 MCG (1000 UT) Oral Tablet Take 1 Tablet by mouth in the morning. Active Doxepin HCl 10 MG Oral Capsule (SINEquan)Indic ations:Insomnia , unspecified type Take 1 Capsule by mouth at bedtime as needed for Insomnia. 30 Capsule 11 04/17/20 23 Active Naproxen Sodium 220 MG Oral Tablet (Aleve) Take 1 Tablet by mouth 2 times a day with morning and evening meals. Pt taking once daily. Active Levothyroxine Sodium 88 MCG Oral Tablet (Levoxyl)Indica tions:Hypothyro idism, unspecified type TAKE 1 TABLET BY MOUTH DAILY WITH A GLASS OF WATER 90 Tablet 2 04/15/20 24 Active FLUoxetine HCl 20 MG Oral Capsule (PROzac)Indicat ions:Adjustment disorder with depressed mood TAKE 1 CAPSULE BY MOUTH EVERY MORNING 90 Capsule 2 04/15/20 24 Active Finasteride 5 MG Oral Tablet (Proscar)Indica tions:Androgene tic alopecia Take 1/4 tab daily 25 Tablet 1 05/06/20 24 Active Ventolin HFA 108 (90 Base) MCG/ACT Inhalation Aerosol Solution Inhale 2 Puffs by mouth every 4 hours as needed for Wheezing. 18 g 3 06/03/20 24 Active LORazepam 0.5 MG Oral Tablet (Ativan)Indicat ions:Insomnia, unspecified type Take 1 Tablet by mouth at bedtime as needed for Insomnia. 30 Tablet 06/03/20 24 Active Albuterol Sulfate (VENTOLIN HFA) 108 (90 Base) MCG/ACT AERS Inhale 2 Puffs by mouth every 4 hours as needed for Wheezing. 18 g 3 02/12/20 20 024 Discontin ued(Refil l) prednisoLONE Acetate 1 % Ophthalmic Suspension (Pred Forte) Instill 1 Drop into both eyes in the morning and 1 Drop at noon and 1 Drop in the evening and 1 Drop before bedtime. 09/21/19 24 024 Discontin ued(Medic ation List Clean Up) Spironolactone 50 MG Oral Tablet (Aldactone)Mona cations:Androge netic alopecia Take 1 pill each AM for 2 weeks, then increase to 2 pills each AM and stay at that dose 180 Tablet 5 01/21/20 24 024 Discontin ued(Medic ation List Clean Up) LORazepam 0.5 MG Oral Tablet (Ativan)Indicat ions:Insomnia, unspecified type Take 1 Tablet by mouth at bedtime as needed for Insomnia. 30 Tablet 02/28/20 24 024 Discontin ued(Refil l) documented as of this encounter (statuses as of 06/03/2024) Active Problems Problem Noted Date Diagnosed Date Uveitis of both eyes 10/30/2023 Somatic dysfunction of pelvic region 10/04/2021 Hypovitaminosis D 10/04/2021 History of splenectomy 08/07/2016 SBE (subacute bacterial endocarditis) prophylaxi s candidate 12/26/2004 HODG NODUL SCLERO -IA Mantle XRT 1981 06/09/2002 Overview (03/29/2011): needs yearly CBC, platelets, ESR, BMP, TSH, mammogram, CXR for post cancer treatment surveillance. Needs pneumovax and meningitis vaccine every 5-7 years. needs yearly influenza vaccine. Cancer guidelines from www.nccn.org Http://www.nccn.org/professionals/physician_gls/PDF/hodgkins.pdf From Journal of National cancer institute, vol 97, no 19 apr 05, 2005 pg 1424- 1439 Greater than 25% risk of breast cancer Chronic rhinitis 06/09/2002 Hypothyroidism 06/09/2002 BENIGN NEOPLASM SKIN -Dysplastic nevi 06/09/2002 documented as of this encounter (statuses as of 06/03/2024) Resolved Problems Problem Noted Date Diagnosed Date Resolved Date H/O splenomegaly 09/17/2015 10/04/2021 ADVANCE DIRECTIVE INFORMATION 06/06/2006 05/05/2024 Overview (06/06/2006): Yes-advised to bring copy in to be scanned into EMR. Uterine leiomyoma 02/21/2005 07/12/2006 Excessive menstruation 02/21/200507/12 documented as of this encounter (statuses as of 06/03/2024) Immunizations Name Administration Dates Next Due COVID-19 mRNA, LNP-s, No Pre serve, 2-Dose Series ([employer]) 04/13/2021,08/26/2020,08/05/2020 COVID-19, LNP-s, No Preserve , Wallace-sucrose, Ages 12+ ([employer]) 11/04/2021 COVID-19, MRNA-LNP, PF, 30 M CG/0.3 mL, 12 YRS AND ABOVE, IM ([employer]) 04/19/2023 Covid-19, Mrna, Lnp-s, Pf, B ivalent, 30 Mcg, IM, 12 yrs and above ([employer]) 04/25/2022 HEPATITIS B VACCINE, RECOMB, 20 MCG/ML, ADULT (HEPLISAV-B) 03/31/2024,02/28/2024 HIB PRP-OMP, 3 dose (Pedvax) 09/27/2016 Meningococcal B, 2/3-Dose Se johnie (TRUMENBA) 09/13/2020,02/12/2020 Meningococcal Conjugate Vacc ine (Menactra/Menveo) 08/07/2016,08/31/2008 Meningococcal MCV4O Conjugat e Vaccine (Menveo) 10/24/2023 PPD 02/28/2024 Pneumococcal Conjugate Vacc, 13 Valent (Prevnar) 09/27/2016 Pneumococcal Conjugate Vacci ne, 7 Valent 08/28/2007 Pneumococcal Polysaccharide PPV23 (Pneumovax) 04/13/2022,08/07/2016 Seasonal Influenza Vac., MDV , IM, 0.5 mL (Fluzone) 04/02/2014,04/16/2013,05/10/2012,03/29 Seasonal Influenza, PF, 6 M & above, IM , (FluLaval or Fluzone) 04/07/2023,04/08/2022,03/19/2021,03/12,05/01/2019,05/02/2018,04/02/2017 Seasonal Influenza, Quadriva lent, No Preserve, IM 04/29/2016,04/07/2015 Seasonal Influenza, Trivalen t, (IIV3), PF, (Fluzone) 04/26/2024 TDAP (age 10 and older)(Boostrix) 02/10/2019 TDAP, Age 7 and older, IM (Adacel) 01/29/2008 Zoster Vaccine Recombinant (Shingrix) 05/25/2023 ,10/10/2022 documented as of this encounter Social History Tobacco Use Types Packs/Day Years Used Date Smoking Tobacco: Never Passive Smoke Exposure: Never Smokeless Tobacco: Never Tobacco Cessation:Counseling Given: Not Answered Comments:no passive smoke Alcohol Use Standard Drinks/Week Comments Yes 0 (1 standard drink = 0.6 oz pur e alcohol) occ wine PHQ-2 Answer Date Recorded PHQ Adult Total Score 0 06/03/2024 Hunger Vital Sign Answer Date Recorded Within the past 12 months, y ou worried that your food would run out before you got the money to buy more. Never true 06/02/20 24 Within the past 12 months, t he food you bought just didn't last and you didn't have money to get more. Never true 06/02/2024 Childcare Answer Date Recorded Do you feel overwhelmed with taking care of a child, family member or friend? No 06/02/2024 Does your family need help f inding childcare? (Household - for ages 0-17 years) Not on file 06/02/2024 Clothing Answer Date Recorded Have you been unable to get clothing when it was really needed? No 06/02/2024 Is your family able to get c lothes or diapers when needed? (Household - for ages 0-17 years) Not on file 06/02/2024 Personal Safety Answer Date Recorded Do you feel unsafe or have concerns for your saf ety? No 06/02/2024 Do you have concerns for you r family's safety? (Household - for ages 0-17 years) Not on file 06/02/2024 Utilities Answer Date Recorded Do you have trouble paying y our heating, water, or electric bill? No 06/02/2024 Is your family able to pay t he heat, water, or electric bill? (Household - for ages 0-17 years) Not on file 06/02/2024 Does your family have access to good internet? (Household - for ages 0-17 years) Not on file 06/02/2024 Employment Status Answer Date Recorded Are you unemployed or without regular income? No 06/02/2024 Does the household have a re lar source of income? (Household - for ages 0-17 years) Not on file 06/02/2024 Social Connections Answer Date Recorded How often do you feel lonely or isolated from th ose around you? Rarely 06/02/2024 Financial Resource Strain Answer Date R ecorded Do you have any trouble payi ng for your medications, or do you think you might in the future? No 06/02/2024 Does your family have troubl e paying for medicine? (Household - for ages 0-17 years) Not on file 06/02/2024 Transportation Needs Answer Date Record ed Do you have trouble getting a ride to medical visits or work? (Adult - for ages 18 years and over) Not on file 06/02/2024 Does your family have a hard time getting a ride to doctors visits? (Household - for ages 0-17 years) Not on file 06/02/2024 Has lack of transportation k ept you from medical appointments, meetings, work, or from getting things needed for daily living? Check all that apply. No 06/02/2024 Do you (or your family) have trouble finding or paying for a ride (transportation)? (Household - for ages 0-17 years) Not on file 06/02/2024 Housing Stability Answer Date Recorded Do you currently live in a s helter or have no steady place to sleep at night? No 06/02/2024 Do you think you are at risk of becoming homeless? (Adult - for ages 18 years and over) Not on file 06/02/2024 Does your family worry about paying for your home or becoming homeless? (Household - for ages 0-17 years) Not on file 1 08/03/2023 Are you homeless or worried that you might be in the future? No 06/02/2024 Are you (or your family) gavi eless or worried that you might be in the future? (Household - for ages 0-17 years) Not on file Food Insecurity Answer Date Recorded Do you need food for this week? No 06/02/2024 Are you able to get enough f ood for your family? (Household - for ages 0-17 years) Not on file 06/02/2024 Does your family need food t his week? (Household - for ages 0-17 years) Not on file 06/02/2024 Do you always have enough fo od for your family? 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 Assessment and Plan Assessment & Plan Cervical Spine Instability Borderline dynamic instability at C4-5 noted on imaging. No associated pain. Discussed potential risks of dynamic instability, including potential spinal cord injury. -Refer to neurosurgery for further evaluation and management. -Avoid chiropractic adjustments to the neck until further evaluation. Ankle Pain Chronic left ankle pain, possibly related to previous Linda dancing. No recent injury. Noted laxityin the joint and tightness. -Refer to sports medicine for further evaluation, including potential ultrasound imaging. -Provide ankle stability exercises for patient to perform at home. Lung Cancer Screening Patient with history of secondhand smoke exposure interested in low-dose CT screening for lung cancer. -Write prescription for low-dose CT screening for lung cancer. General Health Maintenance/Well Visit Educated the patient on routine and scheduled health maintenance items. Age appropriate preventive guidance provided to patient, to include breast (if appropriate), cervical (if appropriate, (if appropriate),colon, lipid and diabetic screening. Discussion of age appropriate generally recommended scr eening tests reviewed. Any imaging and blood testing ordered in agreement with and in shared decision making with patient. -Continue Vitamin D supplementation. -Renew prescription for Lorazepam. -DEXA scan shows mild osteopenia; encourage weight-bearing exercises. History of Present Illness Barbara Aguilera is a 64 year old female that presents for Return Visit (Pt here for 6 mo return visit. Discuss low dose CT to r/o lung cancer, states she will pay out of pocket if she needs to. HavingL ankle pain past on/off for years. Worse since hike approx 1.5 years ago. Denies swelling. Recently saw Rheumatoid/Dr. Chapman who states she has "Cervical instability", had x-rays done, wanted to refer to Orthopaedic surgeon per Adela, wants your opinion, since no neck pain present.) History of Present Illness The patient is a 64-year-old with a history of neck arthritis and osteopenia. The patient reports no pain in the neck but has noticed a limitation in the range of motion and occasional "crunching" sounds. The patient also reports issues with her left ankle, which she believes may be due to Linda dancing. The patient describes the ankle as feeling weak and sometimes painful, particularly around the lateral malleolus. The patient also mentions a history of plantar fasciitis, which was treated with shockwave therapy about a year ago with good results. 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 The patient also mentions a desire to have a lung CT scan due to a history of exposure to second-hand smoke. Physical Exam Vitals: 06/03/24 0941 Pulse: 77 SpO2: 96% BP: 122/66 Wrap-Up Time: Total time today was 33 minutes excluding any time spent in the performance of separately billed services. Text in this note was generated using an [employer] documentation service. I discussed the use of a device to record and summarize our discussion today. All persons present during the encounter consented to its use. documented in this encounter Plan of Treatment Upcoming Encounters Date Type Department Care Team (Late st Contact Info) Description 11/03/2024 1:40 PM EDT Office Visit Rheumatology [facility] [address] [place] [address] Ej Shaw MD [address] [facility] [place] [address] 11/07/2024 10:45 AM EDT Office Visit Dermatology [facility] [place] [address] [place] [address] Augie Loredo MD [address] [place] [address] 11/25/2024 9:40 AM EDT Office Visit [facility] [address] [place] [address] Edwin Dupont, [address] [place] [address] Scheduled Orders Name Type Priority Associated Diagnoses Orde r Schedule COMPREHENSIVE METABOLIC PANEL Lab Routine Dyslipidemia, goal LDL below 130 Ordered: 06/03/2024 HEMOGLOBIN A1C Lab Routine Elevated fasting blood sugar Ordered: 06/03/2024 LIPID PANEL WITH DIRECT LDL IF TG IS HIGH Lab Routine Dyslipidemia, goal LDL below 130 Ordered: 06/03/2024 TSH WITH FREE T4 IF INDICATED Lab Routine Hypothyroidism, unspecified type Ordered: 06/03/2024 Scheduled Procedures Name Priority Associated Diagnoses Date/Ti fl COLONOSCOPY FLEXIBLE PROXIMAL DIAGNOSTIC Recall Screen for colon cancer Scheduled Referrals Name Type Priority Associated Diagnoses Orde r Schedule SPORTS MEDICINE REFERRAL OP Referral Within 3 days (urgent) Chronic pain of right ankle Ordered: 06/03/2024 Health Maintenance Due Date Last Done Comments Cologuard 01/12/2005 Fecal Occult Blood Test 01/12/2005 09/09/2001 Sigmoidoscopy 01/12/2005 Meningitis B Vaccine (Bexsero/Trumemba) (3 of 4 - Increased Risk Trumenba 3-dose series) 09/13/2021 09/13/2020, 02/12/2020 COVID-19 Vaccine ( season) 2024 04/19/2023, 04/25/2022, 11/04/2021, Additional history exists TSH 11/22/2024 11/23/2023, 06/0 09/2021, 04/09/2021, Additional history exists Depression Screening 06/03/2025 06/03/2024 Diabetes Screening 11/22/2026 11/23/2023, 0 11/23/2023, 12/03/2021, Additional history exists Pneumococcal Vaccine: Pediatrics (0 to 5 Years) and At-Risk Patients (6 to 64 Years) (4 of 4 - PPSV23 or PCV20) 04/13/2027 04/13/2022, 09/27/2016, 08/07/2016 MENINGOCOCCAL (MENACTRA/MENVEO) (4 - Risk 2-dose series) 10/23/2028 10/24/2023, 08/07/2016, 08/31/2008, Additional history exists Lipid Panel 11/22/2028 11/23/2023, 09/2021, 04/09/2021, Additional history exists DTap/Tdap Vaccines (3 - Td or Tdap) 02/10/2029 02/10/2019, 01/29/2008 Colonoscopy 11/12/2030 11/12/2020, 10/30, 01/10/2011 Colorectal Cancer Screening 11/12/2030 Zoster Vaccines Completed 05/25/2023, 10/10/2022 Hepatitis B Vaccine Completed 03/31/2024, Influenza Vaccine (FLU shot) Completed , 04/07/2023, 04/08/2022, Additional history exists HPV (Gardasil) Vaccine Aged Out No lo nger eligible based on patient's age to complete this topic documented as of this encounter Medical Devices Not on filedocumented as of this encounter Visit Diagnoses Diagnosis Hypothyroidism, unspecified type- Primary Insomnia, unspecified type Cervical spine instability Unspecified musculoskeletal disorders and symptoms referable to neck Acquired hypothyroidism Unspecified hypothyroidism Dyslipidemia, goal LDL below 130 Other and unspecified hyperlipidemia Elevated fasting blood sugar Impaired fasting glucose Chronic pain of right ankle documented in this encounter Care Teams Glass Enamel Mixer Relationship Specialty Start Date End Date Edwin Dupnot DO [address] [place] [address] PCP - General Family Medicine 10/14/20 documented as of this encounter
--- OUTSIDE RECORDS SUMMARY | 2024-06-14 13:36 | External Medical Summary | Summary of Care ---
Author Name Unknown Organization [facility] Address [address] [facility] [place] [address] Phone [phone] Care Team Providers Care Residential Sales Representative Name Role Phone Lauren Dupont Primary Care Provider Reason for Visit * Reason Comments Follow Up 3 m f/u for alopecia . pt is not taking spironolactone- experienced side effects. Pt is taking topical minoxidil - undetermined if it is helping . Encounter Details Date Type Department Care Team (Late st Contact Info) Description 05/06/2024 1:30 PM EST Office Visit Dermatology [facility] [address] [facility] [place] [address] Augie Loredo MD [address] [place] [address] Androgenetic alopecia* Allergies Active Allergy Reactions Criticality Noted Date Comments Penicillins 08/02/2000 itching Zoster Vac Recomb Adjuvanted Fever 024 Elevated fever documented as of this encounter (statuses as of 05/07/2024) Medications Medication Sig Dispensed Refills Start Date End Date Status ASTELIN 137 MCG/SPRAY NA SOLN 2 sprays each nostril BID 1 5 12/26/2004 Active propranolol (INDERAL) 20 MG Tablet TAKE 1 TABLET TWICE A DAY NEEDED PALPITATIONS 12 09/03/2016 Active Albuterol Sulfate (VENTOLIN HFA) 108 (90 Base) MCG/ACT AERS Inhale 2 Puffs by mouth every 4 hours as needed for Wheezing. 18 g 3 02/12/2020 Active Vitamin B 12 500 MCG Oral Tablet Take by mouth as needed. Active Polyethylene Glycol 3350 Powder Use 17 g as directed in the morning. Active Estring 2 MG Vaginal Ring (Estradiol)Indicat ions:Postmenopausa l atrophic vaginitis change 2 months 3 Each 3 11/26/2020 Active Additional Information Patient taking differently: change 3 months, Reported on 02/28/2024 Clindamycin HCl 300 MG Oral Capsule 08/18/2021 Active Vitamin D3 25 MCG (1000 UT) Oral Tablet Take 1 Tablet by mouth in the morning. Active Doxepin HCl 10 MG Oral Capsule (SINEquan)Indicati ons:Insomnia, unspecified type Take 1 Capsule by mouth at bedtime as needed for Insomnia. 30 Capsule 11 04/17/2023 Active Naproxen Sodium 220 MG Oral Tablet (Aleve) Take 1 Tablet by mouth 2 times a day with morning and evening meals. Active prednisoLONE Acetate 1 % Ophthalmic Suspension (Pred Forte) Instill 1 Drop into both eyes in the morning and 1 Drop at noon and 1 Drop in the evening and 1 Drop before bedtime. 09/21/2023 Active Spironolactone 50 MG Oral Tablet (Aldactone)Indicat ions:Androgenetic alopecia Take 1 pill each AM for 2 weeks, then increase to 2 pills each AM and stay at that dose 180 Tablet 5 01/21/2024 Active Additional Information Patient not taking.Reported on 02/28/2024 LORazepam 0.5 MG Oral Tablet (Ativan)Indication s:Insomnia, unspecified type Take 1 Tablet by mouth at bedtime as needed for Insomnia. 30 Tablet 02/28/2024 Active Levothyroxine Sodium 88 MCG Oral Tablet (Levoxyl)Indicatio ns:Hypothyroidism, unspecified type TAKE 1 TABLET BY MOUTH DAILY WITH A GLASS OF WATER 90 Tablet 2 04/15/2024 Active FLUoxetine HCl 20 MG Oral Capsule (PROzac)Indication s:Adjustment disorder with depressed mood TAKE 1 CAPSULE BY MOUTH EVERY MORNING 90 Capsule 2 04/15/2024 Active Finasteride 5 MG Oral Tablet (Proscar)Indicatio ns:Androgenetic alopecia Take 1/4 tab daily 25 Tablet 1 05/06/2024 Active documented as of this encounter (statuses as of 05/07/2024) Active Problems Problem Noted Date Diagnosed Date [...] 97, no 19 apr 05, 2005 pg [id number] [id number] Greater than 25% risk of breast cancer Chronic rhinitis 06/09/2002 Hypothyroidism 06/09/2002 BENIGN NEOPLASM SKIN -Dysplastic nevi 06/09/2002 documented as of this encounter (statuses as of 05/07/2024) Resolved Problems Problem Noted Date Diagnosed Date Resolved Date H/O splenomegaly 09/17/2015 10/04/2021 ADVANCE DIRECTIVE INFORMATION 06/06/2006 05/05/2024 Overview: Yes-advised to bring copy in to be scanned into EMR. Uterine leiomyoma 02/21/2005 07/12/2006 Excessive menstruation 02/21/200507/12 documented as of this encounter (statuses as of 05/07/2024) Immunizations Name Administration Dates Next Due COVID-19 mRNA, LNP-s, No Pre serve, 2-Dose Series ([employer]) 04/13/2021,08/26/2020,08/05/2020 COVID-19, LNP-s, No Preserve , Wallace-sucrose, Ages 12+ ([employer]) 11/04/2021 COVID-19, MRNA-LNP, PF, 30 M CG/0.3 mL, 12 YRS AND ABOVE, IM (Retrophin-Comirnat) 04/19/2023 Covid-19, Mrna, Lnp-s, Pf, B ivalent, 30 Mcg, IM, 12 yrs and above ([employer]) 04/25/2022 HEPATITIS B VACCINE, RECOMB, 20 MCG/ML, [...] money to get more. Never true 04/17/2023 Childcare Answer Date Recorded Do you feel overwhelmed with taking care of a child, family member or friend? Yes 04/17/2023 Does your family need help f inding childcare? (Household - for ages 0-17 years) Not on file 04/17/2023 Clothing Answer Date Recorded Have you been unable to get clothing when it was really needed? No 04/17/2023 Is your family able to get c lothes or diapers when needed? (Household - for ages 0-17 years) Not on file 04/17/2023 Personal Safety Answer Date Recorded Do you feel unsafe or have concerns for your saf ety? No 04/17/2023 Do you have concerns for you r family's safety? (Household - for ages 0-17 years) Not on file 04/17/2023 Utilities Answer Date Recorded Do you have trouble paying y our heating, water, or electric bill? (Adult - for ages 18 years and over) Not on file 04/17/2024 Is your family able to pay t he heat, water, or electric bill? (Household - for ages 0-17 years) Not on file 04/17/2024 Does your family have access to good internet? (Household - for ages 0-17 years) Not on file 04/17/2024 Employment Status Answer Date Recorded Are you unemployed or without regular income? No 04/17/2023 Does the household have a re gular source of income? (Household - for ages 0-17 years) Not on file 04/17/2023 Social Connections Answer Date Recorded How often do you feel lonely or isolated from those around you? (Adult - for ages 18 years and over) Not on file 04/17/2024 Financial Resource Strain Answer Date R ecorded Do you have any trouble payi ng for your medications, or do you think you might in the future? No 04/17/2023 Does your family have troubl e paying for medicine? (Household - for ages 0-17 years) Not on file 04/17/2023 Transportation Needs Answer Date Record ed READ ONLY Do you have troubl e getting a ride to medical visits or work? Never True 04/17/2023 Does your family have a hard time getting a ride to doctors visits? (Household - for ages 0-17 years) Not on file 04/17/2023 Has lack of transportation k ept you from medical appointments, meetings, work, or from getting things needed for daily living? Check all that apply. (Adult - for ages 18 years and over) Not on file 04/17/2023 Do you (or your family) have trouble finding or paying for a ride (transportation)? (Household - for ages 0-17 years) Not on file 04/17/2023 Housing Stability Answer Date Recorded Do you currently live in a s helter or have no steady place to sleep at night? No 04/17/2023 READ ONLY Do you think you a re at risk of becoming homeless? No 04/17/2023 Does your family worry about paying for your home or becoming homeless? (Household - for ages 0-17 years) Not on file 1 Are you homeless or worried that you might be in the future? (Adult - for ages 18 years and over) Not on file Are you (or your family) gavi eless or worried that you might be in the future? (Household - for ages 0-17 years) Not on file Food Insecurity Answer Date Recorded Do you need food for this week? No 04/17/2023 Are you able to get enough f ood for your family? (Household - for ages 0-17 years) Not on file 04/17/2023 Does your family need food t his week? (Household - for ages 0-17 years) Not on file 04/17/2023 Do you always have enough fo od for your family? (Household - for ages 0-17 years) Not on file 04/17/2023 Sex and Gender Information Value Date Recorded Sex Assigned at Female 04/10/2022 7:23 PM EDT Gender Identity Female 04/10/2022 7:23 PM EDT Sexual Orientation Straight 04/10/2022 7: 23 PM EDT Job Start Date Occupation Industry Not on file Not on file Not on file documented as of this encounter Progress Notes * Augie Loredo MD - 05/06/2024 1:31 PM EST SUBJECTIVE: Chief Complaint: Chief Complaint Patient presents with Follow Up 3 m f/u for alopecia, HPI: Barbara Aguilera is a 64 year old female seen for androgenetic alopecia (pattern hair thinning) At last appointment started oral spironolactone although has now stopped due to leg cramping. Currently using topical minoxidil as well. But switched to the 5% foam from [employer]. Likes this formulation better No significant change in hair volume OBJECTIVE: GEN: Healthy, alert, no distress, appears oriented, pleasant, and cooperative SKIN: Problem focused exam reveals: Scalp with widened part, retained frontal hairline, mild bitemporal recession. No scale or erythema. Negative hair pull test ASSESSMENT/PLAN: Androgenetic alopecia (pattern) - continue topical minoxidil foam - d/c spironolactone - start finasteride 1.25mg daily. SER Augie Loredo MD REF: SELF [address] ADDRESS AVAILABLE PCP: LAUREN DUPONT [address] [place] [address] [phone] documented in this encounter Nursing Notes * Rizwana Vance MED ASSIST - 05/06/2024 1:33 PM EST Chief Complaint Patient presents with Follow Up 3 m f/u for alopecia. pt is not taking spironolactone- experienced side effects. Pt is taking topical minoxidil - undetermined if it is helping . documented in this encounter Plan of Treatment Upcoming Encounters Date Type Department Care Team (Late st Contact Info) Description 06/03/2024 9:40 AM EST Office Visit [facility] [address] [place] [address] Lauren Dupont, [address] [place] [place] [address] 11/03/2024 1:40 PM EDT Office Visit Rheumatology [place] [address] [address] [employer] [place] [address] Ej Shaw MD [facility] [employer] [place] [address] 11/07/2024 10:45 AM EDT Office Visit Dermatology [facility] [address] [place] [address] Augie Loredo MD [address] [place] [address] 11/25/2024 9:40 AM EDT Office Visit [facility] [address] [place] [address] Lauren Dupont DO [address] [place] [address] Scheduled Procedures Name Priority Associated Diagnoses Date/Ti me COLONOSCOPY FLEXIBLE PROXIMAL DIAGNOSTIC Recall Screen for colon cancer Health Maintenance Due Date Last Done Comments Cologuard 01/12/2005 Fecal Occult Blood Test 01/12/2005 09/09/2001 Sigmoidoscopy 01/12/2005 Meningitis B Vaccine (Bexsero/Trumemba) (3 of 4 - Increased Risk Trumenba 3-dose series) 09/13/2021 09/13/2020, 02/12/2020 COVID-19 Vaccine ( season) 2024 04/19/2023, 04/25/2022, 11/04/2021, Additional history exists Depression Screening 04/17/2024 04/17/2023 TSH 11/22/2024 11/23/2023, 06/0 09/2021, 04/09/2021, Additional history exists Diabetes Screening 11/22/2026 11/23/2023, 0 11/23/2023, 12/03/2021, Additional history exists Pneumococcal Vaccine: Pediatrics (0 to 5 Years) and At-Risk Patients (6 to 64 Years) (4 of 4 - PPSV23 or PCV20) 04/13/2027 04/13/2022, 09/27/2016, 08/07/2016 MENINGOCOCCAL (MENACTRA/MENVEO) (4 - Risk 2-dose series) 10/23/2028 10/24/2023, 08/07/2016, 08/31/2008, Additional history exists Lipid Panel 11/22/2028 11/23/2023, 06/0 09/2021, 04/09/2021, Additional history exists DTap/Tdap Vaccines [...] as of this encounter Visit Diagnoses Diagnosis Androgenetic alopecia- Primary Other alopecia documented in this encounter Care Teams Residential Sales Representative Relationship Specialty Start Date End Date Lauren Dupont DO [address] [address] PCP - General Family Medicine 10/14/20 documented as of this encounter
--- OUTSIDE RECORDS SUMMARY | 2024-06-14 13:36 | External Medical Summary | Summary of Care ---
Author Name Unknown Organization [facility] Address [address] [facility] [place] [address] Phone [phone] Care Team Providers Care Parachute Supervisor Name Role Phone Cresencio Edwin Arauzrizwan Primary Care Provider Encounter Details Date Type Department Care Team (Late st Contact Info) Description 04/26/2024 12:40 PM EDT Immunization Ancillary [facility] [address] [place] [address] [facility] Flu Shot Clinic [facility] Prac [address] [place] [address] Arrived Allergies Active Allergy Reactions Criticality Noted Date Comments Penicillins 08/02/2000 itching Zoster Vac Recomb Adjuvanted Fever 024 Elevated fever documented as of this encounter (statuses as of 04/26/2024) Medications Medication Sig Dispensed Refills Start Date [...] EVERY MORNING 90 Capsule 2 04/15/2024 Active documented as of this encounter (statuses as of 04/26/2024) Active Problems Problem Noted Date Diagnosed Date [...] no 19 apr 05, 2005 pg 1424- 1436 Greater than 25% risk of breast cancer Chronic rhinitis 06/09/2002 Hypothyroidism 06/09/2002 BENIGN NEOPLASM SKIN -Dysplastic nevi 06/09/2002 documented as of this encounter (statuses as of 04/26/2024) Resolved Problems Problem Noted Date Diagnosed Date Resolved Date H/O splenomegaly 09/17/2015 10/04/2021 Uterine leiomyoma 02/21/2005 07/12/2006 Excessive menstruation 02/21/200507/12 documented as of this encounter (statuses as of 04/26/2024) Immunizations Name Administration Dates Next Due COVID-19 mRNA, LNP-s, No Pre serve, 2-Dose Series ([facility]) 04/13/2021,08/26/2020,08/05/2020 COVID-19, LNP-s, No Preserve , Wallace-sucrose, Ages 12+ (Pfizer) 11/04/2021 COVID-19, MRNA-LNP, 23-24, P F, 30 MCG/0.3 mL, 12 YRS AND ABOVE, IM ([facility]) 04/19/2023 Covid-19, Mrna, Lnp-s, Pf, B ivalent, 30 Mcg, IM, 12 yrs and above ([facility]) 04/25/2022 HEPATITIS B VACCINE, RECOMB, 20 MCG/ML, [...] 04/17/2023 Does the household have a re lar [...] Description 06/03/2024 9:40 AM EST Office Visit Family Practice [facility] [address] [address] Edwin Dupont, [address] [address] 11/03/2024 1:40 PM EDT Office Visit Rheumatology [facility] [address] [place] [address] Ej Shaw MD [address] [employer] [address] [place] [address] 11/07/2024 10:45 AM EDT Office Visit Dermatology [facility] [address] [facility] [place] [address] Augie Loredo MD [address] [facility] [place] [address] 11/25/2024 9:40 AM EDT Office Visit Family Practice [facility] [address] [place] [address] Edwin Dupont DO [address] [place] [address] Scheduled Procedures Name Priority Associated Diagnoses Date/Ti me COLONOSCOPY FLEXIBLE PROXIMAL DIAGNOSTIC Recall Screen for colon cancer Health Maintenance Due Date Last Done Comments Cologuard 01/12/2005 Fecal Occult Blood Test 01/12/2005 09/09/2001 Sigmoidoscopy 01/12/2005 Meningitis B Vaccine (Bexsero/Trumemba) (3 of 4 - Increased Risk Trumenba 3-dose series) 09/13/2021 09/13/2020, 02/12/2020 COVID-19 Vaccine ( season) 2024 04/19/2023, 04/25/2022, 11/04/2021, Additional history exists Influenza Vaccine (FLU shot) (#1) 2024 04/26/2024, 04/07/2023, 04/08/2022, Additional history exists Depression Screening 04/17/2024 04/17/2023 [...] 05/25/2023, 10/10/2022 Hepatitis B Vaccine Completed 03/31/2024, HPV (Gardasil) Vaccine Aged Out No lo nger eligible based on patient's age to complete this topic documented as of this encounter Medical Devices Not on filedocumented as of this encounter Care Teams Parachute Supervisor Relationship Specialty Start Date End Date Edwin Dupont DO [address] [address] PCP - General Family Medicine 10/14/20 documented as of this encounter
--- OUTSIDE RECORDS SUMMARY | 2024-06-14 13:36 | External Medical Summary | Summary of Care ---
Author Name Unknown Organization [facility] Address [address] [facility] [place] [address] Phone [phone] Care Team Providers Care Research And Development Technician Name Role Phone Lauren Dupont DO Primary Care Provider Reason for Visit * Reason Comments eRx-Medication Refill Encounter Details Date Type Department Care Team (Late st Contact Info) Description 04/13/2024 Refill Family Practice [facility] [address] [id number] Lauren Dupont DO [address] [place] [address] Hypothyroidism, unspecified type; Adjustment disorder with depressed mood Allergies Active Allergy Reactions Criticality Noted Date Comments Penicillins 08/02/2000 itching Zoster Vac Recomb Adjuvanted Fever 024 Elevated fever documented as of this encounter (statuses as of 04/15/2024) Medications Medication Sig Dispensed Refills Start Date [...] morning. Active Estring 2 MG Vaginal Ring (Estradiol)Indic [...] 09/21/2023 Active Spironolactone 50 MG Oral Tablet (Aldactone)Indic ations:Androgene tic alopecia Take 1 pill each AM for 2 weeks, then increase to 2 pills each AM and stay at that dose 180 Tablet 5 01/21/2024 Active Additional Information Patient not taking.Reported on 02/28/2024 LORazepam 0.5 MG Oral Tablet (Ativan)Indicati ons:Insomnia, [...] EVERY MORNING 90 Capsule 2 04/15/2024 Active Levothyroxine Sodium 88 MCG Oral Tablet (Levoxyl)Indicat ions:Hypothyroid ism, unspecified type TAKE 1 TABLET BY MOUTH DAILY WITH A GLASS OF WATER 90 Tablet 3 04/20/2023 04/15/20 24 Discontinued FLUoxetine HCl 20 MG Oral Capsule (PROzac)Indicati ons:Adjustment disorder with depressed mood TAKE 1 CAPSULE BY MOUTH EVERY MORNING 90 Capsule 1 11/06/2023 04/15/20 24 Discontinued documented as of this encounter (statuses as of 04/15/2024) Active Problems Problem Noted Date Diagnosed Date [...] 97, no 19 apr 05, 2005 pg 1422- 6024 Greater than 25% risk of breast cancer Chronic rhinitis 06/09/2002 Hypothyroidism 06/09/2002 BENIGN NEOPLASM SKIN -Dysplastic nevi 06/09/2002 documented as of this encounter (statuses as of 04/15/2024) Resolved Problems Problem Noted Date Diagnosed Date Resolved Date H/O splenomegaly 09/17/2015 10/04/2021 Uterine leiomyoma 02/21/2005 07/12/2006 Excessive menstruation 02/21/200507/12 documented as of this encounter (statuses as of 04/15/2024) Immunizations Name Administration Dates Next Due COVID-19 mRNA, LNP-s, No Pre serve, 2-Dose Series ([employer]) 04/13/2021,08/26/2020,08/05/2020 COVID-19, LNP-s, No Preserve , Wallace-sucrose, Ages 12+ (Pfizer) 11/04/2021 COVID-19, MRNA-LNP, 23-24, P F, 30 MCG/0.3 mL, 12 YRS AND ABOVE, IM ([facility]) 04/19/2023 Covid-19, Mrna, Lnp-s, Pf, B ivalent, 30 Mcg, IM, 12 yrs and above (Pfizer) 04/25/2022 HEPATITIS B VACCINE, RECOMB, 20 MCG/ML, [...] Influenza, Quadriva lent, No Preserve, IM 04/29/2016,04/07/2015 TDAP (age 10 and older)([employer]) 02/10/2019 TDAP, [...] our heating, water, or electric bill? No 04/17/2023 Is your family able to pay t he heat, water, or electric bill? (Household - for ages 0-17 years) Not on file 04/17/2023 Does your family have access to good internet? (Household - for ages 0-17 years) Not on file 04/17/2023 Employment Status Answer Date Recorded Are you unemployed or without regular income? No 04/17/2023 Does the household have a re gular source of income? (Household - for ages 0-17 years) Not on file 04/17/2023 Social Connections Answer Date Recorded How often do you feel lonely or isolated from th ose around you? Rarely 04/17/2023 Financial Resource Strain Answer Date R ecorded [...] encounter Miscellaneous Notes * Telephone Encounter - Qian Vasquez [facility] - 04/15/2024 8:35 AM EDTSigned Prescriptions: Disp Refills Levothyroxine Sodium 88 MCG Oral Tablet (L*90 Tab*2 Sig: TAKE 1 TABLET BY MOUTH DAILY WITH A GLASS OF WATERAuthorizing Provider: LAUREN DUPONT User: QIAN VASQUEZ FLUoxetine HCl 20 MG Oral Capsule (PROzac) 90 Cap*2 Sig: TAKE 1 CAPSULE BY MOUTH EVERY MORNINGAuthorizing Provider: LAUREN DUPONT User: QIAN VASQUEZ documented in this encounter Plan of Treatment Upcoming Encounters Date Type Department Care Team (Late st Contact Info) Description 06/03/2024 9:40 AM EST Office Visit [facility] [address] [place] [address] Lauren Dupont, [address] [place] [address] 11/03/2024 1:40 PM EDT Office Visit Rheumatology [address] [place] [address] Ej Shaw MD [address] [place] [address] [place] [address] 11/07/2024 10:45 AM EDT Office Visit Dermatology [facility] [address] [facility] [place] [address] Augie Loredo MD [address] [facility] [place] [address] 11/25/2024 9:40 AM EDT Office Visit [facility] [address] [place] [address] Lauren Dupont DO [address] [place] [address] Scheduled Procedures Name Priority Associated Diagnoses Date/Ti [...] exists Influenza Vaccine (FLU shot) (#1) 2024 04/07/2023, 04/08/2022, 03/19/2021, Additional history exists Depression Screening 04/17/2024 04/17/2023 [...] encounter Visit Diagnoses Diagnosis Hypothyroidism, unspecified type Adjustment disorder with depressed mood documented in this encounter Care Teams Research And Development Technician Relationship Specialty Start Date End Date Lauren Dupont DO [address] [address] PCP - General Family Medicine 10/14/20 documented as of this encounter
[2024-06-14] MEDS: POTASSIUM CHLORIDE CRTAB 20 MEQ TABCR PO ONE (13:48)
[2024-06-15 06:33] LABS: BUN Creatinine Ratio 22.2 (10-20); Calcium 9.3 mg/dl (8.6-10.3); Creatinine Clr Calc Pharmacy 72.2 ml/min; Potassium 4.4 mmol/L (3.5-5.1)
[2024-06-15 07:25] VITALS: BP 116/66; PULSE 76; RESP 14; TEMP 97.9; O2SAT 94
[2024-06-15] MEDS: REMDESIVIR 100 MG in SODIUM CHLORIDE 0.9% 230 ML IV SCH (09:12)
--- NOTE | 2024-06-15 10:02 | Discharge Summary ---
Discharge Summary Date of Service June 15, 2024 Principal Dx & Hospital Course #1 = Principal Diagnosis (1) Sepsis due to COVID-19: (2) Mesenteric adenitis: (3) Hodgkin's disease: (4) Asplenia: (5) Hypothyroidism: Plan Patient 64-year-old female with known history of Hodgkin's lymphoma and asplenia presents with nausea and vomiting and GI symptoms. Test positive for COVID-19. Patient at high risk for severe disease. Discussed empiric treatment with a 3- day course of remdesivir. Patient was agreeable. Patient was started on remdesivir. She tolerated well. Her GI symptoms improved significantly. She had no significant respiratory symptoms and required no supplemental oxygen. The patient's diet was advanced. She tolerated well. She completed 3-day course of prophylactic remdesivir. Her vital signs are stable. She can be discharged home to outpatient care and follow-up. Notes For Next Care Provider Medication Changes From Visit None Admission HPI Per Admitting Provider History obtained from patient and records. Medical history significant for valvular heart disease (mild AR/TR, TTE 2021), Hodgkin's disease status post splenectomy status post radiation status post prophylactic bilateral mastectomy, hypothyroidism. Last confinement May 2023 for fever following shingles vaccination. Patient woke up early this morning not feeling well. Fever, chills, later followed by achy headache, upper abdominal pain, nausea, vomiting symptoms. Denies chest pain, cough, SOB. Denies diarrhea/dysuria symptoms. Possible sick contacts at work. Worsening symptoms later in the day. Temperature elevation of 101 at home. Patient took naproxen prior to coming to ER. IV ceftriaxone administered at the ER. 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, [employer] work Admission Exam Per Admitting Provider See H&P Discharge Exam Constitutional: Alert HEENT: Mucous membranes moist. Lungs: Clear to auscultation, decreased, no wheezes rales or rhonchi CV: S1-S2, regular Abdomen: Soft, nontender, nondistended Extremities: No significant edema Neuro: No focal deficits Psych: Cooperative, normal mood Updated Medication List Medication Instructions Recorded Confirmed Type fluoxetine 20 mg capsule 20 mg PO DAILY 02/08/21 06/12/24 History lorazepam 0.5 mg tablet 0.5 mg PO HS PRN Insomnia 02/08/21 06/12/24 History clindamycin HCl 300 mg capsule 600 mg (2 x 300 mg) PO ONCE PRN 11/11/21 06/12/24 Rx prophylaxis #14 caps cholecalciferol (vitamin D3) 25 25 mcg PO DAILY 05/27/23 06/12/24 History mcg (1,000 unit) tablet levothyroxine 88 mcg tablet 88 mcg PO DAILYBB 05/27/23 06/12/24 History propranolol 20 mg tablet 20 mg PO TID PRN palpitations #60 06/19/23 06/12/24 Rx tabs azelastine 137 mcg (0.1 %) nasal 2 spray intranasal BID #90 mL 10/15/23 06/12/24 Rx spray Estring 2 mg (7.5 mcg/24 hour) 1 vag ring vaginal Q90D #1 ea 03/18/24 06/12/24 Rx vaginal ring (estradiol) albuterol sulfate 90 mcg/actuation 2 puff inhalation Q4 PRN WHEEZE 06/12/24 06/12/24 History aerosol inhaler finasteride 5 mg tablet 1.25 mg PO DAILY 06/12/24 06/12/24 History Hospital Stay Data Consultations 06/12/24 23:10 ED Decision to Admit Stat Diagnostic Imagining Performed 06/13/24 01:16 CT Abd and Pelvis [CT abd pelvis IV con only] Stat Reviewed imaging, laboratory and diagnostic studies. Pertinent findings as below. Electrolytes within normal range Creatinine 0.72 LFTs within normal range Blood and urine cultures no significant growth Pending Results Patient Have Any Pending Studies at Discharge: No Discharge Instructions Given to Patient (Per Discharging Provider) Recommend masking for another 5 days when going out in public Total Time Total Time Spent Total Time Spent (In Minutes): 24
[2024-06-15 11:58] LABS: Adenovirus F 40/41 PCR Not Detected (NotDetected); Astrovirus PCR Not Detected (NotDetected); Campylobacter PCR Not Detected (NotDetected); Cryptosporidium PCR Not Detected (NotDetected); Cyclospora cayetanensis PCR Not Detected (NotDetected); Entamoeba histolytica PCR Not Detected (NotDetected); Enteroaggregative E.coli(EAEC) Not Detected (NotDetected); Enteropathogenic E.coli (EPEC) Not Detected (NotDetected); Enterotoxigenic E.coli (ETEC) Not Detected (NotDetected); Giardia lamblia PCR Not Detected (NotDetected); Plesiomonas shigelloides PCR Not Detected (NotDetected); Rotavirus A PCR Not Detected (NotDetected); Salmonella PCR Not Detected (NotDetected); Sapovirus PCR Not Detected (NotDetected); Shiga-like Toxin E.coli (STEC) Not Detected (NotDetected); Shigella/Enteroinvasive E.coli Not Detected (NotDetected); Vibrio cholerae PCR Not Detected (NotDetected); Vibrio species PCR Not Detected (NotDetected); Yersinia enterocolitica PCR Not Detected (NotDetected)
[2024-06-15 12:36] LABS: Norovirus GI/GII PCR DETECTED (NotDetected)
== END 2024-06-15 10:45 | disposition home or self-care (01) | DRG 871 ==
LOC: ED 20:59 → EDINP 23:59 → 3E 06-13 01:39